=== PATIENT | male | born 1955 | race Caucasian/White ===

== ENCOUNTER 2023-06-29 08:18 | Outpatient (AMB) | payer MEDICARE, SELFPAY ==
--- NOTE | 2023-06-29 08:46 | MHC.OFFVIS ---
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 He is a patient of Dr. Lang. He is seen for the following urologic conditions - nephrolithiasis Telemedicine Evaluation 15 min Consultation [employer] Video attempted Had episode of balanitis Treated with topical powder - antifungal Plan for renal US in November Nephrolithiasis Prior intervention 2018 No recent imaging Review of Systems Const All systems reviewed & are unremarkable except as noted in HPI and below Reports no additional complaints Resp Reports no additional complaints GI Reports no additional complaints Reports as per HPI Musc Reports no additional complaints Physical Exam Telemedicine evaluation Appropriate responses Regular breathing rate and rhythm HEENT Head: Yes normal to inspection Ears: hearing grossly normal bilaterally Eyes General: appearance normal, both eyes and all related structures Neck Neck: Yes normal visual inspection Chest Chest palpation & inspection: normal inspection of the chest Resp Effort & Inspection: normal respiratory effort and able to speak in complete sentences Assessment & Plan Assessment & Plan (1) Nephrolithiasis: Code(s): N20.0 - Calculus of kidney Plan 6m f/u renal US Orders: Orders US renal BI 6 Months N20.0 - Calculus of kidney Patient Instructions: Imaging studies, laboratory and physical exam results were discussed and reviewed in detail. No major barriers to patient understanding were identified. An opportunity to ask questions regarding the treatment plan was provided. All questions were answered. The patient expressed understanding and agreement with the above treatment plan. The patient is aware they should contact our office by phone for worsening of their current condition or the appearance of new urologic symptoms. Compliance is encouraged with any medications and followup testing that is ordered. It is a privilege to participate in the urologic care of your patient. If you have any questions or concerns regarding treatment for the above conditions, or other urologic issues, please do not hesitate to contact me. The office telephone contact is [phone]. This note is constructed using voice recognition software. While every effort has been made to ensure accuracy field appraiser errors may have been included. Yours sincerely, Dr Johnny Gonzáles MD, VIN[facility] - Urology Providers of Expert, Compassionate Care for the Genitourinary System Telehealth Telehealth Location of provider rendering services: practice address Location of patient: address on file Patient Identification confirmed using: Name, : Yes Telehealth method: video Patient verbally consented to treatment: Yes Patient verbally consented to billing insurance company: Yes Patient informed of any privacy concerns related to visit: Yes Coding Level of Care Code Tele New Pt Level 3 (55930) Diagnoses Nephrolithiasis N20.0
== END 2023-06-29 10:17 | disposition home or self-care (01) ==
LOC: HO.HUSH 08:18
PROVIDERS: PCP Internal Medicine; Visit Provider Urology
DX: N20.0 Calculus of kidney (principal)
CPT/HCPCS: 99202

== ENCOUNTER → 2023-06-29 08:18 | Outpatient (BNVA) | payer MEDICARE, SELFPAY | PROVIDERS: PCP Internal Medicine; Visit Provider Urology ==

== ENCOUNTER 2024-01-28 13:18 | Outpatient (REF) | payer MEDICARE, SELFPAY ==
--- NOTE | ~2024-01-28 | US_ITS ---
EXAMINATION: US RETROPERITONEAL LIMITED (RENAL ONLY) CLINICAL INFORMATION: Calculus of kidney. COMPARISON: X-ray KUB 02/15/2019. TECHNIQUE: Real-time imaging of the kidneys. FINDINGS: RIGHT KIDNEY: 12.4 x 6.1 x 5.9 cm (SAG x AP x TRV). The kidney is normal in size, contour, and echogenicity. Renal cortical thickness is normal. No renal calculi or hydronephrosis. 2.1 cm simple cyst in the upper pole. 1.0 cm simple cyst in the mid kidney. No follow-up imaging is recommended. LEFT KIDNEY: 11.4 x 5.7 x 6.0 cm (SAG x AP x TRV). The kidney is normal in size, contour, and echogenicity. Renal cortical thickness is normal. No focal parenchymal lesions or hydronephrosis. 6 mm upper pole and 5 mm mid renal calculi. US/US renal BI IMPRESSION: Nonobstructing right renal calculi. No hydronephrosis.
== END 2024-01-28 13:19 | disposition home or self-care (01) ==
LOC: HO.US 13:18
PROVIDERS: Visit Provider Urology
DX: N20.0 Calculus of kidney (principal)
CPT/HCPCS: 76775

== ENCOUNTER 2024-02-11 09:53 | Outpatient (AMB) | payer MEDICARE, SELFPAY ==
--- NOTE | 2024-02-11 10:13 | MHC.OFFVIS ---
Intake Visit Reasons: US/Follow-up Intake Note: Patient is Present for Follow Up Urology Medication: None Antibiotic Allergies: Neomycin, Bacitracin Blood Thinners:None Allergies bacitracin [From NEOSPORIN ([id number])] Allergy (Unknown, Verified 02/11/24 10:15) RASH neomycin [From NEOSPORIN ([id number])] Allergy (Unknown, Verified 02/11/24 10:15) RASH polymyxin B [From NEOSPORIN ([id number])] Allergy (Unknown, Verified 02/11/24 10:15) RASH Neosporin Allergy (Unknown, Uncoded 02/11/24 10:15) Unknown Medication List - Last Reconciled 02/11/24 by Johnny Gonzáles MD amlodipine 10 mg PO DAILY atorvastatin 40 mg PO DAILY carvedilol 12.5 mg PO BID empagliflozin (Jardiance) 25 mg PO DAILY insulin degludec (Tresiba FlexTouch U-200 insulin) units subcut lisinopril 40 mg PO DAILY pen needle, diabetic (BD Vanda 2nd Gen Pen Needle) As directed sertraline 100 mg PO DAILY HPI Comments Details: Nate is a pleasant male. He is a patient of Dr. Lagn. He is seen for the following urologic conditions - nephrolithiasis in setting of diabetes Check hormonal labs Start tadalafil 5 mg daily Recently sold [employer] Nephrolithiasis Prior intervention 2019 Imaging - 02/03 renal ultrasound normal - bilateral cysts Diabetes - insulin and Jardiance Review of Systems Const Denies chills and Denies fever(s) Card Reports no additional complaints and Denies syncope Resp Denies cough GI Denies abdominal pain and Denies heartburn Reports as per HPI and Denies change in libido Neuro Denies syncope Psych Denies change in libido Endo Denies change in libido Physical Exam Const General: cooperative, healthy appearing, comfortable and no acute distress Orientation/consciousness: patient oriented x3 HEENT Face and sinus: Yes normal facial exam Mouth: moist mucous membranes Neck Neck: Yes normal visual inspection, Yes full ROM and Yes trachea midline Chest Chest palpation & inspection: normal inspection of the chest Resp Effort & Inspection: normal respiratory effort, able to speak in complete sentences and no respiratory distress GI Inspection: Yes normal to inspection Back/Spine/Pelvis Cervical Spine: normal cervical lordosis Thoracic/Lumbar Spine: thoracic and lumbar spine normal to inspection Skin General skin exam: no rashes or lesions noted Neuro General: patient oriented x3, gait normal, tone normal and moves all extremities Extrem General: Yes normal to inspection and Yes capillary refill normal Assessment & Plan Assessment & Plan (1) Low libido: Code(s): R68.82 - Decreased libido Category: Medical Plan Check baseline hormonal labs Six-month follow-up Trial tadalafil Orders: Orders Lutenizing Hormone 02/11/24 R68.82 - Decreased libido Estradiol Ultra Sensitive 02/11/24 E29.1 - Testicular hypofunction Sex Hormone Binding Globulin 02/11/24 R68.82 - Decreased libido Testosterone, Total 02/11/24 C61 - Malignant neoplasm of prostate Albumin Level 02/11/24 E29.1 - Testicular hypofunction Medications: New tadalafil 5 mg PO DAILY 90 tabs 0RF sexual activity 90 days R68.82 - Decreased libido Patient Instructions: Imaging studies, laboratory and physical exam results were discussed and reviewed in detail. No major barriers to patient understanding were identified. An opportunity to ask questions regarding the treatment plan was provided. All questions were answered. The patient expressed understanding and agreement with the above treatment plan. The patient is aware they should contact our office by phone for worsening of their current condition or the appearance of new urologic symptoms. Compliance is encouraged with any medications and followup testing that is ordered. It is a privilege to participate in the urologic care of your patient. If you have any questions or concerns regarding treatment for the above conditions, or other urologic issues, please do not hesitate to contact me. The office telephone contact is [phone]. This note is constructed using voice recognition software. While every effort has been made to ensure accuracy puppet master errors may have been included. Yours sincerely, Dr Johnny Gonzáles MD, [facility] - Urology Providers of Expert, Compassionate Care for the Genitourinary System Coding Level of Care Code Est Pt Level 4 (32208) Diagnoses Low libido R68.82
== END 2024-02-11 11:00 | disposition home or self-care (01) ==
PROVIDERS: Visit Provider Urology
DX: R68.82 Decreased libido (principal)
CPT/HCPCS: 99214

== ENCOUNTER → 2024-02-11 09:53 | Outpatient (BNVA) | payer MEDICARE, SELFPAY | PROVIDERS: Visit Provider Urology | DX: R68.82 Decreased libido (principal); N20.0 Calculus of kidney; E11.9 Type 2 diabetes mellitus without complications; Z79.4 Long term (current) use of insulin; Z79.84 Long term (current) use of oral hypoglycemic drugs | CPT/HCPCS: 99212 ==

== ENCOUNTER 2024-05-12 09:53 | Outpatient (AMB) | payer MEDICARE, SELFPAY ==
--- NOTE | 2024-05-12 10:35 | A.OFFVIS_ITS ---
Intake Visit Reasons: 3M Testosterone/Med Review(Tadalafil) Intake Note: Patient is Present for Follow Up Med Review: PT state here for follow on meds,He never received the meds Urology Medication:Tadalafil Antibiotic Allergies:Bacitracin,neomycin Blood Thinners:none Allergies bacitracin [From NEOSPORIN ([id number])] Allergy (Unknown, Verified 02/11/24 10:15) RASH neomycin [From NEOSPORIN ([id number])] Allergy (Unknown, Verified 02/11/24 10:15) RASH polymyxin B [From NEOSPORIN ([id number])] Allergy (Unknown, Verified 02/11/24 10:15) RASH Neosporin Allergy (Unknown, Uncoded 02/11/24 10:15) Unknown HPI Comments Details: Nate is a pleasant male. He is a patient of Dr. Lang. He is seen for the following urologic conditions - nephrolithiasis in setting of diabetes - hypogonadism Testosterone low Refill tadalafil prescription Start testosterone Three-month follow-up Recently sold [employer] Hypogonadism Lack of libido Decline energy Labs show low T in setting of diabetes 04/05 306 Nephrolithiasis Prior intervention 2019 Imaging - 02/03 renal ultrasound normal - bilateral cysts Diabetes - insulin and Jardiance Review of Systems Const Denies chills and Denies fever(s) Card Reports no additional complaints and Denies syncope Resp Denies cough GI Denies abdominal pain and Denies heartburn Reports as per HPI and Denies change in libido Neuro Denies syncope Psych Denies change in libido Endo Denies change in libido Physical Exam Const General: cooperative, healthy appearing, comfortable and no acute distress Orientation/consciousness: patient oriented x3 HEENT Face and sinus: Yes normal facial exam Mouth: moist mucous membranes Neck Neck: Yes normal visual inspection, Yes full ROM and Yes trachea midline Chest Chest palpation & inspection: normal inspection of the chest Resp Effort & Inspection: normal respiratory effort, able to speak in complete sentences and no respiratory distress GI Inspection: Yes normal to inspection Back/Spine/Pelvis Cervical Spine: normal cervical lordosis Thoracic/Lumbar Spine: thoracic and lumbar spine normal to inspection Skin General skin exam: no rashes or lesions noted Neuro General: patient oriented x3, gait normal, tone normal and moves all extremities Extrem General: Yes normal to inspection and Yes capillary refill normal Assessment & Plan Assessment & Plan (1) Hypogonadism in male: Code(s): E29.1 - Testicular hypofunction Category: Medical (2) Low libido: Code(s): R68.82 - Decreased libido Category: Medical (3) Nephrolithiasis: Code(s): N20.0 - Calculus of kidney Category: Medical (4) Erectile dysfunction associated with type 2 diabetes mellitus: Code(s): E11.69 - Type 2 diabetes mellitus with other specified complication; N52.1 - Erectile dysfunction due to diseases classified elsewhere Category: Medical Plan Start T Labs Orders: Orders Prostate Specific Antigen 3 Months E29.1 - Testicular hypofunction Testosterone, Total 3 Months E29.1 - Testicular hypofunction Medications: New needle (disp) 22 G (Easy Touch Hypodermic Needle) As directed for T injections 30 ea 0RF E29.1 - Testicular hypofunction needle (disp) 18 G (BD Regular Bevel [place]) As directed - draw up testosterone 30 ea 0RF E29.1 - Testicular hypofunction syringe (disposable) (BD Bulk Syringe Slip Tip) As directed 30 ea 0RF E29.1 - Testicular hypofunction testosterone cypionate (Depo-Testosterone) 100 mg (0.5 mL) subcut QWEEK 4 weeks 2 mL 5RF E29.1 - Testicular hypofunction tadalafil 5 mg PO DAILY 90 days 90 tabs 1RF sexual activity E11.69 - Type 2 diabetes mellitus with other specified complication, N52.1 - Erectile dysfunction due to diseases classified elsewhere Discontinued tadalafil Discontinued Reason: Patient Completed Course 5 mg PO DAILY 90 days 90 tabs 0RF sexual activity R68.82 - Decreased libido Patient Instructions: Imaging studies, laboratory and physical exam results were discussed and reviewed in detail. No major barriers to patient understanding were identified. An opportunity to ask questions regarding the treatment plan was provided. All questions were answered. The patient expressed understanding and agreement with the above treatment plan. The patient is aware they should contact our office by phone for worsening of their current condition or the appearance of new urologic symptoms. Compliance is encouraged with any medications and followup testing that is ordered. It is a privilege to participate in the urologic care of your patient. If you have any questions or concerns regarding treatment for the above conditions, or other urologic issues, please do not hesitate to contact me. The office te lephone contact is [phone]. This note is constructed using voice recognition software. While every effort has been made to ensure accuracy resource economist errors may have been included. Yours sincerely, Dr Johnny Gonzáles MD, [facility] - Urology Providers of Expert, Compassionate Care for the Genitourinary System Coding Level of Care Code Est Pt Level 4 (60402) Diagnoses Hypogonadism in male E29.1 Low libido R68.82 Nephrolithiasis N20.0 Erectile dysfunction associated with type 2 diabetes mellitus E11.69; N52.1
== END 2024-05-12 11:08 | disposition home or self-care (01) ==
PROVIDERS: Visit Provider Urology
DX: E29.1 Testicular hypofunction (principal); R68.82 Decreased libido; N20.0 Calculus of kidney; E11.69 Type 2 diabetes mellitus with other specified complication; N52.1 Erectile dysfunction due to diseases classified elsewhere
CPT/HCPCS: 99214

== ENCOUNTER → 2024-05-12 09:53 | Outpatient (BNVA) | payer MEDICARE, SELFPAY | PROVIDERS: Visit Provider Urology | DX: N20.0 Calculus of kidney (principal); E29.1 Testicular hypofunction; R68.82 Decreased libido; E11.69 Type 2 diabetes mellitus with other specified complication; N52.1 Erectile dysfunction due to diseases classified elsewhere | CPT/HCPCS: 99212 ==

== ENCOUNTER 2024-09-01 14:52 | Outpatient (AMB) | payer MEDICARE, SELFPAY ==
--- NOTE | 2024-09-01 14:53 | A.OFFVIS_ITS ---
Intake Visit Reasons: 3M PSA/Testo(set) Intake Note: Patient is present for 3M PSA/TESO Urology Medication:TADALAFIL Antibiotic Allergy:BACITRACIN,NEOMYCIN,POLYMYXIN,NEOSPORIN Blood Thinner:NONE Maintenance Technician 2Nd Shift Required: No Allergies bacitracin [From NEOSPORIN ([id number])] Allergy (Unknown, Verified 09/01/24 14:55) RASH neomycin [From NEOSPORIN ([id number])] Allergy (Unknown, Verified 09/01/24 14:55) RASH polymyxin B [From NEOSPORIN ([id number])] Allergy (Unknown, Verified 09/01/24 14:55) RASH Neosporin Allergy (Unknown, Uncoded 09/01/24 14:55) Unknown HPI Comments Details: Nate is a pleasant male. He is a patient of Dr. Lang. 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 [employer] Hypogonadism Lack of libido Decline energy Labs show low T in setting of diabetes 04/05 306, 08/06 T 800 PSA 0.7 Nephrolithiasis Prior intervention 2019 Imaging - 02/03 renal ultrasound normal - bilateral cysts Diabetes - insulin and Jardiance Review of Systems Const Denies chills and Denies fever(s) Card Reports no additional complaints and Denies syncope Resp Denies cough GI Denies abdominal pain and Denies heartburn Reports as per HPI and Denies change in libido Neuro Denies syncope Psych Denies change in libido Endo Denies change in libido Physical Exam Const General: cooperative, healthy appearing, comfortable and no acute distress Orientation/consciousness: patient oriented x3 HEENT Face and sinus: Yes normal facial exam Mouth: moist mucous membranes Neck Neck: Yes normal visual inspection, Yes full ROM and Yes trachea midline Chest Chest palpation & inspection: normal inspection of the chest Resp Effort & Inspection: normal respiratory effort, able to speak in complete sentences and no respiratory distress GI Inspection: Yes normal to inspection Back/Spine/Pelvis Cervical Spine: normal cervical lordosis Thoracic/Lumbar Spine: thoracic and lumbar spine normal to inspection Skin General skin exam: no rashes or lesions noted Neuro General: patient oriented x3, gait normal, tone normal and moves all extremities Extrem General: Yes normal to inspection and Yes capillary refill normal Assessment & Plan Assessment & Plan (1) Erectile dysfunction associated with type 2 diabetes mellitus: Code(s): E11.69 - Type 2 diabetes mellitus with other specified complication; N52.1 - Erectile dysfunction due to diseases classified elsewhere Category: Medical (2) Low libido: Code(s): R68.82 - Decreased libido Category: Medical Plan Six-month follow-up lab work Orders: Orders Prostate Specific Antigen 6 Months E29.1 - Testicular hypofunction Testosterone, Total 6 Months E29.1 - Testicular hypofunction Complete Blood Count no Diff 6 Months E29.1 - Testicular hypofunction Patient Instructions: Imaging studies, laboratory and physical exam results were discussed and r eviewed in detail. No major barriers to patient understanding were identified. An opportunity to ask questions regarding the treatment plan was provided. All questions were answered. The patient expressed understanding and agreement with the above treatment plan. The patient is aware they should contact our office by phone for worsening of their current condition or the appearance of new urologic symptoms. Compliance is encouraged with any medications and followup testing that is ordered. It is a privilege to participate in the urologic care of your patient. If you have any questions or concerns regarding treatment for the above conditions, or other urologic issues, please do not hesitate to contact me. The office telephone contact is [phone]. This note is constructed using voice recognition software. While every effort has been made to ensure accuracy wrapper sizer errors may have been included. Yours sincerely, Dr Johnny Gonzáles MD, [facility] - Urology Providers of Expert, Compassionate Care for the Genitourinary System Coding Level of Care Code Est Pt Level 4 (94945) Diagnoses Erectile dysfunction associated with type 2 diabetes mellitus E11.69; N52.1 Low libido R68.82
--- OUTSIDE RECORDS SUMMARY | 2024-09-01 14:53 | XMS_ITS ---
Author Name [facility] Organization Unknown History of Medication Use Medication Directions Dispensed Refills Start Date End Date Stat NovoLOG FLEXPEN, insulin aspart, 100 UNIT/ML prefilled pen injection INJECT 10 UNITS THREE TIMES DAILY BEFORE MEALS 06/03/2024 active tadalafil (CIALIS) 5 mg tablet TAKE 1 TABLET BY MOUTH DAILY FOR SEXUAL ACTIVITY 06/03/2024 active nystatin (MYCOSTATIN) 359651 UNIT/GM cream Apply topically 2 (two) times a day. 06/02/2024 active hydrocortisone (ANUSOL-HC) 2.5 % rectal cream Insert into the rectum 3 (three) times a day as needed for hemorrhoids. 06/02/2024 active testosterone cypionate (DEPO-TESTOSTERONE CYPIONATE) 200 mg/mL injection INJECT 0.5ML INTO SKIN ONCE A WEEK FOR 4 WEEKS 06/02/2024 active pyridoxine (B-6) 25 MG tablet Take 25 mg by mouth daily. 06/02/2024 active insulin degludec (Tresiba FlexTouch) 100 UNIT/ML prefilled pen injection ADMINISTER 16 UNITS UNDER THE SKIN DAILY AT BEDTIME 06/02/2024 active atorvastatin (LIPITOR) 20 MG tablet Take 1 tablet (20 mg total) by mouth daily. 02/14/2024 active Coenzyme Q10 (Co Q 10) 10 MG Cap Take 1 tablet by mouth. 02/12/2023 active Cholecalciferol (VITAMIN D3 PO) Take by mouth daily. 02/12/2023 active Ozempic, 1 MG/DOSE, 4 MG/3ML prefilled pen injection INJECT 1 MG UNDER THE SKIN ONCE A WEEK 02/12/2023 active polyethylene glycol (COLYTE) 240 g solution Night Before: Drink 8 Oz (1 cup) every 10 minutes until HALF of jug is finished. Day of: Drink 8 Oz (1 cup) every 10 minutes until empty. 02/12/2023 aborted amLODIPine (NORVASC) 10 MG tablet amlodipine 10 mg tablet TAKE ONE TABLET BY MOUTH ONE TIME DAILY 02/12/2023 active atorvastatin (LIPITOR) 20 MG tablet daily. 02/12/2023 active sodium chloride 0.9% (NS) infusion 150 mL/hr, Intravenous, Continuous, Starting on Angelina 04/22/23 at 0830, Pre-Procedure (GI)May adjust as needed. 04/25/2023 active sertraline (ZOLOFT) 100 MG tablet Take by mouth. 02/12/2023 active carvedilol (COREG) 12.5 MG tablet 2 (two) times a day. 02/12/2023 active lisinopril (PRINIVIL,ZeSTRIL) 40 MG tablet 02/12/2023 active empagliflozin (Jardiance) 25 MG tablet 02/12/2023 active glipiZIDE (GLUCOTROL XL) 10 mg 24 hr tablet Take 10 mg by mouth. 02/12/2023 active hydrochlorothiazide (MICROZIDE) 12.5 MG capsule 2 (two) times a day. 02/12/2023 active Sod Picosulfate-Mag Ox-Cit Acd (CLENPIQ) 10-3.5-12 MG-GM -GM/175ML Solution Take as directed 04/03/2023 active Problems Problem Status Onset Date Problem Type Date of Resolution Source Incisional hernia, without obstruction or gangrene active 2020-06-03 ProblemAct [facility] Essential hypertension active 2024-02-11 ProblemAct [facility] Renal cysts, acquired, bilateral active 2024-02-11 ProblemAct [facility] Adenomatous polyp of colon, unspecified part of colon active EncounterDiagnosisAct [facility] Hemorrhoids, unspecified hemorrhoid type active EncounterDiagnosisAct [facility] Skin rash active EncounterDiagnosisAct [facility] History of renal carcinoma active 2013-11-13 ProblemAct [facility] CKD stage 3a, GFR 45-59 ml/min active 2024-02-11 ProblemAct [facility] Smoking active 2024-02-11 ProblemAct [facility] Hyperlipidemia active 2013-11-13 ProblemAct [facility] CT Hx of adenomatous colonic polyps active 2020-06-09 ProblemAct [facility] Renal cell carcinoma of left kidney active 2024-02-11 ProblemAct [facility] Diarrhea active 2020-06-03 ProblemAct [facility] Diabetic nephropathy associated with type 2 diabetes mellitus active 2024-02-11 ProblemAct [facility] Fatty liver active 2013-12-20 ProblemAct [facility] Anxiety and depression active 2013-11-13 ProblemAct [facility] Increased BMI active 2020-06-03 ProblemAct [facility] T Diabetes mellitus active 2017-07-02 ProblemAct [facility]
== END 2024-09-01 15:34 | disposition home or self-care (01) ==
PROVIDERS: Visit Provider Urology
DX: E11.69 Type 2 diabetes mellitus with other specified complication (principal); N52.1 Erectile dysfunction due to diseases classified elsewhere; R68.82 Decreased libido
CPT/HCPCS: 99214

== ENCOUNTER → 2024-09-01 14:52 | Outpatient (BNVA) | payer MEDICARE, SELFPAY | PROVIDERS: Visit Provider Urology | DX: E29.1 Testicular hypofunction (principal); E11.69 Type 2 diabetes mellitus with other specified complication; N52.1 Erectile dysfunction due to diseases classified elsewhere; R68.82 Decreased libido; Z87.898 Personal history of other specified conditions | CPT/HCPCS: 99212 ==

== ENCOUNTER 2025-02-20 12:23 | Outpatient (REF) | payer MEDICARE, SELFPAY ==
[2025-02-20 13:37] LABS: Hematocrit 47.4 % (42.0-52.0); Hemoglobin 15.9 g/dl (14.0-18.0); Mean Corpuscular HGB Conc 33.5 g/dl (31.0-36.0); Mean Corpuscular Hemoglobin 31.1 pg (27.0-33.0); Mean Corpuscular Volume 92.6 fL (80.0-98.0); Mean Platelet Volume 10.9 fL (9.4-12.4); Platelet Count 234 X10*3/uL (160-400); Red Blood Count 5.12 X10*6/uL (4.60-5.80); Red Cell Distribution Width 12.8 % (11.0-16.0); White Blood Count 8.6 X10*3/uL (4.8-10.8)
[2025-02-20 14:09] LABS: Prostate Specific Antigen 2.56 ng/mL (<0.05-4.0)
--- OUTSIDE RECORDS SUMMARY | 2025-02-20 14:36 | XMS_ITS | Encounter Summary ---
Author Organization [facility] Address [address] [place] [address] Care Team Providers Care Hook And Eye Attacher Name Role Phone Jaymie Us DO Primary Care Provider Marie Hayes DO Unavailable Jacob Willis MD Primary Care Provider [phone] Encounter Details Date Type Department Care Team (Late st Contact Info) Description 02/14/2024 Scanned Document [facility] Department of Internal Medicine & Nephrology [place] [address] [facility] [address] [place] [address] Maykel Vizcaino MD 85 [facility] [address] [place], [place] [id number] Social History Tobacco Use Types Packs/Day Years Used Date Smoking Tobacco: Every Day Cigarettes 1 46.4 Started: 1977 Smokeless Tobacco: Never Alcohol Use Standard Drinks/Week Comments Yes 2 (1 standard drink = 0.6 oz pur e alcohol) 2 shots of vodka a day AUDIT-C Answer Date Recorded Q1: How often do you have a drink containing alcohol? 4 or more times a week 04/12/2020 Q2: How many drinks containi ng alcohol do you have on a typical day when you are drinking? 1 or 2 0 Q3: How often do you have si x or more drinks on one occasion? Not asked 04/12/2020 Sex and Gender Information Value Date Recorded Sex Assigned at Male 05/30/2024 3:00 PM EDT Legal Sex Male 9:11 AM EDT Gender Identity Male 05/30/2024 3:00 PM EDT Sexual Orientation Homosexual (lesbian or null) 0 05/30/2024 3:00 PM EDT documented as of this encounter Plan of Treatment Upcoming Encounters Date Type Department Care Team (Late st Contact Info) Description 03/30/2025 1:20 PM EDT Office Visit [facility] Department of Internal Medicine & Nephrology [place] [address] [place] [phone] Maykel Vizcaino MD [address] [address] 05/18/2025 1:00 PM EDT Office Visit [facility] Department of Internal Medicine [address] [address] Jacob Willis MD [address] [place] [address] 07/17/2025 2:00 PM EST Consult [facility] [place] [address] [place] [phone] Jacob Willis MD [address] [place] [address] Shilpa Wilkes MD [address] [place] [address] 02/22/2026 1:00 PM EDT Office Visit [facility] Department of Internal Medicine & Nephrology [place] [address] [place] [phone] Maykel Vizcaino MD [address] [address] documented as of this encounter Procedures Procedure Name Priority Date/Time Associated Diagnosis Comments LAB RESULT 02/14/2024 6:07 PM EDT documented in this encounter Results * LAB RESULT (02/14/2024 6:07 PM EDT) Maykel Vizcaino MD HX AMB PROCEDURES Final R esult documented in this encounter Visit Diagnoses Not on filedocumented in this encounter Care Teams Hook And Eye Attacher Relationship Specialty Start Date End Date Jaymie Us DO [address] [place] [address] PCP - General Family Medicine 02/10/23 02/06/25 Jacob Willis MD [address] [place] [address] PCP - General Internal Medicine 02/07/25 Marie Hayes DO [address] [place] [address] Endocrinology 02/11/24 documented as of this encounter
[2025-02-24 15:59] LABS: Testosterone, Total 318 ng/dL (250-1100)
== END 2025-02-20 12:24 | disposition home or self-care (01) ==
LOC: HO.10HDL 12:23
PROVIDERS: Visit Provider Urology
DX: E29.1 Testicular hypofunction (principal); Z12.5 Encounter for screening for malignant neoplasm of prostate
CPT/HCPCS: 36415; 84153; 84403; 85027

== ENCOUNTER 2025-03-06 13:08 | Outpatient (AMB) | payer MEDICARE, SELFPAY ==
--- NOTE | 2025-03-06 13:24 | MHC.OFFVIS ---
Intake Visit Reasons: 6m/labs Intake Note: Patient is present for 6M/LABS Urology Medication:TADALAFIL,TESTSERONE Antibiotic Allergy:BACITRACIN,NEOMYCIN,POLYMYCIN,NEOSPORIN Blood Thinner:NONE Mitigation Supervisor Required: No Allergies bacitracin (From NEOSPORIN ([id number])) Allergy (Unknown, Verified 03/06/25 13:27) RASH neomycin (From NEOSPORIN ([id number])) Allergy (Unknown, Verified 03/06/25 13:27) RASH polymyxin B (From NEOSPORIN ([id number])) Allergy (Unknown, Verified 03/06/25 13:27) RASH Neosporin Allergy (Unknown, Uncoded 03/06/25 13:27) Unknown HPI Comments Details: Nate is a pleasant male. He is a patient of Dr. Lang. He is seen for the following urologic conditions - nephrolithiasis in setting of diabetes - hypogonadism Six-month follow-up Had been spacing shots out secondary to acne Recommend dropping dosage to 0.4 cc weekly Prescriptions for right Previously ran [facility] Hypogonadism Lack of libido Decline energy Labs show low T in setting of diabetes 04/05 306, 08/06 T 800 PSA 0.7, 03/07 T 320 2.6 Wednesday Nephrolithiasis Prior intervention 2019 Imaging - 02/03 renal ultrasound normal - bilateral cysts Diabetes - insulin and Jardiance Review of Systems Const Denies chills and Denies fever(s) Card Reports no additional complaints and Denies syncope Resp Denies cough GI Denies abdominal pain and Denies heartburn Reports as per HPI and Denies change in libido Neuro Denies syncope Psych Denies change in libido Endo Denies change in libido Physical Exam Const General: cooperative, healthy appearing, comfortable and no acute distress Orientation/consciousness: patient oriented x3 HEENT Face and sinus: Yes normal facial exam Mouth: moist mucous membranes Neck Neck: Yes normal visual inspection, Yes full ROM and Yes trachea midline Chest Chest palpation & inspection: normal inspection of the chest Resp Effort & Inspection: normal respiratory effort, able to speak in complete sentences and no respiratory distress GI Inspection: Yes normal to inspection Back/Spine/Pelvis Cervical Spine: normal cervical lordosis Thoracic/Lumbar Spine: thoracic and lumbar spine normal to inspection Skin General skin exam: no rashes or lesions noted Neuro General: patient oriented x3, gait normal, tone normal and moves all extremities Extrem General: Yes normal to inspection and Yes capillary refill normal Assessment & Plan Assessment & Plan (1) Low libido: Code(s): R68.82 - Decreased libido Category: Medical (2) Erectile dysfunction associated with type 2 diabetes mellitus: Code(s): E11.69 - Type 2 diabetes mellitus with other specified complication; N52.1 - Erectile dysfunction due to diseases classified elsewhere Category: Medical Plan Adjust testosterone dosing Six-month follow-up labor Orders: Orders Prostate Specific Antigen 6 Months E29.1 - Testicular hypofunction Testosterone, Total 6 Months E29.1 - Testicular hypofunction Complete Blood Count no Diff 6 Months E29.1 - Testicular hypofunction Medications: Changed From tadalafil 5 mg PO DAILY 90 days 90 tabs 1RF sexual activity E11.69 - Type 2 diabetes mellitus with other specified complication, N52.1 - Erectile dysfunction due to diseases classified elsewhere To tadalafil [id number] [facility] [id number] Member [id number] 5 mg PO DAILY 90 tabs 1RF sexual activity 90 days E11.69 - Type 2 diabetes mellitus with other specified complication, N52.1 - Erectile dysfunction due to diseases classified elsewhere From testosterone cypionate (Depo-Testosterone) 100 mg (0.5 mL) subcut QWEEK 4 weeks 2 mL 5RF E29.1 - Testicular hypofunction To testosterone cypionate (Depo-Testosterone) 80 mg (0.4 mL) subcut QWEEK 2 mL 5RF 4 weeks E29.1 - Testicular hypofunction Patient Instructions: This note is constructed using voice recognition software. While every effort has been made to ensure accuracy vest baster errors may have been included. Imaging studies, laboratory and physical exam results were discussed and reviewed in detail. No major barriers to patient understanding were identified. An opportunity to ask questions regarding the treatment plan was provided. All questions were answered. The patient expressed understanding and agreement with the above treatment plan. The patient is aware they should contact our office by phone for worsening of their current condition or the appearance of new urologic symptoms. Compliance is encouraged with any medications and followup testing that is ordered. It is a privilege to participate in the urologic care of your patient. If you have any questions or concerns regarding treatment for the above conditions, or other urologic issues, please do not hesitate to contact me. The office telephone contact is [phone]. Sincerely, Dr Johnny Gonzáles MD, [facility] Compassionate Specialist Care for the Genitourinary System Coding Level of Care Code Est Pt Level 3 (09928) Complex EM visit Add On G2211 Diagnoses Low libido R68.82 Erectile dysfunction associated with type 2 diabetes mellitus E11.69; N52.1
== END 2025-03-06 14:02 | disposition home or self-care (01) ==
LOC: HO.HUSH 13:09
PROVIDERS: Visit Provider Urology
DX: R68.82 Decreased libido (principal); E11.69 Type 2 diabetes mellitus with other specified complication; N52.1 Erectile dysfunction due to diseases classified elsewhere
CPT/HCPCS: 99213; G2211

== ENCOUNTER → 2025-03-06 13:08 | Outpatient (BNVA) | payer MEDICARE, SELFPAY | PROVIDERS: Visit Provider Urology | DX: E29.1 Testicular hypofunction (principal) | CPT/HCPCS: 99212 ==

== ENCOUNTER 2025-08-31 07:25 | Outpatient (REF) | payer MEDICARE, SELFPAY ==
--- OUTSIDE RECORDS SUMMARY | 2025-08-31 07:28 | XMS_ITS | Clinical Summary ---
Author Organization [facility] Address [address] [place] [address] Care Team Providers Care Combination Window Installer Name Role Phone Taj Bonilla MD Primary Care Provider Allergies Active Allergy Reactions Criticality Noted Date Comments Bacitracin-Polymyxin B 05/28/2020 Metformin Hcl 05/28/2020 Medications Empagliflozin (Jardiance) 25 MG tablet 0 05/28/2020 Active glipiZIDE 2.5 MG Tablet 0 05/28/2020 Active hydroCHLOROthiaz margie (MICROZIDE) 12.5 MG capsule 0 05/28/2020 Act mayco Sertraline HCl (ZOLOFT) 25 MG tablet 0 05/28/2020 Active amLODIPine Besylate (NORVASC) 5 MG tablet 0 05/28/2020 Active Lisinopril (PRINIVIL,ZESTRI L) 30 MG tablet 0 05/28/2020 Act mayco Atorvastatin Calcium (LIPITOR) 80 MG tablet 0 05/28/2020 Active predniSONE (DELTASONE) 10 MG tablet Take 5 tabs qd for 2 days, take 4 tabs qd for 2 days, take 3 tabs qd for 2 days, take 2 tabs qd for 2 days, take 1 tab qd for 2 days 30 0 05/28/2020 Active Active Problems Problem Noted Date Diagnosed Date Impacted cerumen of left ear 05/28/2020 SNHL (sensory-neural hearing loss), asymmetrical 05/28/2020 High blood pressure 05/28/2020 Diabetes 05/28/2020 Renal cell cancer 05/28/2020 Inguinal hernia 05/28/2020 High cholesterol 05/28/2020 Family History Medical History Relation Name Comments Diabetes Other diabetes mellit us : Family History Hearing Loss Other deafness or hea ring loss : Family History Relation Name Status Comments Other Social History Tobacco Use Types Packs/Day Years Used Date Smoking Tobacco: Never Assessed Comments:Smoking Status:Curr ent smoker Sex and Gender Information Value Date Recorded Sex Assigned at Not on file Legal Sex Male 5:26 PM EDT Gender Identity Not on file Sexual Orientation Not on file Plan of Treatment Health Maintenance Due Date Last Done Comments Hepatitis C Screening 1955 DTaP/Tdap/Td (1 - Tdap) 1974 Eye/Retina Exam 1974 GFR 1974 LDL Cholesterol 1974 Microalbumin 1974 Pneumococcal 50+ years (1 of 1 - PCV) 2006 Zoster (Shingrix) (1 of 2) 2006 COVID-19 Vaccine ( - 2024-2 6 season) 2025 Influenza (#1) 2025 RSV (1 - 1-dose 75+ series) 2031 Abdominal Aorta Imaging Discontinued HPV Vaccine (No Doses Required) Completed Hep A Aged Out No longer eligi ble based on patient's age to complete this topic Hep B Aged Out No longer eligi ble based on patient's age to complete this topic Hib Aged Out No longer eligi ble based on patient's age to complete this topic Meningococcal ACWY Aged Out No longer eligible based on patient's age to complete this topic Zoster (Zostavax) Discontinued Care Teams Combination Window Installer Relationship Specialty Start Date End Date Taj Bonilla MD [address] [place] [address] PCP - General 04/19/23
--- OUTSIDE RECORDS SUMMARY | 2025-08-31 07:28 | XMS_ITS | Encounter Summary ---
Author Organization [facility] Address [address] [place] [address] Care Team Providers Care Conveyor Loader Name Role Phone Jaymie Us DO Primary Care Provider [phone] Marie Hayes DO Unavailable [phone] Jacob Willis MD Primary Care Provider [phone] Shilpa Wilkes MD Unavailable [phone] Jacob Willis MD Unavailable [phone] Encounter Details Date Type Department Care Team (Late st Contact Info) Description 09/18/2024 Scanned Document [address] [place] [phone] Provider, Generic Social History Tobacco Use Types Packs/Day Years Used Date Smoking Tobacco: Every Day Cigarettes 1 47 Started: 1977 Smokeless Tobacco: Never Alcohol Use [...] Care Team (Late st Contact Info) Description 09/03/2025 2:15 PM EST Office Visit [facility] Department of Internal Medicine [place] [address] [place] [address] Jacob Willis MD [address] [place] [address] 02/14/2026 12:30 PM EDT Appointment [address] [phone] Shilpa Wilkes MD [address] [place] [address] 02/14/2026 1:45 PM EDT Ancillary Procedure [address] [phone] Shilpa Wilkes MD [address] [place] [address] 02/18/2026 1:20 PM EDT Office Visit [address] [phone] Shilpa Wilkes MD [address] [place] [address] 05/24/2026 1:00 PM EDT Office Visit [facility] Department of Internal Medicine & Nephrology [place] [address] [place] [phone] Mark Nunez MD 85 [facility] [address] [place] [address] documented as of this encounter Visit Diagnoses Not on filedocumented in this encounter Care Teams Conveyor Loader Relationship Specialty Start Date End Date Jaymie Us DO [address] [place] [address] PCP - General Family Medicine 02/10/23 02/06/25 Jacob Willis MD [address] [place] [address] PCP - General Internal Medicine 02/07/25 Jacob Willis MD [address] [place] [address] PCP - [facility] Quiroga MA Attributed 07/14/25 Marie Hayes DO [address] [place] [address] [place] [address] Endocrinology 02/11/24 Shilpa Wilkes MD [address] [place] [address] Primary Oracle Soa Architect Cardiovascular 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
--- OUTSIDE RECORDS SUMMARY | 2025-08-31 07:28 | XMS_ITS | Clinical Summary ---
Author Organization [facility] Prior to 02/10/25 Address [address] [place] [address] Care Team Providers Care Coffee Maker Name Role Phone Unavailable Primary Care Provider Unavailabl e Allergies Active Allergy Reactions Criticality Noted Date Comments Fbggcajewc-Fofpgziv-Dvucpcqmj 2015 Medications Medication Sig Dispensed Refills Start Date End Date Status vitamin E 1000 UNIT capsule Take 1,000 Units by mouth daily. 0 Active sertraline (ZOLOFT) 100 MG tablet Take 100 mg by mouth daily. 0 Active glucose blood test strip Use to test blood sugar twice a day. 0 05/31/2015 Active Coenzyme Q10 (CO Q 10) 10 MG CAPS Take 1 tablet by mouth daily. 0 Active canagliflozin (INVOKANA) tablet 100 mg Take 100 mg by mouth daily. 0 04/14/2016 Active amLODIPine (NORVASC) tablet 10 mg Take 10 mg by mouth daily. 0 Active carvedilol (COREG) 12.5 MG tablet Take 12.5 mg by mouth 2 (two) times a day with meals. 0 Active hydroCHLOROthiazide (MICROZIDE) 12.5 MG capsule Take 12.5 mg by mouth 2 (two) times a day. 0 Active lisinopril (PRINIVIL,ZESTRIL) tablet 10 mg Take 10 mg by mouth daily. 0 Active atorvastatin (LIPITOR) tablet 20 mg Take 20 mg by mouth daily. 0 Active vitamin B-6 (PYRIDOXINE) 25 MG tablet Take 25 mg by mouth daily. 0 Active vitamin B-12 (CYANOCOBALAMIN) 100 MCG tablet Take 50 mcg by mouth daily. 0 Active vitamin D3 (VITAMIN D3) 25 MCG (1000 UT) tablet Take 1,000 Units by mouth daily. 0 Active Empagliflozin (Jardiance) 25 MG TABS Take 25 mg by mouth daily. 0 Active Active Problems No known active problems Immunizations Name Administration Dates Next Due Tdap 04/28/2016 Social History Tobacco Use Types Packs/Day Years Used Date Smoking Tobacco: Former Smokeless Tobacco: Never Alcohol Use Standard Drinks/Week Comments Yes 0 (1 standard drink = 0.6 oz pur e alcohol) Sex and Gender Information Value Date Recorded Sex Assigned at Male 08/30/2020 12:41 PM EST Gender Identity Not on file Sexual Orientation Not on file Job Start Date Occupation Industry Not on file Not on file Not on file Last Filed Vital Signs Vital Sign Reading Time Taken Comments Blood Pressure 113/62 08/30/2020 3:02 PM EST Pulse 74 08/30/2020 3:02 PM EST Temperature 36.9 C (98.5 F) 08/30/2020 3:02 PM EST Respiratory Rate 16 08/30/2020 3:02 PM EST Oxygen Saturation 98% 08/30/2020 3:02 PM EST Inhaled Oxygen Concentration - - Weight 104.3 kg (230 lb) 08/30/2020 11:47 AM EST Height 180.3 cm (5' 11 ) 08/30/2020 11:47 AM EST Body Mass Index 32.08 08/30/2020 11:47 AM EST Plan of Treatment Health Maintenance Due Date Last Done Comments Hepatitis C Screening 1955 COVID-19 Vaccine (#1) 1956 Depression Screening 1968 Preventative Health Evaluation 1974 Colon Cancer Screening (Colonoscopy) 2001 Shingrix-Zoster Vaccine (1 of 2) 2006 Fall Risk Assessment 2021 Pneumococcal Vaccine (2 of 2 - PCV) 2021 06/21/2019 Influenza Vaccine (#1) 2025 9, 07/06/2018, 06/30/2017, Additional history exists DTap / Tdap / Td (3 - Td or Tdap) 04/04/2028 04/04/2018, 04/28/2016 RSV Adult > 60+ Yrs or (1 - 1-dose 75+ series) 2031 Hepatitis B Vaccines Aged Out No long er eligible based on patient's age to complete this topic RSV Ped < 20 months Aged Out No longe r eligible based on patient's age to complete this topic
--- OUTSIDE RECORDS SUMMARY | 2025-08-31 07:28 | XMS_ITS | Encounter Summary ---
Author Organization [facility] Address [address] [place] [address] Care Team Providers Care Telepathist Name Role Phone Abeba Jaymieilda FREY Primary Care Provider [phone] Marie Hayes DO Unavailable [phone] Jacob Willis MD Primary Care Provider [phone] Shilpa Wilkes MD Unavailable [phone] Jacob Willis MD Unavailable [phone] Encounter Details Date Type Department Care Team (Late st Contact Info) Description 04/22/2023 Scanned Document [facility] [address] [place] [address] Bernabe Bobby MD 25 [facility] [address] [place] [address] Social History Tobacco Use Types Packs/Day Years [...] PM EDT documented as of this encounter Progress Notes * Bernabe Bobby MD - 04/22/2023 9:34 AM EDT Letter sent. Adenoma. 5-year recall. documented in this encounter Plan of Treatment Upcoming Encounters Date Type Department Care Team (Late st Contact Info) Description 09/03/2025 2:15 PM EST Office Visit [facility] Department of Internal Medicine [address] [address] Jacob Willis MD [address] [place] [address] 02/14/2026 12:30 PM EDT Appointment [address] [phone] Shilpa Wilkes MD [address] [place] [address] 02/14/2026 1:45 PM EDT Ancillary Procedure [address] [phone] Shilpa Wilkes MD [address] [place] [address] 02/18/2026 1:20 PM EDT Office Visit [address] [phone] Shilpa Wilkes MD [address] [place] [address] 05/24/2026 1:00 PM EDT Office Visit [facility] Department of Internal Medicine & Nephrology [place] [address] [place] [address] Mark Nunez MD [address] [address] documented as of this encounter Procedures Procedure Name Priority Date/Time Associated Diagnosis Comments HX GASTROENTEROLOGY COLONOSCOPY-SCAN 04/22/2023 8:57 AM EDT PATHOLOGY REPORT 04/22/2023 12:0 0 AM EDT documented in this encounter Results * HX GASTROENTEROLOGY COLONOSCOPY-SCAN (04/22/2023 8:57 AM EDT) us Bernabe Bobby MD HX AMB PROCEDURES Final Result * PATHOLOGY REPORT (04/22/2023 12:00 AM EDT) us Bernabe Bobby MD PATHOLOGY/CYTOLOGY ORDERABLES F inal Result documented in this encounter Visit Diagnoses Not on filedocumented in this encounter Care Teams Telepathist Relationship Specialty Start Date End Date [place] [address] [place] [address] PCP - General Family Medicine 02/10/23 02/06/25 Jacob Willis MD [address] [place] [address] PCP - General Internal Medicine 02/07/25 Jacob Willis MD [address] [place] [address] PCP - [facility] Quiroga MA Attributed 07/14/25 Marie Hayes DO [address] [place] [address] Endocrinology 02/11/24 Shilpa Wilkes MD [address] [place] [address] Primary Legal Word Processor Cardiovascular 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
--- OUTSIDE RECORDS SUMMARY | 2025-08-31 07:28 | XMS_ITS | Encounter Summary ---
Author Organization [facility] Address [address] [place] [address] Care Team Providers Care Supervisor Acoustical Tile Carpenters Name Role Phone Jaymie Us DO Primary Care Provider [phone] Marie Hayes DO Unavailable [phone] Jacob Willis MD Primary Care Provider Shilpa Wilkes MD Unavailable [phone] Jacob Willis MD Unavailable [phone] Encounter Details Date Type Department Care Team (Late st Contact Info) Description 02/14/2024 Scanned Document [facility] Department of Internal Medicine & Nephrology [place] [address] [facility] [address] [place] [phone] Maykel Vizcaino MD [address] [place] [address] Social History Tobacco Use Types Packs/Day Years [...] 09/03/2025 2:15 PM EST Office Visit [facility] Department of Internal Medicine [address] [phone] Jacob Willis MD [address] [place] [address] 02/14/2026 12:30 PM EDT Appointment [address] [phone] Shilpa Wilkes MD [address] [place] [address] 02/14/2026 1:45 PM EDT Ancillary Procedure [address] [phone] Shilpa Wilkes MD [address] [place] [address] 02/18/2026 1:20 PM EDT Office Visit [address] [phone] Shilpa Wilkes MD [address] [place] [phone] 05/24/2026 1:00 PM EDT Office Visit [facility] Department of Internal Medicine & Nephrology [place] [address] [place] [phone] Mark Nunez MD 85 [facility] [address] [place] [address] documented as of this encounter Procedures Procedure Name Priority Date/Time Associated Diagnosis Comments LAB RESULT 02/14/2024 6:07 PM EDT documented in this encounter Results * LAB RESULT (02/14/2024 6:07 PM EDT) Maykel Vizcaino MD HX AMB PROCEDURES Final R esult documented in this encounter Visit Diagnoses Not on filedocumented in this encounter Care Teams Supervisor Acoustical Tile Carpenters Relationship Specialty Start Date End Date Jaymie Us DO [address] [place] [address] PCP - General Family Medicine 02/10/23 02/06/25 Jacob Willis MD [address] [place] [address] PCP - General Internal Medicine 02/07/25 Jacob Willis MD [address] [place] [address] PCP - [facility] Quiroga MA Attributed 07/14/25 Marie Hayes DO [address] [facility] [address] [place] [address] Endocrinology 02/11/24 Shilpa Wilkes MD [address] [place] [address] Primary Samples And Repairs Preparer Cardiovascular 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
--- OUTSIDE RECORDS SUMMARY | 2025-08-31 07:28 | XMS_ITS | Data Portability ---
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 Regarding risk stratification for his HTN, and the status is CAD, we have reviewed ACC/AHA guidelines for cardiac follow-up (AUC #2 stress, AUC #69 ECHO). In an effort to treat the HTN I would recommend that we empirically increase carvedilol to 12.5 mg twice a day he will continue to follow blood pressure at home. We have also discussed the potential role that coarctation, PVD, JESSICA can play in rendering HTN issues difficult. Since there is a history of a renal issue we will also obtain renal artery vascular study. Our plan to proceed is outlined below. We have reviewed aggressive risk reduction strategies, diet recommendations, and aerobic conditioning recommendations. His blood work and lipids are followed by Dr. Us. [email or web address] Not available 01/09/2020 14:44:35 03/18/2020 03/18/2020 Mr Redmond has refractory HTN, CAD manifest with diabetes as a vascular disease equivalent, HLD, and other medical conditions as listed above. Recent nuclear stress reports an abnormal ECG that potentially correlates with the defect noted on nuclear stress imaging. We reviewed recommendations for further investigation via coronary angiography including risk/benefits. He will follow as below. I advised him to call with change in condition/symptoms . Our plan is as follows. We have reviewed aggressive risk reduction strategies, diet recommendations, and aerobic conditioning recommendations. His blood work and lipids are followed by Dr. Us. Not available 03/18/2020 14:37:20 Plan of Treatment Reminders Order Date Submit Date Provider Last Modified By Organization Details Last Modified Time Details Appointments None recorded. Lab CBC 2019 020 [email or web address] Not available 1 12:33:38 unlisted lab - [id number] 2019 [email or web address] Not available 1 16:29:26 PT/INR 2019 [email or web address] Not available 1 12:33:38 Referral follow up visit referral 2019 [email or web address] In-Office Order, Internal Use Only DO Not Attach Compendium DO Not Attach Compendium, Do Not Delete/merge, [id number] 0 08:45:38 follow up visit referral 2019 020 [email or web address] In-Office Order, Internal Use Only DO Not Attach Compendium DO Not Attach Compendium, Do Not Delete/merge, [id number] 0 08:45:38 Procedures None recorded. Surgeries cardiac catheteriz ation (SURG) 2019 [email or web address] Not available 0 10:03:46 Imaging US, echocardio gram, transthora cic, complete, w/ color flow - > 1 yr post last 2019 [email or web address] Not available 0 16:07:07 US, duplex, renal artery - ICD10 code updated as requested. 2019 [email or web address] Not available 0 12:11:06 pharmacolo gic stress test - discussed procedure, risks, options and alternativ es 2019 [facility] Former[facility] (Imaging), [address], [place], [address], 0 08:51:01 Medication Orders carvedilol 12.5 mg tablet 2019 020 [email or web address] [id number], [address], [place], [address], 0 14:58:31 Patient TargetsNo targets recorded. Patient Instructions Encounter Date Encounter Id Patient Instructions Last Modified By Organization Details Last Modified Time 01/09/2020 [id number] blood pressure check* [email or web address] Not available 01/10/2020 16:43:38 need for follow-up [email or web address] Not available 01/09/2020 14:46:13 03/18/2020 [id number] Peripheral Arterial Disease (PAD): Care Instructions Not available 03/18/2020 14:27:32 high cholesterol : care instructions Not available 03/18/2020 14:27:33 high blood pressure: care instructions Not available 03/18/2020 14:27:32 learning about high blood pressure Not available 03/18/2020 14:27:33 Reason for Referral Follow Up Visit Referral for Hypertensive disorder Referring Physician: Landon Hart, Cardiology, Encounter Date: 01/09/2020 Follow Up Visit Referral for Coronary arteriosclerosis in [place] artery Referring Physician: Landon Hart Cardiology, Encounter Date: 01/09/2020 Results Created Date Observation Date Name Description Value Unit Range Abnormal Flag Note LastModifiedBy Organization Detail LastModifiedTime 02/27/20 20 02/26/2020 US, echoc ardio gram, trans thora cic, compl ete, w/ color flow No observ ation record ed. [facility] [address], [place], [address], 03/18/2020 14:32:35 03/11/20 20 NM, myoca rdial perfu deepa scan No observ ation record ed. [email or web address] ([facility]) [address] [place] [address] [address], [place], [address], 03/18/2020 14:32:35 03/11/20 20 NM, myoca rdial perfu deepa scan No observ ation record ed. [facility] [place] (Imaging) [address] [facility] [address], [place], [address], 03/18/2020 14:32:35 03/11/20 20 NM, myoca rdial perfu deepa scan No observ ation record ed. [place] [id number] [facility] [place] (Imaging) [address] [facility] [address], [place], [address], 03/18/2020 14:32:35 03/11/20 20 03/11/2020 elect rocar diogr am No observ ation record ed. [place] [id number] [facility] (Imaging) [address] [facility] [address], [place], [address], 03/18/2020 14:32:35 03/11/20 20 03/11/2020 elect rocar diogr am No observ ation record ed. [place] [id number] [facility] [place] (Imaging) [address] [facility] [address], [place], [address], 03/18/2020 14:32:35 03/11/20 20 03/11/2020 pharm acolo gic stres s test No observ ation record ed. [place] [id number] [facility] (Im[facility]) [address], [place], [address], 03/18/2020 14:32:35 03/12/20 20 03/11/2020 pharm acolo gic stres s test No observ ation record ed. [place] [id number] [facility] (Imaging) [address] [facility], [place], [address], 03/18/2020 14:32:35 03/14/20 20 US, duple x, renal arter y No observ ation record ed. [address] (Outpt Scheduling) [address], [place], [address], 03/18/2020 14:32:35 Result Notes None recorded. Problems Name Problem SNOMED Code Status Onset Date Resolution Date Notes Provider Name and Address Organization Details Recorded Time Type 2 diabetes mellitus 58348677 Active Gina Hope, [employer] null, [facility] [place] 0 08:29:11 Hypertensive disorder 95446274 Active Gina Hope, [employer] OFFICER null, [facility] [place] 0 08:29:22 Hyperlipidemia 95294284 Active Gina Hope, [employer] OFFICER null, [address] 0 08:29:34 Hyponatremia 03390203 Active Gina Hope, [employer] OFFICER null, [address] 0 08:29:46 Urolithiasis 05406827 Active Gina Hope, [employer] OFFICER null, [address] 0 08:42:47 Syncope 808223001 Active Gina Hope, 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UE OFFICER [address] 0 08:41:56 Problem Notes None recorded. Procedures Surgical History Date Name Laterality Status Provider Name and Address Organization Details Recorded Time 09/13/19 11 Hernia Repair completed Gina Hope [address] 01/09/2020 08:27:53 09/13/19 10 partial nephrectomy completed Gina Hope[address] 01/09/2020 08:49:45 09/13/19 07 lithotripsy completed Ginaralph BangHope[address] 01/09/2020 08:26:42 09/13/18 89 subtotal thyroidectomy completed Gina Hope, [address] 01/09/2020 08:26:15 Imaging Results None recorded. Procedure Notes None recorded. Medical Equipment None Reported. Allergies Allergen ID Allergen Name Allergen Category Reaction Reaction Severity Criticality Documentation Date Start Date Code Code System Note Provider Name and Address Organization Details Recorded Time 672251 bacitraci n / neomycin / polymyxin B medicatio n Not available Not available Not available 01/09/2020 54230 9 RxNorm Alma Garza MA елена, [facility] [place] 0 14:07:34 Medications Name Sig Start Date Stop Date Status Note LastModified by Organization Details LastModified Time atorvastati n 40 mg tablet Take 1 tablet every day by oral route. 01/08 completed Not Available Not Available Not Available metformin 500 mg tablet 03/18 completed Not Available Not Available Not Available acetaminoph en 325 mg tablet Take 2 tablets every 6 hours by oral route as needed. 03/18 completed Not Available Not Available Not Available carvedilol 6.25 mg tablet TAKE ONE TABLET BY MOUTH TWICE A DAY 03/18 completed Not Available Not Available Not Available atorvastati n 20 mg tablet TAKE ONE TABLET BY MOUTH ONE TIME DAILY active Not Available Not Available No t Available carvedilol 12.5 mg tablet TAKE 1 TABLET BY MOUTH TWICE DAILY active Not Available Not Available No t Available azithromyci n 250 mg tablet 01/08 completed Not Available Not Available Not Available levetiracet am 500 mg tablet 01/08 completed Not Available Not Available Not Available glipizide ER 10 mg tablet, extended release 24 hr 1 qd active Not Available Not Available Not Available glipizide 10 mg tablet Take 1.5 tablets every day by oral route. 01/08 completed Not Available Not Available Not Available rizatriptan 10 mg tablet Take 1 tablet 3 times a day by oral route as needed. 01/08 completed Not Available Not Available Not Available sertraline 100 mg tablet TAKE ONE TABLET BY MOUTH ONE TIME DAILY active Not Available Not Available No t Available hydrocodone 10 mg-acetamin ophen 325 mg tablet 01/08 completed Not Available Not Available Not Available carvedilol 3.125 mg tablet Take 1 tablet twice a day by oral route. 01/08 completed Not Available Not Available Not Available ofloxacin 0.3 % ear drops 03/18 completed Not Available Not Available Not Available amlodipine 10 mg tablet TAKE ONE TABLET BY MOUTH ONE TIME DAILY active Not Available Not Available No t Available rizatriptan 10 mg disintegrat ing tablet PLACE ONE TABLET BY MOUTH THREE TIMES A DAY NEEDED FOR HEADACHE 03/18 completed Not Available Not Available Not Available simvastatin 20 mg tablet Take 1 tablet every day by oral route. 03/18 completed Not Available Not Available Not Available hydrochloro thiazide 12.5 mg capsule TAKE ONE CAPSULE BY MOUTH TWICE A DAY active Not Available Not Available No t Available methylpredn isolone 4 mg tablets in a dose pack 01/08 completed Not Available Not Available Not Available lisinopril 40 mg tablet TAKE ONE TABLET BY MOUTH ONE TIME DAILY active Not Available Not Available No t Available metformin ER 500 mg tablet,exte nded release 24 hr 1 qam 1/2 qpm active Not Available Not Available No t Available amoxicillin 500 mg-potassiu m clavulanate 125 mg tablet 01/08 completed Not Available Not Available Not Available Co Q-10 300 mg capsule Take 1 capsule every day by oral route. active Not Available Not Available No t Available hydrochloro thiazide 12.5 mg tablet Take 1 tablet every day by oral route. 01/08 completed Not Available Not Available Not Available FreeStyle Lite Strips TEST BLOOD GLUCOSE LEVELS FOUR TIMES A DAY active Not Available Not Available No t Available butalbital- acetaminoph en-caffeine 50 mg-300 mg-40 mg capsule Take 1 capsule every 4 hours by oral route as needed. 03/18 completed Not Available Not Available Not Available Jardiance 10 mg tablet TAKE ONE TABLET BY MOUTH EVERY MORNING active Not Available Not Available No t Available Vitals Date Recorded Body weight Systolic And Diastolic Provider Name and Address Organization Details Last Updated DateTime 01/09/2020 586758.25 g 165/84 mm[Hg] Alma Garza MA [facility] [place] 01/09/2020 14:09:45 Date Recorded Body weight Body mass index (BMI) Body height Heart rate Systolic And Diastolic Provider Name and Address Organization Details Last Updated DateTime 03/18/2020 054246.9 8 g 34.1 kg/m2 177.8 cm 72 /min 118/80 mm[Hg] Lizz Schaefer LPN [address] 03/18/2020 14:04:16 Social History Question Answer Notes LastModified by Organizat ion Details LastModified Time Tobacco Smoking Status Current Every Day Smoker 1 pack daily. Counseled to eradicate that activity immediately. Alma Garza MA [address] 01/09/2020 14:08:03 What Is Your Level Of Caffeine Consumption? Moderate 2-3 Coffee Daily Information not available 01/09/2020 What Type Of Diet Are You Following? REGULAR No Meat Information not available 01/09/2020 Live Alone Or With Others? With Others [email or web address] Information not available 03/18/2020 How Much Tobacco Do You Smoke? 1 PPD Information not available 03/18/2020 General Stress Level Low Information not available 01/09/2020 Sex: Unknown Functional Status Question Answer Note LastModified by Organizat ion Details LastModified Time What is your level of alcohol consumption? Occasional 1/day, wine w maile casey [email or web address] Information not available 01/09/2020 What is your occupation? 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 Occasional yard work [email or web address] Information not available 03/18/2020 Mental Status None recorded. Family History Relationship Description Onset Age of this Age Resolved Age Notes LastModified by Organization Details LastModified Time Mother Heart disease 60 CHF [email or web address] Not available 2019 14:25:14 Medical History No medical history recorded. Past Encounters Encounter ID Performer Location Encounter Start Date Encounter Closed Date Diagnosis/Indication Diagnosis SNOMED-CT Code Diagnosis ICD10 Code Diagnosis IMO Codes Diagnosis Note [id number] Landon Hart MD [id number] [facility] [address] [place] [phone] 01/09/2020 14:01:11 01/09/2020 14:53:26 Hypertensive disorder 57666160 I10 Coronary arteriosclerosis in [place] artery 6929578932 107 I25.10 I25.110 I25.365 [id number] IVELISSE Hart [id number] [facility] [address] [place] [phone] 03/18/2020 13:49:43 03/18/2020 14:32:57 Cardiovascular stress test abnormal 299312142 R94.39 Benign ess ential hypertension 7379886 I10 Peripheral vascular disease 862473000 I73.9 Hyperlipidemia 23401498 E78.5 Health Concerns Section Related Observation LastModified by Organization Detai ls LastModified Time None Recorded Concern Status LastModified by Organization Details LastModified Time None Recorded Advance Directives Directive None Recorded Payers Insurance Date Sequence Insurance Name Policy Number Policy Bowman Covered Member ID Bowman Member ID Guarantor Name 03/18/2020 1 [place] [id number] Nate Redmond [id number] Nate Redmond Notes Date Note Type Note Provider Name and Address Organization Details Recorded Time 01/09/2020 text/html ROS as noted in the HPI DANIELLE Sullivan M10.12.6 Presents for evaluation of the followin) Atherosclerotic heart disease a) Diabetes as a vascular disease equivalent b) Stress nuclear study c) Risks for CAD recommended for aggressive risk factor reduction 2) Rhythm a) Episode of syncope 10/02--associated with intracranial hemorrhage noted on admit. i) Hospitalization in SRQ reportedly negative 3) HTN a) Onset 2016 b) BP higher on the L. c) Norvasc d) HCTZ e) Carvedilol. 4) Hyperlipidemia a) Zocor b) f/b Dr Us. 5) Endocrine a) Diabetes mellitus type 2 b) Metformin. c) F/b Dr. 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 c) f/b Dr Hernandez SRQ. d) Family hx brain aneurysm i) Prior scans negative. 7) Urology and oncology a) Kidney cancer 2009 b) Nephrectomy L partial c) Incisional hernia. d) f/b CT e) f/b Dr Eliecer GIBSON. f) f/b u/s. g) prior urolithiasis. Mr Redmond has been referred through the courtesy of Dr Us. He has the history of a heart investigation as above, triggered by an episode of syncope - he has not had typical angina in the past. Generally he is active and able to work in the yard. He walks several hundred feet. Tele visit: He had a fall in 10/02 and had a TBI. He was cleaning a windshield and tripped on something on the ground. He was knocked out. He awoke with EMS on scene. He was found to have intracranial hemorrhage. He was treated medically. He was noted to have markedly elevated BP in the hospital. Cardiac follow up was recommended. He has measured BP 167/97-100. Medications were adjusted via Dr Us, and the measurements are starting to improve. He has not had chest discomfort or limiting dyspnea. [place] [employer] Society angina class score = zero. [place] Heart Association heart failure class score = zero. He denies limiting dyspnea, palpitations, syncope, orthopnea, PND or edema. There has been no recent one sided weakness, numbness, slurred speech or vision changes. The remainder of the systems review (by me) is non contributory. Landon Hart MD [address], [place], [address], [facility] [place] 01/09/2020 14:47:05 03/18/2020 text/html ROS as noted in the HPI 1) Atherosclerotic heart disease a) Diabetes as a vascular disease equivalent b) Pharmacologic nuclear study February 2020: Medium and moderate zone anterior and apical infarction. No definite segmental ischemia. LVEF 53%. Negative ECG portion. Comment: Abnormal ECG potentially correlates with this defect though no definite segmental ischemia is identified. Recommend consider further investigation. Asymptomatic options include clinical follow-up. c) Risks for CAD recommended for aggressive risk factor reduction 2) Rhythm a) Episode of syncope 10/02--associated with intracranial hemorrhage noted on admit. i) Hospitalization in SRQ reportedly negative b) ECHO Doppler February 2020: The left ventricle is normal in size. There is mild concentric left ventricular hypertrophy. There is normal left ventricular wall motion with a normal ejection fraction. The estimated ejection fraction is >55%. Diastolic dysfunction with probably normal left ventricular filling pressures. Mild aortic stenosis with a mean gradient of 9mmHg, and a calculated valve area of 1.9cm^2. Mild mitral regurgitation. There is mild pulmonary insufficiency (1+). Trace tricuspid regurgitation. Comment: Preserved LV function with mild valve regurgitation. No change in therapy required based on this result. 3) HTN a) Onset 2016 b) BP higher on the L. Correct measurements are therefore taken on the left. c) Norvasc d) HCTZ e) Carvedilol. f) Renal US ([facility]) 01/2020: bilat <60%. Abd aorta normal dimension with mild-mod diffuse disease 4) Hyperlipidemia a) Zocor b) f/b Dr Us. 5) Endocrine a) Diabetes mellitus type 2 b) Metformin. c) F/b Dr. 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 c) f/b Dr Hernandez SRQ. d) Family hx brain aneurysm i) Prior scans negative. 7) Urology and oncology a) Kidney cancer 2009 b) Nephrectomy L partial c) Incisional hernia. d) f/b CT e) f/b Dr Eliecer GIBSON. f) f/b u/s. g) prior urolithiasis. Mr Redmond has been referred through the courtesy of Dr Us. He has the history of a heart investigation as above, triggered by an episode of syncope - he has not had typical angina in the past. Generally he is active and able to work in the yard. He walks several hundred feet. He does not exert a dedicated fashion. He reports today for follow up and test results. Since his last visit he has felt similar. He denies chest pain or limiting dyspnea. We reviewed recent stress, echo and renal vascular study including recommendations based upon the findings. Questions answered. He reports the BP has been well controlled outside of the office He denies limiting dyspnea, palpitations, syncope, orthopnea, PND or edema. There has been no recent one sided weakness, numbness, slurred speech or vision changes. The remainder of the systems review (by me) is non contributory. Dalia Landrum, SHERMAN-C [address] [facility],[address], [place], [address], [facility] [place] 03/18/2020 14:37:31
--- OUTSIDE RECORDS SUMMARY | 2025-08-31 07:28 | XMS_ITS | Encounter Summary ---
Author Organization [facility] Address [address] [place] [address] Care Team Providers Care Ac/Dc Rewinder Name Role Phone Jaymie Us DO Primary Care Provider [phone] Marie Hayes DO Unavailable [phone] Jacob Willis MD Primary Care Provider [phone] Shilpa Wilkes MD Unavailable [phone] Jacob Willis MD Unavailable [phone] Encounter Details Date Type Department Care Team (Late st Contact Info) Description 09/18/2024 Scanned Document [address] [place] [phone] Provider, Generic Social History Tobacco Use Types [...] Visit [facility] of [facility] [place] [address] [place] [address] Jacob Willis MD [address] [place] [address] 02/14/2026 12:30 PM EDT Appointment [address] [phone] Shilpa Wilkes MD [address] [place] [address] 02/14/2026 1:45 PM EDT Ancillary Procedure [address] [phone] Shilpa Wilkes MD [address] [place] [address] 02/18/2026 1:20 PM EDT Office Visit [address] [phone] Shilpa Wilkes MD [address] [place] [address] 05/24/2026 1:00 PM EDT Office Visit [facility] of Internal Medicine & Nephrology [place] [address] [place] [phone] Mark Nunez MD [address] [facility] [address] [place] [address] documented as of this encounter Visit Diagnoses Not on filedocumented in this encounter Care Teams Ac/Dc Rewinder Relationship Specialty Start Date End Date Jaymie Us DO [address] [place] [address] PCP - General Family Medicine 02/10/23 02/06/25 Jacob Willis MD [address] [place] [address] PCP - General Internal Medicine 02/07/25 Jacob Willis MD [address] [place] [address] PCP - Lisandro Quiroga MA Attributed 07/14/25 Marie Hayes DO [address] [place] [id number] Endocrinology 02/11/24 Shilpa Wilkes MD [address] [place] [address] Primary [place] [facility] Professor Cardiovascular 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
--- OUTSIDE RECORDS SUMMARY | 2025-08-31 07:28 | XMS_ITS | Data Portability ---
Author Organization [place] - [facility] [employer], [employer], [facility] Address [address] [place] [address] Care Team Providers Care Kit Planner Name Role Phone SEBASTIAN LONG Primary Care Provider SEBASTIAN LONG Referring Provider Assessment No assessment recorded. Plan of Treatment Reminders Order Date Submit Date Provider Last Modified By Organization Details Last Modified Time Details Appointments None recorded. Lab HbA1c (hemoglobi n A1c), blood 2022 024 [email or web address], [address], [place], [address], 5 08:09:06 CMP, serum or plasma 2022 024 [email or web address], [address] [place], [address], 5 08:09:16 venipunctu re 2022 024 [email or web address] [facility], [address] [place], [address], 5 08:09:27 microalbum in/creatin ine, ratio, urine 2022 024 [email or web address], [address], [place], [address], 5 08:09:36 TSH, serum or plasma [address] [facility], [address], [place], [address], 5 08:09:47 lipid panel, serum 2021 023 [facility], [address], [place], [address], 3 13:36:23 HbA1c (hemoglobi n A1c), blood 2021 023 [facility], [address], [place], [address], 3 14:21:42 HbA1c (hemoglobi n A1c), blood 2021 023 [facility], [address], [place], [address], 3 13:36:20 CMP, serum or plasma 2021 023 [facility], [address], [place], [address], 3 13:36:22 venipunctu re 2021 023 [facility], [address], [place], [address], 3 11:13:14 HbA1c (hemoglobi n A1c), blood 2021 022 [facility], [address], [place], [address], 3 05:02:19 HbA1c (hemoglobi n A1c), blood 2021 022 [facility], [address], [place], [address], 17:41:59 CMP, serum or plasma 2021 022 [facility], [address], [place], [address], 17:42:00 venipunctu re 2021 022 [facility], [address], [place], [address], 13:47:11 microalbum in, urine 2021 022 [facility], [address], [place], [address], 17:53:46 TSH, serum or plasma 2021 022 [facility], [address], [place], [address], 17:42:01 lipid panel, serum 2021 022 [facility], [address], [place], [address], 12:30:19 HbA1c (hemoglobi n A1c), blood 2021 022 [facility], [address], [place], [address], 15:21:10 CMP, serum or plasma 2021 022 [facility], [address], [place], [address], 2 15:21:10 venipunctu re 2021 022 [facility], [address], [place], [address], 2 12:05:05 HbA1c (hemoglobi n A1c), blood 2021 022 [facility], [address], [place], [address], 2 12:30:18 CMP, serum or plasma 2021 022 [facility], [address], [place], [address], 2 12:30:18 venipunctu re 2021 022 [facility], [address], [place], [address], 2 08:55:38 HbA1c (hemoglobi n A1c), blood 2020 021 [facility], [address], [place], [address], 1 17:33:35 CMP, serum or plasma 2020 021 [facility], [address], [place], [address], 1 17:33:36 venipunctu re 2020 021 [facility], [address], [place], [address], 1 10:50:33 microalbum in, urine 2020 021 [facility], [address], [place], [address], 1 16:05:48 TSH, serum or plasma 2020 021 [facility], [address], [place], [address], 17:33:36 Referral None recorded. Procedures None recorded. Surgeries None recorded. Imaging None recorded. Medication Orders Tresiba FlexTouch U-200 insulin 200 unit/mL (3 mL) subcutaneo us pen 2022 023 [id number], [address] [place], [address], 3 13:32:43 Tresiba FlexTouch U-200 insulin 200 unit/mL (3 mL) subcutaneo us pen 2021 022 [email or web address] [id number], [address] [place], [id number], 2 13:33:30 Ozempic 2 mg/dose (8 mg/3 mL) subcutaneo us pen injector 2021 022 [id number], [address], [place], [place], [id number], 13:08:00 Tresiba FlexTouch U-200 insulin 200 unit/mL (3 mL) subcutaneo us pen 2021 022 [id number], [address], [place], [place], [id number], 10:47:02 Ozempic 1 mg/dose (4 mg/3 mL) subcutaneo us pen injector 2021 022 [id number], [address] [place], [id number], 2 12:52:27 Jardiance 25 mg tablet 2021 022 [id number], [address], [place], [place], [id number], 12:52:25 Tresiba FlexTouch U-200 insulin 200 unit/mL (3 mL) subcutaneo us pen 2020 [facility][id number], [address] [place], [id number], 10:45:51 Ozempic 1 mg/dose (4 mg/3 mL) subcutaneo us pen injector 2020 [facility][id number], [address] [place], [id number], 10:45:49 Patient TargetsNo targets recorded. Patient Instructions Encounter Date Encounter Id Patient Instructions Last Modified By Organization Details Last Modified Time 07/22/2021 [id number] type 2 diabetes: care instructions [email or web address] Not available 07/22/2021 10:34:12 Increase Tresiba to 50 units daily. Increase Ozempic to 1 mg once a week. Continue Jardiance 25 mg daily. Use Freestyle lissette 4 times a day. Return in 3 months [email or web address] Not available 07/22/2021 10:37:46 10/21/2021 [id number] type 2 diabetes: care instructions [email or web address] Not available 10/21/2021 11:18:51 Increase Tresiba to 56 units daily.. If fasting sugar is not get close to 100 in a week, increase Tresiba to 60 units. Continue Ozempic 1 mg once a week, Jardiance 25 mg daily Continue using Freestyle Lissette at least 4 times a day. Get labs before next visit Return in 3 months [email or web address] Not available 10/21/2021 23:35:40 01/20/2022 [id number] type 2 diabetes: care instructions [email or web address] Not available 01/20/2022 11:04:32 Tresiba 56 units daily.. Jardiance 25 mg daily Increase Ozempic to 2 mg once a week If fasting blood sugar falls below 100 on the higher dose of Ozempic, decrease Tresiba to 46 units daily. Start using Freestyle Lissette at least 4 times a day Get an eye examination in April 2022 and bring in a copy of your eye exam at your next visit. Return in June 2022 [email or web address] Not available 01/20/2022 11:08:41 07/23/2022 [id number] type 2 diabetes: care instructions [email or web address] Not available 07/23/2022 13:37:36 Tresiba 56 units daily. Ozempic 1 mg once a week Jardiance 25 mg daily Use Freestyle lissette 4 times a day. Send us a copy of your eye exam from [place] Get fasting work before next visit. Return in 4 months [email or web address] Not available 07/23/2022 13:35:52 11/19/2022 [id number] type 2 diabetes: care instructions [email or web address] Not available 11/19/2022 13:32:39 Tresiba 64 units daily.. Jardiance 25 mg daily Ozempic 1 mg once a week Use Freestyle Lissette 4 times a day. Get an eye exam in [place] in May 2023 and have your eye doctor send us a report. Get lab work just before your next visit Return in July 2023 [email or web address] Not available 11/19/2022 13:30:39 Reason for Referral None Reported. Results Created Date Observation Date Name Description Value Unit Range Abnormal Flag Note LastModifiedBy Organization Detail LastModifiedTime 07/22/20 21 07/22/2021 MICRO ALBUM IN, RAND( UR/CR EAT) ualb 10.4 mg/L No refer ence range estab lishe d Not Available [facility] [address] [place], [address], 07/22/2021 16:05:48 07/22/20 21 07/22/2021 MICRO ALBUM IN, RAND( UR/CR EAT) creu 76.2 mg/dL Not Available [facility] [address] [place], [address], 07/22/2021 16:05:48 07/22/20 21 07/22/2021 MICRO ALBUM IN, RAND( UR/CR EAT) AC ratio 13.66 calc <30.00 REFER ENCE INTER VALS: The Ameri can [employer] iatio n defin ition of moder ately incre ased urine album in urine spot colle ction (mcg/ mg creat inine ) Amaya l is <30, Moder ately incre ased is 30-22 9, Clini dave album inuri a is >= 300. For diagn ostic purpo ses resul ts shoul d alway s be asses sed in conju ction with the patie nt's medic al histo ry, clini dave exami natio n and other findi ngs. Not Available [facility] [address] [place], [address], 07/22/2021 16:05:48 07/22/20 21 07/22/2021 A1C hemoglobin A1C 7.5 % 4.3-5. 6 high ADA RECOM ALESSIO D GUIDE LINES FOR HgbA1 C 5.7-6 .4 % predi abeti c <7.0% Reaso nable glyce mell goal for non-p regna nt adult s <8.0 Appro priat e for patie nts with hypog lycem ia or advan maryanne micro /macr o vascu lar compl icati ons Not Available [facility] [address] [place], [address], 07/22/2021 17:33:35 07/22/20 21 07/22/2021 A1C estimated average glucose 168.6 mg/dL 97.0-1 40.0 high Not Available [facility] [address], [place], [address], 07/22/2021 17:33:35 07/22/20 21 07/22/2021 CMP, COMPR EHENS KING METAB OLIC PANEL glucose 115 mg/dL 70-100 high Not Available [facility] [address], [place], [address], 07/22/2021 17:33:36 07/22/20 21 07/22/2021 CMP, COMPR EHENS KING METAB OLIC PANEL BUN 21 mg/dL 7-25 Not Available [facility] [address] [facility] [address] [place], [address], 07/22/2021 17:33:36 07/22/20 21 07/22/2021 CMP, COMPR EHENS KING METAB OLIC PANEL creatinine 1.0 mg/dL 0.6-1. 3 Not Available [facility] [address] [facility] [address], [place], [address], 07/22/2021 17:33:36 07/22/20 21 07/22/2021 CMP, COMPR EHENS KING METAB OLIC PANEL BUN/creatini ne ratio 21.21 calc Not Available [facility] [address], [place], [address], 07/22/2021 17:33:36 07/22/20 21 07/22/2021 CMP, COMPR EHENS KING METAB OLIC PANEL eGFR 98 mL/mi n/1.7 3m2 >60 THREE CONSE CUTIV E VALUE S <60 mL/mi n COULD BE INDIC ATIVE OF KIDNE Y DISEA SE. Not Available [facility] [address] [facility] [address], [place], [address], 07/22/2021 17:33:36 07/22/20 21 07/22/2021 CMP, COMPR EHENS KING METAB OLIC PANEL eGFR non- 81 mL/mi n/1.7 3m2 >60 THREE CONSE CUTIV E VALUE S < 60 mL/mi n COULD BE INDIC ATIVE OF KIDNE Y DISEA SE Not Available [facility] [address], [place], [address], 07/22/2021 17:33:36 07/22/20 21 07/22/2021 CMP, COMPR EHENS KING METAB OLIC PANEL sodium 140 mmol/ L 135-14 5 Not Available [facility] [address], [place], [address], 07/22/2021 17:33:36 07/22/20 21 07/22/2021 CMP, COMPR EHENS KING METAB OLIC PANEL potassium 4.3 mmol/ L 3.5-5. 5 Not Available [facility] [address], [place], [address], 07/22/2021 17:33:36 07/22/20 21 07/22/2021 CMP, COMPR EHENS KING METAB OLIC PANEL chloride 107 mmol/ L 100-11 5 Not Available [facility] [address] [place], [address], 07/22/2021 17:33:36 07/22/20 21 07/22/2021 CMP, COMPR EHENS KING METAB OLIC PANEL CO2 26 mmol/ L 21-33 Not Available [facility] [address], [place], [address], 07/22/2021 17:33:36 07/22/20 21 07/22/2021 CMP, COMPR EHENS KING METAB OLIC PANEL anion gap 6.8 calc Not Available [facility] [address], [place], [address], 07/22/2021 17:33:36 07/22/20 21 07/22/2021 CMP, COMPR EHENS KING METAB OLIC PANEL calcium 9.5 mg/dL 8.8-10 .6 Not Available [facility] [address], [place], [address], 07/22/2021 17:33:36 07/22/20 21 07/22/2021 CMP, COMPR EHENS KING METAB OLIC PANEL total protein 7.0 g/dL 6.2-8. 6 Not Available [facility] [address], [place], [address], 07/22/2021 17:33:36 07/22/20 21 07/22/2021 CMP, COMPR EHENS KING METAB OLIC PANEL albumin 4.2 g/dL 3.5-5. 7 Not Available [facility] [address], [place], [address], 07/22/2021 17:33:36 07/22/20 21 07/22/2021 CMP, COMPR EHENS KING METAB OLIC PANEL globulin 2.8 g/dL 1.3-4. 0 Not Available [facility] [address], [place], [address], 07/22/2021 17:33:36 07/22/20 21 07/22/2021 CMP, COMPR EHENS KING METAB OLIC PANEL A/G ratio 1.5 calc 1.0-2. 8 Not Available [facility] [address], [place], [address], 07/22/2021 17:33:36 07/22/20 21 07/22/2021 CMP, COMPR EHENS KING METAB OLIC PANEL AST (SGOT) 22 U/L 13-39 Not Available [facility] [address] [place], [address], 07/22/2021 17:33:36 07/22/20 21 07/22/2021 CMP, COMPR EHENS KING METAB OLIC PANEL ALT (SGPT) 24 U/L 7-52 Not Available [facility] [address] [place], [address], 07/22/2021 17:33:36 07/22/20 21 07/22/2021 CMP, COMPR EHENS KING METAB OLIC PANEL alkaline phosphatase 97 U/L 20-128 Not Available [facility] [address] [facility] [address], [place], [address], 07/22/2021 17:33:36 07/22/20 21 07/22/2021 CMP, COMPR EHENS KING METAB OLIC PANEL total bilirubin 0.74 mg/dL 0.30-1 .00 Not Available [facility] [address] [facility] [address] [place], [address], 07/22/2021 17:33:36 07/22/20 21 07/22/2021 TSH, THYRO ID STIMU LATIN G HORMO NE TSH II 0.9500 uIU/m L 0.2700 -4.200 0 Not Available [facility] [address] [facility] [address] [place], [address], 07/22/2021 17:33:36 07/22/20 21 07/22/2021 VENIP UNCTU RE results Compl ete Not Available [facility] [address], [place], [address], 07/22/2021 10:50:33 10/21/19 22 10/21/2021 A1C hemoglobin A1C 7.0 % 4.3-5. 6 high ADA RECOM ALESSIO D GUIDE LINES FOR HgbA1 C 5.7-6 .4 % predi abeti c <7.0% Reaso nable glyce mell goal for non-p regna nt adult s <8.0 Appro priat e for patie nts with hypog lycem ia or advan maryanne micro /macr o vascu lar compl icati ons Not Available [facility] [address] [facility] [address] [place], [address], 10/21/2021 15:21:09 10/21/19 22 10/21/2021 A1C estimated average glucose 154.2 mg/dL 97.0-1 40.0 high Not Available [facility] [address] [facility] [address] [place], [address], 10/21/2021 15:21:09 10/21/19 22 10/21/2021 CMP, COMPR EHENS KING METAB OLIC PANEL glucose 149 mg/dL 70-100 high Not Available [facility] [address] [facility] [address] [place], [address], 10/21/2021 15:21:10 10/21/19 22 10/21/2021 CMP, COMPR EHENS KING METAB OLIC PANEL BUN 18 mg/dL 7-25 Not Available [facility] [address] [facility] [address] [place], [address], 10/21/2021 15:21:10 10/21/19 22 10/21/2021 CMP, COMPR EHENS KING METAB OLIC PANEL creatinine 1.0 mg/dL 0.6-1. 3 Not Available [facility] [address] [facility] [address] [place], [address], 10/21/2021 15:21:10 10/21/19 22 10/21/2021 CMP, COMPR EHENS KING METAB OLIC PANEL BUN/creatini ne ratio 17.31 calc Not Available [facility] [address] [facility] [address] [place], [address], 10/21/2021 15:21:10 10/21/19 22 10/21/2021 CMP, COMPR EHENS KING METAB OLIC PANEL eGFR 92 mL/mi n/1.7 3m2 >60 THREE CONSE CUTIV E VALUE S <60 mL/mi n COULD BE INDIC ATIVE OF KIDNE Y DISEA SE. Not Available [facility] [address] [place], [address], 10/21/2021 15:21:10 10/21/19 22 10/21/2021 CMP, COMPR EHENS KING METAB OLIC PANEL eGFR non- 76 mL/mi n/1.7 3m2 >60 THREE CONSE CUTIV E VALUE S < 60 mL/mi n COULD BE INDIC ATIVE OF KIDNE Y DISEA SE Not Available [facility] [address] [place], [address], 10/21/2021 15:21:10 10/21/19 22 10/21/2021 CMP, COMPR EHENS KING METAB OLIC PANEL sodium 142 mmol/ L 135-14 5 Not Available [facility] [address] [place], [address], 10/21/2021 15:21:10 10/21/19 22 10/21/2021 CMP, COMPR EHENS KING METAB OLIC PANEL potassium 4.5 mmol/ L 3.5-5. 5 Not Available [facility] [address] [facility] [address] [place], [address], 10/21/2021 15:21:10 10/21/19 22 10/21/2021 CMP, COMPR EHENS KING METAB OLIC PANEL chloride 102 mmol/ L 100-11 5 Not Available [facility] [address] [facility] [address] [address] [place], [address], 10/21/2021 15:21:10 02/08/20 22 10/21/2021 CMP, COMPR EHENS KING METAB OLIC PANEL CO2 33 mmol/ L 21-33 Not Available [facility] [address], [place], [address], 10/21/2021 15:21:10 10/21/19 22 10/21/2021 CMP, COMPR EHENS KING METAB OLIC PANEL anion gap 7.2 calc Not Available [facility] [address], [place], [address], 10/21/2021 15:21:10 10/21/19 22 10/21/2021 CMP, COMPR EHENS KING METAB OLIC PANEL calcium 9.5 mg/dL 8.8-10 .6 Not Available [facility] [address], [place], [address], 10/21/2021 15:21:10 10/21/19 22 10/21/2021 CMP, COMPR EHENS KING METAB OLIC PANEL total protein 6.7 g/dL 6.2-8. 6 Not Available [facility] [address], [place], [address], 10/21/2021 15:21:10 10/21/19 22 10/21/2021 CMP, COMPR EHENS KING METAB OLIC PANEL albumin 4.3 g/dL 3.5-5. 7 Not Available [facility] [address], [place], [address], 10/21/2021 15:21:10 10/21/19 22 10/21/2021 CMP, COMPR EHENS KING METAB OLIC PANEL globulin 2.4 g/dL 1.3-4. 0 Not Available [facility] [address], [place], [address], 10/21/2021 15:21:10 10/21/19 22 10/21/2021 CMP, COMPR EHENS KING METAB OLIC PANEL A/G ratio 1.8 calc 1.0-2. 8 Not Available [facility] [address], [place], [address], 10/21/2021 15:21:10 10/21/19 22 10/21/2021 CMP, COMPR EHENS KING METAB OLIC PANEL AST (SGOT) 15 U/L 13-39 Not Available [facility] [address], [place], [address], 10/21/2021 15:21:10 10/21/19 22 10/21/2021 CMP, COMPR EHENS KING METAB OLIC PANEL ALT (SGPT) 18 U/L 7-52 Not Available [facility] [address], [place], [address], 10/21/2021 15:21:10 10/21/19 22 10/21/2021 CMP, COMPR EHENS KING METAB OLIC PANEL total bilirubin 0.52 mg/dL 0.30-1 .00 Not Available [facility] [address], [place], [address], 10/21/2021 15:21:10 10/21/19 22 10/21/2021 CMP, COMPR EHENS KING METAB OLIC PANEL alkaline phosphatase 91 U/L 20-128 Not Available [facility] [address], [place], [address], 10/21/2021 15:21:10 10/21/19 22 10/21/2021 VENIP UNCTU RE results Compl ete Not Available [facility] [address], [place], [address], 10/21/2021 12:05:05 01/15/20 22 01/14/2022 A1C hemoglobin A1C 6.9 % 4.3-5. 6 high ADA RECOM ALESSIO D GUIDE LINES FOR HgbA1 C 5.7-6 .4 % predi abeti c <7.0% Reaso nable glyce mell goal for non-p regna nt adult s <8.0 Appro priat e for patie nts with hypog lycem ia or advan maryanne micro /macr o vascu lar compl icati ons Not Available [facility] [address], [place], [address], 01/14/2022 12:30:17 01/15/20 22 01/14/2022 A1C estimated average glucose 151.3 mg/dL 97.0-1 40.0 high Not Available [facility] [address] [place], [address], 01/14/2022 12:30:17 01/15/20 22 01/14/2022 CMP, COMPR EHENS KING METAB OLIC PANEL glucose 132 mg/dL 70-100 high Not Available [facility] [address] [facility] [address] [place], [address], 01/14/2022 12:30:18 01/15/20 22 01/14/2022 CMP, COMPR EHENS KING METAB OLIC PANEL BUN 13 mg/dL 7-25 Not Available [facility] [address] [facility] [address] [place], [address], 01/14/2022 12:30:18 01/15/20 22 01/14/2022 CMP, COMPR EHENS KING METAB OLIC PANEL creatinine 1.0 mg/dL 0.6-1. 3 Not Available [facility] [address], [place], [address], 01/14/2022 12:30:18 01/15/20 22 01/14/2022 CMP, COMPR EHENS KING METAB OLIC PANEL BUN/creatini ne ratio 13.00 calc Not Available [facility] [address], [place], [address], 01/14/2022 12:30:18 01/15/20 22 01/14/2022 CMP, COMPR EHENS KING METAB OLIC PANEL eGFR 96 mL/mi n/1.7 3m2 >60 THREE CONSE CUTIV E VALUE S <60 mL/mi n COULD BE INDIC ATIVE OF KIDNE Y DISEA SE. Not Available [facility] [address], [place], [address], 01/14/2022 12:30:18 01/15/20 22 01/14/2022 CMP, COMPR EHENS KING METAB OLIC PANEL eGFR non- 80 mL/mi n/1.7 3m2 >60 THREE CONSE CUTIV E VALUE S < 60 mL/mi n COULD BE INDIC ATIVE OF KIDNE Y DISEA SE Not Available [facility] [address], [place], [address], 01/14/2022 12:30:18 01/15/20 22 01/14/2022 CMP, COMPR EHENS KING METAB OLIC PANEL sodium 144 mmol/ L 135-14 5 Not Available [facility] [address] [facility] [address] [place], [address], 01/14/2022 12:30:18 01/15/20 22 01/14/2022 CMP, COMPR EHENS KING METAB OLIC PANEL potassium 4.7 mmol/ L 3.5-5. 5 Not Available [facility] [address], [place], [address], 01/14/2022 12:30:18 01/15/20 22 01/14/2022 CMP, COMPR EHENS KING METAB OLIC PANEL chloride 106 mmol/ L 100-11 5 Not Available [facility] [address], [place], [address], 01/14/2022 12:30:18 01/15/20 22 01/14/2022 CMP, COMPR EHENS KING METAB OLIC PANEL CO2 32 mmol/ L 21-33 Not Available [facility] [address], [place], [address], 01/14/2022 12:30:18 01/15/20 22 01/14/2022 CMP, COMPR EHENS [place] METAB OLIC PANEL anion gap 5.7 calc Not Available [facility] [address], [place], [address], 01/14/2022 12:30:18 01/15/20 22 01/14/2022 CMP, COMPR EHENS [place] METAB OLIC PANEL calcium 9.3 mg/dL 8.8-10 .6 Not Available [facility] [address], [place], [address], 01/14/2022 12:30:18 01/15/20 22 01/14/2022 CMP, COMPR EHENS KING METAB OLIC PANEL total protein 6.5 g/dL 6.2-8. 6 Not Available [facility] [address], [place], [address], 01/14/2022 12:30:18 01/15/20 22 01/14/2022 CMP, COMPR EHENS KING METAB OLIC PANEL albumin 3.9 g/dL 3.5-5. 7 Not Available [facility] [address], [place], [address], 01/14/2022 12:30:18 01/15/20 22 01/14/2022 CMP, COMPR EHENS KING METAB OLIC PANEL globulin 2.6 g/dL 1.3-4. 0 Not Available [facility] [address], [place], [address], 01/14/2022 12:30:18 01/15/20 22 01/14/2022 CMP, COMPR EHENS KING METAB OLIC PANEL A/G ratio 1.5 calc 1.0-2. 8 Not Available [facility] [address] [facility] [address], [place], [address], 01/14/2022 12:30:18 01/15/20 22 01/14/2022 CMP, COMPR EHENS KING METAB OLIC PANEL AST (SGOT) 17 U/L 13-39 Not Available [facility] [address] [facility] [address] [place], [address], 01/14/2022 12:30:18 01/15/20 22 01/14/2022 CMP, COMPR EHENS KING METAB OLIC PANEL ALT (SGPT) 18 U/L 7-52 Not Available [facility] [address] [facility] [address], [place], [address], 01/14/2022 12:30:18 01/15/20 22 01/14/2022 CMP, COMPR EHENS KING METAB OLIC PANEL total bilirubin 0.79 mg/dL 0.30-1 .00 Not Available [facility] [address] [facility] [address] [place], [address], 01/14/2022 12:30:18 01/15/20 22 01/14/2022 CMP, COMPR EHENS KING METAB OLIC PANEL alkaline phosphatase 100 U/L 20-128 Not Available [facility] [address] [facility] [address] [place], [address], 01/14/2022 12:30:18 01/15/20 22 01/14/2022 LIPID PANEL W/ CALCU LATED LDL cholesterol 148 mg/dL 20-180 EXPEC MARIAJOSE RESUL TS for ADULT S: Total jana stero l: Risk Class ifica tion: <200 mg/dl Lino able 200-2 39 mg/dl Borde rline high >240 mg/dl High Not Available [facility] [address] [facility] [address], [place], [address], 01/14/2022 12:30:19 01/15/20 22 01/14/2022 LIPID PANEL W/ CALCU LATED LDL triglyceride 173 mg/dL 30-150 high Not Available [facility] [address] [facility] [address], [place], [address], 01/14/2022 12:30:19 01/15/20 22 01/14/2022 LIPID PANEL W/ CALCU LATED LDL HDL cholesterol 44 mg/dL 23-92 Not Available [facility] [address] [facility] [address], [place], [address], 01/14/2022 12:30:19 01/15/20 22 01/14/2022 LIPID PANEL W/ CALCU LATED LDL chol/HDL risk ratio 3 calc <3.5 OPTIM AL Not Available [facility] [address] [facility] [address], [place], [address], 01/14/2022 12:30:19 01/15/20 22 01/14/2022 LIPID PANEL W/ CALCU LATED LDL non-HDL cholesterol 104 mg/dL LINO ABLE IS <130 mg/dl Not Available [facility] [address] [facility] [address], [place], [address], 01/14/2022 12:30:19 01/15/20 22 01/14/2022 LIPID PANEL W/ CALCU LATED LDL LDL-calculat ed 69 mg/dL Not Available [facility] [address] [facility] [address], [place], [address], 01/14/2022 12:30:19 01/15/20 22 01/14/2022 LIPID PANEL W/ CALCU LATED LDL VLDL cholesterol 34.60 mg/dL Not Available [facility] [address] [facility] [address] [place], [address], 01/14/2022 12:30:19 01/15/20 22 01/14/2022 VENIP UNCTU RE results Compl ete Not Available [facility] [address] [facility] [address] [place], [address], 01/14/2022 08:55:37 07/17/20 22 07/17/2022 A1C hemoglobin A1C 7.1 % 4.3-5. 6 high ADA RECOM ALESSIO D GUIDE LINES FOR HgbA1 C 5.7-6 .4 % predi abeti c <7.0% Reaso nable glyce mell goal for non-p regna nt adult s <8.0 Appro priat e for patie nts with hypog lycem ia or advan maryanne micro /macr o vascu lar compl icati ons Not Available [facility] [address] [facility] [address] [place], [address], 07/17/2022 17:41:59 07/17/20 22 07/17/2022 A1C estimated average glucose 157.1 mg/dL 97.0-1 40.0 high Not Available [facility] [address] [facility] [address] [place], [address], 07/17/2022 17:41:59 07/17/20 22 07/17/2022 CMP, COMPR EHENS KING METAB OLIC PANEL glucose 212 mg/dL 70-100 high Not Available [facility] [address] [facility] [address] [place], [address], 07/17/2022 17:42:00 07/17/20 22 07/17/2022 CMP, COMPR EHENS KING METAB OLIC PANEL BUN 16 mg/dL 7-25 Not Available [facility] [address] [facility] [address] [place], [address], 07/17/2022 17:42:00 07/17/20 22 07/17/2022 CMP, COMPR EHENS KING METAB OLIC PANEL creatinine 1.1 mg/dL 0.6-1. 3 Not Available [facility] [address], [place], [address], 07/17/2022 17:42:00 07/17/20 22 07/17/2022 CMP, COMPR EHENS KING METAB OLIC PANEL BUN/creatini ne ratio 14.81 calc Not Available [facility] [address] [facility] [address], [place], [address], 07/17/2022 17:42:00 07/17/20 22 07/17/2022 CMP, COMPR EHENS KING METAB OLIC PANEL eGFR 88 mL/mi n/1.7 3m2 >60 THREE CONSE CUTIV E VALUE S <60 mL/mi n COULD BE INDIC ATIVE OF KIDNE Y DISEA SE. Not Available [facility] [address] [facility] [address], [place], [address], 07/17/2022 17:42:00 07/17/20 22 07/17/2022 CMP, COMPR EHENS KING METAB OLIC PANEL eGFR non- 73 mL/mi n/1.7 3m2 >60 THREE CONSE CUTIV E VALUE S < 60 mL/mi n COULD BE INDIC ATIVE OF KIDNE Y DISEA SE Not Available [facility] [address], [place], [address], 07/17/2022 17:42:00 07/17/20 22 07/17/2022 CMP, COMPR EHENS KING METAB OLIC PANEL sodium 142 mmol/ L 135-14 5 Not Available [facility] [address], [place], [address], 07/17/2022 17:42:00 07/17/20 22 07/17/2022 CMP, COMPR EHENS KING METAB OLIC PANEL potassium 4.1 mmol/ L 3.5-5. 5 Not Available [facility] [address] [facility] [address], [place], [address], 07/17/2022 17:42:00 07/17/20 22 07/17/2022 CMP, COMPR EHENS KING METAB OLIC PANEL chloride 104 mmol/ L 100-11 5 Not Available [facility] [address] [facility] [address], [place], [address], 07/17/2022 17:42:00 07/17/20 22 07/17/2022 CMP, COMPR EHENS KING METAB OLIC PANEL CO2 29 mmol/ L 21-33 Not Available [facility] [address] [facility] [address], [place], [address], 07/17/2022 17:42:00 07/17/20 22 07/17/2022 CMP, COMPR EHENS KING METAB OLIC PANEL anion gap 9.5 calc Not Available [facility] [address] [facility] [address], [place], [address], 07/17/2022 17:42:00 07/17/20 22 07/17/2022 CMP, COMPR EHENS KING METAB OLIC PANEL calcium 9.8 mg/dL 8.8-10 .6 Not Available [facility] [address] [facility] [address], [place], [address], 07/17/2022 17:42:00 07/17/20 22 07/17/2022 CMP, COMPR EHENS KING METAB OLIC PANEL total protein 6.6 g/dL 6.2-8. 6 Not Available [facility] [address] [facility] [address], [place], [address], 07/17/2022 17:42:00 07/17/20 22 07/17/2022 CMP, COMPR EHENS IKNG METAB OLIC PANEL albumin 4.1 g/dL 3.5-5. 7 Not Available [facility] [address] [facility] [address], [place], [address], 07/17/2022 17:42:00 07/17/20 22 07/17/2022 CMP, COMPR EHENS KING METAB OLIC PANEL globulin 2.5 g/dL 1.3-4. 0 Not Available [facility] [address] [facility] [address], [place], [address], 07/17/2022 17:42:00 07/17/20 22 07/17/2022 CMP, COMPR EHENS KING METAB OLIC PANEL A/G ratio 1.7 calc 1.0-2. 8 Not Available [facility] [address] [place], [address], 07/17/2022 17:42:00 07/17/20 22 07/17/2022 CMP, COMPR EHENS KING METAB OLIC PANEL AST (SGOT) 15 U/L 13-39 Not Available [facility] [address], [place], [address], 07/17/2022 17:42:00 07/17/20 22 07/17/2022 CMP, COMPR EHENS KING METAB OLIC PANEL ALT (SGPT) 18 U/L 7-52 Not Available [facility] [address], [place], [address], 07/17/2022 17:42:00 07/17/20 22 07/17/2022 CMP, COMPR EHENS KING METAB OLIC PANEL total bilirubin 0.50 mg/dL 0.30-1 .00 Not Available [facility] [address], [place], [address], 07/17/2022 17:42:00 07/17/20 22 07/17/2022 CMP, COMPR EHENS KING METAB OLIC PANEL alkaline phosphatase 111 U/L 20-128 Not Available [facility] [address] [facility] [address] [place], [address], 07/17/2022 17:42:00 07/17/20 22 07/17/2022 TSH, THYRO ID STIMU LATIN G HORMO NE TSH II 1.3200 uIU/m L 0.2700 -4.200 0 Not Available [facility] [address] [facility] [address] [place], [address], 07/17/2022 17:42:01 07/17/20 22 07/17/2022 MICRO ALBUM IN, RAND( UR/CR EAT) urine albumin 2.8 mg/L No refer ence range estab lishe d Not Available [facility] [address] [facility] [address] [place], [address], 07/17/2022 17:53:46 07/17/20 22 07/17/2022 MICRO ALBUM IN, RAND( UR/CR EAT) urine creatinine 47.8 mg/dL 20.0-3 20.0 Not Available [facility] [address] [facility] [address] [place], [address], 07/17/2022 17:53:46 07/17/20 22 07/17/2022 MICRO ALBUM IN, RAND( UR/CR EAT) AC ratio 0.58 mg/g <30.00 REFER ENCE INTER VALS: The Ameri can [employer] iatio n defin ition of moder ately incre ased urine album in urine spot colle ction (mcg/ mg creat inine ) Amaya l is <30, Moder ately incre ased is 30-22 9, Clini dave album inuri a is >= 300. For diagn ostic purpo ses resul ts shoul d alway s be asses sed in conju ction with the patie nt's medic al histo ry, clini dave exami natio n and other findi ngs. Not Available [facility] [address] [facility] [address], [place], [address], 07/17/2022 17:53:46 07/17/20 22 07/17/2022 VENIP UNCTU RE results Compl ete Not Available [facility] [address] [facility] [address], [place], [address], 07/17/2022 13:47:11 11/13/19 23 11/12/2022 A1C hemoglobin A1C 7.4 % 4.3-5. 6 high ADA RECOM ALESSIO D GUIDE LINES FOR HgbA1 C 5.7-6 .4 % predi abeti c <7.0% Reaso nable glyce mell goal for non-p regna nt adult s <8.0 Appro priat e for patie nts with hypog lycem ia or advan maryanne micro /macr o vascu lar compl icati ons Not Available [facility] [address] [facility] [address], [place], [address], 11/12/2022 13:36:20 11/13/19 23 11/12/2022 A1C estimated average glucose 165.7 mg/dL 97.0-1 40.0 high Not Available [facility] [address] [facility] [address] [place], [address], 11/12/2022 13:36:20 11/13/19 23 11/12/2022 CMP, COMPR EHENS KING METAB OLIC PANEL glucose 197 mg/dL 70-100 high Not Available [facility] [address] [facility] [address], [place], [address], 11/12/2022 13:36:21 11/13/19 23 11/12/2022 CMP, COMPR EHENS KING METAB OLIC PANEL BUN 14 mg/dL 7-25 Not Available [facility] [address] [facility] [address] [place], [address], 11/12/2022 13:36:21 11/13/19 23 11/12/2022 CMP, COMPR EHENS KING METAB OLIC PANEL creatinine 0.9 mg/dL 0.6-1. 3 Not Available [facility] [address], [place], [address], 11/12/2022 13:36:21 11/13/19 23 11/12/2022 CMP, COMPR EHENS KING METAB OLIC PANEL BUN/creatini ne ratio 15.22 calc Not Available [facility] [address], [place], [address], 11/12/2022 13:36:21 11/13/19 23 11/12/2022 CMP, COMPR EHENS KING METAB OLIC PANEL eGFR 106 mL/mi n/1.7 3m2 >60 THREE CONSE CUTIV E VALUE S <60 mL/mi n COULD BE INDIC ATIVE OF KIDNE Y DISEA SE. Not Available [facility] [address], [place], [address], 11/12/2022 13:36:21 11/13/19 23 11/12/2022 CMP, COMPR EHENS KING METAB OLIC PANEL eGFR non- 87 mL/mi n/1.7 3m2 >60 THREE CONSE CUTIV E VALUE S < 60 mL/mi n COULD BE INDIC ATIVE OF KIDNE Y DISEA SE Not Available [facility] [address], [place], [address], 11/12/2022 13:36:21 11/13/19 23 11/12/2022 CMP, COMPR EHENS KING METAB OLIC PANEL sodium 144 mmol/ L 135-14 5 Not Available [facility] [address] [place], [address], 11/12/2022 13:36:21 11/13/19 23 11/12/2022 CMP, COMPR EHENS KING METAB OLIC PANEL potassium 4.6 mmol/ L 3.5-5. 5 Not Available [facility] [address] [facility] [address], [place], [address], 11/12/2022 13:36:21 11/13/19 23 11/12/2022 CMP, COMPR EHENS KING METAB OLIC PANEL chloride 106 mmol/ L 100-11 5 Not Available [facility] [address] [facility] [address], [place], [address], 11/12/2022 13:36:21 11/13/19 23 11/12/2022 CMP, COMPR EHENS KING METAB OLIC PANEL CO2 32 mmol/ L 21-33 Not Available [facility] [address], [place], [address], 11/12/2022 13:36:21 11/13/19 23 11/12/2022 CMP, COMPR EHENS KING METAB OLIC PANEL anion gap 6.5 calc Not Available [facility] [address] [facility] [address], [place], [address], 11/12/2022 13:36:21 11/13/19 23 11/12/2022 CMP, COMPR EHENS KING METAB OLIC PANEL calcium 9.2 mg/dL 8.8-10 .6 Not Available [facility] [address], [place], [address], 11/12/2022 13:36:21 11/13/19 23 11/12/2022 CMP, COMPR EHENS KING METAB OLIC PANEL total protein 6.6 g/dL 6.2-8. 6 Not Available [facility] [address] [facility] [address], [place], [address], 11/12/2022 13:36:21 11/13/19 23 11/12/2022 CMP, COMPR EHENS KING METAB OLIC PANEL albumin 4.0 g/dL 3.5-5. 7 Not Available [facility] [address], [place], [address], 11/12/2022 13:36:21 11/13/19 23 11/12/2022 CMP, COMPR EHENS KING METAB OLIC PANEL globulin 2.6 g/dL 1.3-4. 0 Not Available [facility] [address], [place], [address], 11/12/2022 13:36:21 11/13/19 23 11/12/2022 CMP, COMPR EHENS KING METAB OLIC PANEL A/G ratio 1.5 calc 1.0-2. 8 Not Available [facility] [address], [place], [address], 11/12/2022 13:36:21 11/13/19 23 11/12/2022 CMP, COMPR EHENS KING METAB OLIC PANEL AST (SGOT) 17 U/L 13-39 Not Available [facility] [address], [place], [address], 11/12/2022 13:36:21 11/13/19 23 11/12/2022 CMP, COMPR EHENS KING METAB OLIC PANEL ALT (SGPT) 19 U/L 7-52 Not Available [facility] [address], [place], [address], 11/12/2022 13:36:21 11/13/19 23 11/12/2022 CMP, COMPR EHENS KING METAB OLIC PANEL total bilirubin 0.67 mg/dL 0.30-1 .00 Not Available [facility] [address], [place], [address], 11/12/2022 13:36:21 11/13/19 23 11/12/2022 CMP, COMPR EHENS KING METAB OLIC PANEL alkaline phosphatase 93 U/L 20-128 Not Available [facility] [address] [facility] [address] [place], [address], 11/12/2022 13:36:21 11/13/19 23 11/12/2022 LIPID PANEL W/ CALCU LATED LDL cholesterol 122 mg/dL 20-180 EXPEC MARIJAOSE RESUL TS for ADULT S: Total jana stero l: Risk Class ifica tion: <200 mg/dl Lino able 200-2 39 mg/dl Borde rline high >240 mg/dl High Not Available [facility] [address] [facility] [address] [place], [address], 11/12/2022 13:36:23 11/13/19 23 11/12/2022 LIPID PANEL W/ CALCU LATED LDL triglyceride 205 mg/dL 30-150 high Not Available [facility] [address] [facility] [address] [place], [address], 11/12/2022 13:36:23 11/13/19 23 11/12/2022 LIPID PANEL W/ CALCU LATED LDL HDL cholesterol 37 mg/dL 23-92 Not Available [facility] [address] [facility] [address] [place], [address], 11/12/2022 13:36:23 11/13/19 23 11/12/2022 LIPID PANEL W/ CALCU LATED LDL chol/HDL risk ratio 3 calc <3.5 OPTIM AL Not Available [facility] [address] [facility] [address] [place], [address], 11/12/2022 13:36:23 11/13/19 23 11/12/2022 LIPID PANEL W/ CALCU LATED LDL non-HDL cholesterol 85 mg/dL LINO ABLE IS <130 mg/dl Not Available [facility] [address] [facility] [address], [place], [address], 11/12/2022 13:36:23 11/13/19 23 11/12/2022 LIPID PANEL W/ CALCU LATED LDL VLDL cholesterol 41.00 mg/dL Not Available [facility] [address], [place], [address], 11/12/2022 13:36:23 11/13/19 23 11/12/2022 LIPID PANEL W/ CALCU LATED LDL LDL calculated 44 mg/dL 0-99 Not Available [facility] [address] [facility] [address], [place], [address], 11/12/2022 13:36:23 11/13/19 23 11/12/2022 VENIP UNCTU RE results Compl ete Not Available [facility] [address] [facility] [address], [place], [address], 11/12/2022 11:13:13 Result Notes None recorded. Problems Name Problem SNOMED Code Status Onset Date Resolution Date Notes Provider Name and Address Organization Details Recorded Time Uncontrolle d type 2 diabetes mellitus 666136701 Active 2019 Sebastian Long MD [address], [place], [address], [facility], [facility] 0 09:01:47 Peripheral neuropathy due to type 2 diabetes mellitus 6223606895299 Active 2019 MD [address]i [address], [place], [address], [facility], [employer] 0 09:01:48 Essential hypertensio n [id number] Active 2019 MD Jacki Quintanilla [address], [place], [address], [facility] - [facility], [facility] 0 09:01:49 Mixed hyperlipide ang 700941059 Active 2019 Sebastian Long MD [address], [place], [address], [facility], [facility] 0 09:01:51 Problem Notes None recorded. Procedures Surgical History Date Name Laterality Status Provider Name and Address Organization Details Recorded Time 0 lobectomy of lung completed Sebastian Long MD [address], [place], [address], [facility] 09/03/2020 15:58:[address] [facility] 02/21/2020 08:10:[address] [facility] 02/21/2020 08:10:37 Imaging Results None recorded. Procedure Notes None recorded. Medical Equipment None Reported. Allergies Allergen ID Allergen Name Allergen Category Reaction Reaction Severity Criticality Documentation Date Start Date Code Code System Note Provider Name and Address Organization Details Recorded Time [id number] neomycin / polymyxin B / pramoxine medicatio n rash severe Not available 02/21/2020 [id number] [facility] 0 08:21:55 Medications Name Sig Start Date Stop Date Status Note LastModified by Organization Details LastModified Time atorvastati n 40 mg tablet TAKE 1 TABLET BY MOUTH DAILY active Not Available Not Available No t Available metformin 500 mg tablet 500 mg PO every morning, 250 mg PO every evening 09/03 completed Not Available Not Available Not Available carvedilol 6.25 mg tablet TAKE ONE TABLET BY MOUTH TWICE A DAY active Not Available Not Available No t Available atorvastati n 20 mg tablet Take 1 tablet every day by oral route. 07/22 completed Not Available Not Available Not Available carvedilol 12.5 mg tablet 02/20 completed Not Available Not Available Not Available azithromyci n 250 mg tablet 02/20 completed Not Available Not Available Not Available levetiracet am 500 mg tablet 02/20 completed Not Available Not Available Not Available glipizide ER 10 mg tablet, extended release 24 hr TAKE ONE TABLET BY MOUTH ONE TIME DAILY 02/20 completed Not Available Not Available Not Available glipizide 10 mg tablet 1 tablet PO every evening with supper 09/03 completed Not Available Not Available Not Available sertraline 100 mg tablet TAKE ONE TABLET BY MOUTH ONE TIME DAILY active Not Available Not Available No t Available hydrocodone 10 mg-acetamin ophen 325 mg tablet 01/20 completed Not Available Not Available Not Available carvedilol 3.125 mg tablet TAKE ONE TABLET BY MOUTH TWICE A DAY 02/20 completed Not Available Not Available Not Available ofloxacin 0.3 % ear drops 02/20 completed Not Available Not Available Not Available amlodipine 10 mg tablet TAKE ONE TABLET BY MOUTH ONE TIME DAILY active Not Available Not Available No t Available rizatriptan 10 mg disintegrat ing tablet PLACE ONE TABLET BY MOUTH THREE TIMES A DAY NEEDED FOR HEADACHE active Not Available Not Available No t Available hydrochloro thiazide 12.5 mg capsule TAKE ONE CAPSULE BY MOUTH TWICE A DAY 07/23 completed Not Available Not Available Not Available methylpredn isolone 4 mg tablets in a dose pack 02/20 completed Not Available Not Available Not Available lisinopril 40 mg tablet TAKE ONE TABLET BY MOUTH ONE TIME DAILY active Not Available Not Available No t Available metformin ER 500 mg tablet,exte nded release 24 hr active Not Available Not Available Not Available amoxicillin 500 mg-potassiu m clavulanate 125 mg tablet 02/20 completed Not Available Not Available Not Available FreeStyle Lite Strips DX E11.65, Use one strip to test blood glucose levels four times a day. 2019 active Not Available Not Available Not Avai lable butalbital- acetaminoph en-caffeine 50 mg-300 mg-40 mg capsule TAKE ONE CAPSULE BY MOUTH EVERY 4 HOURS NEEDED FOR HEADACHE FOR 3 DAYS 02/20 completed Not Available Not Available Not Available Jardiance 10 mg tablet 1 tablet PO every morning 09/03 completed Not Available Not Available Not Available Jardiance 25 mg tablet TAKE 1 TABLET BY MOUTH EVERY MORNING active Not Available Not Available No t Available Tresiba FlexTouch U-200 insulin 200 unit/mL (3 mL) subcutaneou s pen 64 units sq daily 2022 active Not Available Not Available Not Avai lable Tresiba FlexTouch U-100 insulin 100 unit/mL (3 mL) subcutaneou s pen ADMINISTE R 16 UNITS UNDER THE SKIN DAILY AT BEDTIME active Not Available Not Available No t Available Ozempic 0.25 mg or 0.5 mg (2 mg/1.5 mL) subcutaneou s pen injector 0.5 mg sq once a week 07/22 completed Not Available Not Available Not Available FreeStyle Lissette 14 Day [place] 10/21 completed Not Available Not Available Not Available BD Vanda 2nd Gen Pen Needle 32 gauge x 5/32 USE ONCE FOR INJECTION DAILY active Not Available Not Available No t Available FreeStyle Lissette 2 Sensor kit USE 1 SENSOR EVERY 14 DAYS 2020 active Not Available Not Available Not Avai lable Ozempic 1 mg/dose (4 mg/3 mL) subcutaneou s pen injector INJECT 1MG UNDER SKIN ONCE A WEEK 2022 active Not Available Not Available Not Avai lable Ozempic 2 mg/dose (8 mg/3 mL) subcutaneou s pen injector Inject by subcutane ous route for 30 days. 07/23 completed Not Available Not Available Not Available Vitals Date Recorded Respiratory rate Body height Body mass index (BMI) Body weight Body temperature Oxygen saturation Heart rate Systolic And Diastolic Provider Name and Address Organization Details Last Updated DateTime 2 15 /min 177.8 cm 36.2 kg/m2 696861. 71 g 97.4 [degF] 95 % 73 /min 104/80 mm[Hg] [facility] 2 10:39:15 Date Recorded Body height Respiratory rate Body mass index (BMI) Body weight Body temperature Heart rate Oxygen saturation Systolic And Diastolic Provider Name and Address Organization Details Last Updated DateTime 3 177.8 cm 15 /min 36.1 kg/m2 176155. 84 g 96.9 [degF] 70 /min 95 % 110/70 mm[Hg] [facility], [facility] 3 13:08:11 Date Recorded Body height Respiratory rate Body mass index (BMI) Body weight Body temperature Heart rate Oxygen saturation Systolic And Diastolic Provider Name and Address Organization Details Last Updated DateTime 2 177.8 cm 15 /min 36.4 kg/m2 280963. 03 g 97.1 [degF] 70 /min 98 % 114/80 mm[Hg] [facility], [facility] 2 10:46:15 Date Recorded Body height Body mass index (BMI) Body weight Respiratory rate Oxygen saturation Heart rate Body temperature Systolic And Diastolic Provider Name and Address Organization Details Last Updated DateTime 1 177.8 cm 36.3 kg/m2 268596. 87 g 14 /min 96 % 82 /min 96.8 [degF] 110/80 mm[Hg] [facility], [facility] 1 10:09:52 Date Recorded Body height Respiratory rate Body mass index (BMI) Body weight Oxygen saturation Heart rate Body temperature Systolic And Diastolic Provider Name and Address Organization Details Last Updated DateTime 2 177.8 cm 15 /min 35.6 kg/m2 766636. 99 g 96 % 62 /min 96.2 [degF] 120/80 mm[Hg] [facility], [facility] 2 13:07:49 Social History Question Answer Notes LastModified by [employer] ion Details LastModified Time Tobacco Smoking Status Current Every Day Smoker smoked a few times while in located within [facility]. [facility], [facility] 11/19/2022 13:08:39 Alcohol Use 1-2 Per Day Information not available 02/21/2020 Marital Status Single Informatio n not available 07/22/2021 What Was The Date Of Your Most Recent Tobacco Screening? 11/19/2022 Information not available 11/19/2022 What Is Your Relationship Status? Single Information not available 07/22/2021 How Much Tobacco Do You Smoke? No Information not available 09/24/2020 How Many Years Have You Smoked Tobacco? 40 Information not available 09/24/2020 Sex: Unknown Functional Status Question Answer Note LastModified by Organizat ion Details LastModified Time Do you or have you ever used any other forms of tobacco or nicotine? Yes Information not available 10/21/2021 What is your level of alcohol consumption? 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 Family History Relationship Description Onset Age of this Age Resolved Age Notes LastModified by Organization Details LastModified Time Maternal Grandmother Congestive heart failure landersch Not available 2019 08:10:36 Mother Congestive heart failure landersch Not available 2019 08:10:36 Mother Arthritis landersch Not availab le 02/21/2020 08:10:36 Mother Diabetes mellitus Not available 02/11 08:45:18 Father Arthritis landersch Not availab le 02/21/2020 08:10:36 Father Aneurysm of cerebral artery [email or web address] Not available 2020 09:56:59 Brother Aneurysm of cerebral artery API-27 Not available 2020 09:56:59 Sister Aneurysm of cerebral artery API-27 Not available 2020 09:56:59 Medical History Condition Response Cancer (location) Y Other N Gout N Thyroid Disease N Kidney Stones Y Measles/Mumps N Emphysema/COPD N Sexually Transmitted Disease N Depression Y Prostate Problems N Vascular Disease N Rash/Skin Condition N Amputation (location) N Parkinson's N Paralysis N Headaches/Migraines N Cardiac Pacemaker/defibrillator N Nerve Damage / Neuropathy N Arthritis N Sleep disorder/Insomnia N Infertility N Heart disease / Heart Attack N Crohn's Disease N HIV/AIDS N Stroke/TIA N Colon Problems N High Cholesterol Y Serious Injuries Y Kidney Disease N Memory Loss/Alzheimer's N Gallbladder disease N High blood pressure Y Congestive heart failure N Falls N Alcohol Overuse N Blood Thinner Treatment N Hormone Replacement N Nervous Breakdown N Horner's Esophagus N Anemia N Urinary Problems N Colon Polyps N Gastritis N Hospitalizations (other than operations) Y Back pain Y Diabetes Y Rheumatic Fever N Bleeding Disorder N Cardiac Arrhythmias /irregular heart rat e N Osteopenia/Osteoporosis N Anxiety/Stress N Asthma N Vision Problems N Erectile / Sexual Dysfunction N Ostomies (location) N Seizures N Jaundice N Sleep Apnea N Hepatitis N Past Reacton to [employer] N Cirrhosis N GERD/Ulcer N Chicken Pox N Allergies (other than meds) N Immunizations Vaccine Type Date Status Note Provider Nam e and Address Organization Details Recorded Time COVID-19, mRNA, LNP-S, PF, 100 mcg/0.5mL dose or 50 mcg/0.25mL dose 11/21/2020 completed Dane christiansen [facility] 01/14/2021 13:10:14 COVID-19, mRNA, LNP-S, PF, 100 mcg/0.5mL dose or 50 mcg/0.25mL dose 12/19/2020 completed Dane christiansen [facility] 01/14/2021 13:10:14 Tdap 11/17/2021 completed Dane christiansen [facility] 01/20/2022 10:39:36 Past Encounters Encounter ID Performer Location Encounter Start Date Encounter Closed Date Diagnosis/Indication Diagnosis SNOMED-CT Code Diagnosis ICD10 Code Diagnosis IMO Codes Diagnosis Note [id number] MD ANNIKA Quintanilla [facility] [address] [place] [address] 02/21/2020 08:02:49 02/21/2020 10:59:35 Uncontrolled type 2 diabetes mellitus 728031083 E11.65 Chronic, uncontroll ed Get CMP, Hemoglobin A1c, microalbum in today Increase metformin to 500 mg twice a day Decrease glipizide to 10 mg in the morning only. Add on Jardiance 10 mg daily. Keep carbohydra te intake at 160 g or less daily. Check blood sugar at least twice a day. Bring in meter for download in 2 weeks. Return in 2 months. Essential hypertension 53931726 I10 Chronic, controlled Continue HCTZ 12.5 mg twice a day, lisinopril 40 mg daily, amlodipine 10 mg daily, carvedilol 6.25 mg twice a day. Peripheral neuropathy due to type 2 diabetes mellitus 2476950265 107 E11.42 Chronic, uncontroll ed We may be able to prevent progressio n with better glucose control Mixed hyperlipidemia 267 023446 E78.2 Chronic, uncontroll ed Increase atorvastat in to 20 mg daily. [id number] MD ANNIKA Quintanilla [address] [place] [address] 09/03/2020 14:01:31 09/04/2020 08:32:09 Uncontrolled type 2 diabetes mellitus 050760902 E11.65 Chronic, uncontroll edHe will not restart metformin or glipizide. He will continue Jardiance 25 mg daily He will start Tresiba 16 units at bedtime.Ev roz 4 days, he can increase his dose of Tresiba by 4 units until his fasting blood sugar is at 120 or lower consistent ly. He had given his mother insulin injections in the past and he is familiar with the process. He will continue using his Freestyle lissette between 4 and 6 times a day. Sometime the next few days, he will need a CMP and a Hemoglobin A1c done at a [facility] in [facility] t He will return in 3 weeks Peripheral neuropathy due to type 2 diabetes mellitus [id number] 107 E11.42 Chronic, uncontroll ed We may be able to prevent progressio n with better glucose control Essential hypertension 80162230 I10 Chronic, unknown degree of control Continue HCTZ 12.5 mg twice a day, lisinopril 40 mg daily, amlodipine 10 mg daily, carvedilol 6.25 mg twice a day. Mixed hyperlipidemia 267 171611 E78.2 Chronic, uncontroll ed We will get a fasting lipid profile along with his other labs this week. For now he will continue atorvastat in 20 mg daily. [id number] Sebastian Long MD [facility] [address] [place] [address] 09/24/2020 08:24:27 09/24/2020 09:13:09 Uncontrolled type 2 diabetes mellitus 604746797 E11.65 Chronic, uncontroll ed, improving Increase Tresiba to 32 units at bedtime. If fasting sugar is not yet at 120 or lower in 4 days, he will continue to increase his dose of Tresiba by 4 units every 4 days. Continue Jardiance 25 mg daily. He will continue using Freestyle lissette every day. Just before his next visit, he will need a CMP, a Hemoglobin A1c. Return in 3 months. Peripheral neuropathy due to type 2 diabetes mellitus [id number] 107 E11.42 Chronic, improving We may be able to prevent progressio n with better glucose control Essential hypertension 15557535 I10 Chronic, well controlled Continue HCTZ 12.5 mg twice a day, lisinopril 40 mg daily, amlodipine 10 mg daily, carvedilol 6.25 mg twice a day. Mixed hyperlipidemia 267 223511 E78.2 Chronic, uncontroll edIncrease atorvastat in to 40 mg daily. With better glucose control, we can expect his triglyceri ra to improve.Ge t lipid profile before next visit [id number] MD ANNIKA Quintanilla [facility] [address] [place] [address] 01/14/2021 12:57:02 01/14/2021 13:50:26 Uncontrolled type 2 diabetes mellitus 088496712 E11.65 Chronic, uncontroll ed, improvingI ncrease Tresiba to 46 units at bedtime Continue Jardiance 25 mg every morning Start Ozempic 0.25 mg once a week for 4 weeks then 0.5 mg once a week. We discussed reports of thyroid cancer in rodents exposed to high dose liraglutid e and the possibilit y of experienci ng pancreatit is on a GLP-1 agent. We went over gastrointe stinal discomfort and diarrhea that can occur during the first weeks of GLP-1 therapy. If the patient does not feel like eating, there is no need to have a full meal while continuing to take a GLP-1 agent. Continue using Freestyle lissette at least 4 times a day. Return in 2 months Peripheral neuropathy due to type 2 diabetes mellitus 9857201828 107 E11.42 Chronic, improving We may be able to prevent progressio n with better glucose control Mixed hyperlipidemia 267 646494 E78.2 Chronic, uncontroll ed, improving Continue atorvastat in 40 mg daily. We can get another lipid profile when his glucose control improves. If his triglyceri ra are still over 150 with better glucose control, we will add on Vascepa to atorvastat in 40 mg daily Essential hypertension 10441667 I10 Chronic, well controlled Continue HCTZ 12.5 mg twice a day, lisinopril 40 mg daily, amlodipine 10 mg daily, carvedilol 6.25 mg twice a day. [id number] MD ANNIKA Quintanilla [address] [place] [address] 07/22/2021 09:56:57 07/22/2021 10:33:30 Uncontrolled type 2 diabetes mellitus 779089662 E11.65 Chronic, uncontroll edToday we will need a CMP, a Hemoglobin A1c, a microalbum inIncrease Tresiba to 50 units daily.Incr ease Ozempic to 1 mg once a week.Rachele nue Jardiance 25 mg daily.Cont inue using Freestyle Lissette at least 4 times a day. Before his next visit, we will need another CMP and a Hemoglobin H9eLikwuj in 2 months Peripheral neuropathy due to type 2 diabetes mellitus 3500475410 107 E11.42 Chronic, improving We may be able to prevent progressio n with better glucose control Mixed hyperlipidemia 267 076994 E78.2 Chronic, uncontroll ed, improvingC ontinue atorvastat in 40 mg daily.Bett er glucose control might allow his triglyceri ra to improveJus t before his next visit, we will get a fasting lipid profile. We will get this ordered after we get back his labs from today. Essential hypertension 64235178 I10 Chronic, well controlled Continue HCTZ 12.5 mg twice a day, lisinopril 40 mg daily, amlodipine 10 mg daily, carvedilol 6.25 mg twice a day. Because he has had a partial thyroidect jeff, we should get a TSH today [id number] Sebastian Long MD [facility] [address] [place] [address] 10/21/2021 10:32:55 10/21/2021 13:18:23 Uncontrolled type 2 diabetes mellitus 806788367 E11.65 Chronic, uncontroll ed, improvingT nancie we will need a CMP, a Hemoglobin Q6xSelqulb e Tresiba to 56 units daily..If his fasting sugar is not get close to 100 in a week, he should increase Tresiba to 60 units.Cont inue Ozempic 1 mg once a week, Jardiance 25 mg dailyConti nue using Freestyle Lissette at least 4 times a day.Before his next visit, we will need another CMP and a Hemoglobin A1c. We will order this after we get back his labs from todayJalen n in 3 months Peripheral neuropathy due to type 2 diabetes mellitus [id number] 107 E11.42 Chronic, improving We may be able to prevent progressio n with better glucose control Mixed hyperlipidemia 267 142743 E78.2 Chronic, uncontroll ed, improvingC ontinue atorvastat in 40 mg daily.Bett er glucose control might allow his triglyceri ra to improveJus t before his next visit, we will get a fasting lipid profile. We will get this ordered after we get back his labs from today. Essential hypertension 07019940 I10 Chronic, well controlled Continue HCTZ 12.5 mg twice a day, lisinopril 40 mg daily, amlodipine 10 mg daily, carvedilol 6.25 mg twice a day. [id number] MD ANNIKA Quintanilla [facility] [address] [place] [address] 01/20/2022 10:35:46 01/20/2022 15:36:15 Uncontrolled type 2 diabetes mellitus 372821182 E11.65 Chronic, uncontroll ed, improvingT resiba 56 units daily..Jar diance 25 mg dailyIncre ase Ozempic to 2 mg once a weekIf fasting blood sugar falls below 100 on the higher dose of Ozempic, decrease Tresiba to 46 units daily.Star t using Freestyle Lissette at least 4 times a day when he gets his sensorsBef ore his next visit, we will need a CMP, a hemoglobin A1c , a microalbum inHe will get an eye exam in [facility] in April 2022We will see him at the end of June 2022 when he returns from [facility] Peripheral neuropathy due to type 2 diabetes mellitus [id number] 107 E11.42 Chronic, improving We might be able to prevent progressio n with better glucose control Mixed hyperlipidemia 267 782172 E78.2 Chronic, uncontroll ed, improvingC ontinue atorvastat in 40 mg daily. Essential hypertension 82065305 I10 Chronic, well controlled Continue HCTZ 12.5 mg twice a day, lisinopril 40 mg daily, amlodipine 10 mg daily, carvedilol 6.25 mg twice a day.Will get a TSH before his next visit [id number] MD ANNIKA Quintanilla [facility] [address] [place] [address] 07/23/2022 13:02:21 07/23/2022 19:40:03 Uncontrolled type 2 diabetes mellitus 799126088 E11.65 Chronic, uncontroll ed, improvingT resiba 56 units daily..Jar diance 25 mg dailyOzemp ic 1 mg once a weekUse Freestyle lissette 4 times a day.Before his next visit, we will need a CMP, a hemoglobin A1cHe will get us a copy of his eye exam from [facility] done [place] in December 2022 before he goes back to [facility] Peripheral neuropathy due to type 2 diabetes mellitus 2024484294 107 E11.42 Chronic, improving We might be able to prevent progressio n with better glucose control Mixed hyperlipidemia 267 309375 E78.2 Chronic, uncontroll ed, improvingC ontinue atorvastat in 40 mg daily. Essential hypertension 45948653 I10 Chronic, well controlled Continue lisinopril 40 mg daily, amlodipine 10 mg daily, carvedilol 6.25 mg twice a day. [id number] MD ANNIKA Quintanilla [facility] [address] [place] [address] 11/19/2022 13:03:38 11/19/2022 15:48:49 Uncontrolled type 2 diabetes mellitus 115395205 E11.65 Chronic, uncontroll ed, worseningT resiba 64 units daily..Jar diance 25 mg dailyOzemp ic 1 mg once a weekUse Freestyle Lissette 4 times a day.He does get an eye exam in [facility] in Mayefore his next visit, we will need a CMP, a hemoglobin A1c, a microalbum inWe will see him in July 2023 after he returns from [facility] Peripheral neuropathy due to type 2 diabetes mellitus 4436012114 107 E11.42 Chronic, improving We might be able to prevent progressio n with better glucose control Mixed hyperlipidemia 267 423696 E78.2 Chronic, uncontroll ed, improvingC ontinue atorvastat in 40 mg daily. Essential hypertension 67621341 I10 Chronic, well controlled Continue lisinopril 40 mg daily, amlodipine 10 mg daily, carvedilol 6.25 mg twice a day. Get a TSH just before his next visit Health Concerns Section Related Observation LastModified by Organization Blake gipson LastModified Time None Recorded Concern Status LastModified by Organization Details LastModified Time None Recorded Advance Directives Directive None Recorded Payers Insurance Date Sequence Insurance Name Policy Number Policy Bowman Covered Member ID Bowman Member ID Guarantor Name 12/18/2024 1 [employer] (PPO) [id number] Nate Redmond [id number] Nate Redmond 07/17/2021 1 [place] [id number] Nate Redmond [id number] Nate Redmond 09/19/2020 1 [place] [id number] Nate Redmond [id number] Nate Redmond Notes Date Note Type Note Provider Name and Address Organization Details Recorded Time 07/22/2021 text/html CORONAVIRUS SCREENING TOOL Are you experiencing any NEW symptom(s) listed below that is not due to another health problem None of the below Is anyone else in your household experiencing any NEW symptoms No In the past 2 weeks did you have close contact (within 6 feet for at least 15 minutes) with someone with symptoms of COVID-19 or who tested positive for COVID-19 No In the past 2 weeks have you been tested for COVID-19 No, I have not been tested Why did you get tested? Please select all that apply N/A In the past 2 weeks has someone in your household tested positive for COVID-19 No How many doses have you received? 3 doses Imported from [employer] on 07/22/2021 Diabetes mellitus was diagnosed around 2014. Left upper lobectomy was performed for lung cancer late in 2019 and he is not going to get chemotherapy for this. He is on Tresiba 32 units daily, Jardiance 25 mg daily. Hemoglobin A1c was 8.9% on 12/18/2020, this was 9.3% on 09/04/2020. When we first saw him, he was on metformin 500 mg once a day, glipizide 10 mg twice a day. He could not tolerate metformin at any dose. He is no longer on glipizide. Currently he is taking Tresiba 44 units once a day, Ozempic 0.5 mg once a week, Jardiance 25 mg daily. Average blood sugar is 173, he is at target glucose 60% of the time, high 35%, very high 5%. Fasting sugar is 179. By noon his blood sugar is 198. At supper his blood sugar is 163 and by bedtime his blood sugar is 189. His previous morning blood sugar has been 220 and this was getting to 300 in the middle of the day. Glucose was 239, creatinine was 0.94, GFR was 85, potassium was 5.3 on 12/18/2020 Blood pressure control is good on HCTZ 12.5 mg twice a day, lisinopril 40 mg daily, amlodipine 10 mg daily, carvedilol 6.25 mg twice a day. Microalbumin was 6 on 02/21/2020. 10 years ago he had a partial left nephrectomy for renal cell carcinoma. Several years ago, he had part of his thyroid removed. Pathology was said to be benign. He is not on any medication for his thyroid. TSH was 1.71 on 12/01/2019. Total cholesterol was 189, triglycerides were 332, HDL was 52, LDL was 93 on 12/18/2020. He is on atorvastatin 40 mg daily. His previous total cholesterol was 181, triglycerides were 505, HDL was 41, LDL was 101 on 09/04/2020. He remains on sertraline 100 mg daily for depression. He has been taking this for the last 15 years His feet have not been hurting, but earlier this year, he felt like he was walking on wet carpet with the front part of his left foot. This has since gone away.. Dilated eye exam was performed in April 2021 and he had no retinopathy. Meter download /Freestyle libreAVG BG 173 +/- 24.5. BG range 100-280 60% In target range (70-180)35% High (>180)5% Serious High (>250)____% Low (<70)____% Serious Low (<54) Fasting 178Pre-lunch 198Pre-dinner 163Bed 189 Hypoglycemic events (BG <70)none Sebastian Long MD [address] [address], [place], [address], [facility], [facility] 07/22/2021 10:52:11 10/21/2021 text/html CORONAVIRUS SCREENING TOOL Are you experiencing any NEW symptom(s) listed below that is not due to another health problem None of the below Is anyone else in your household experiencing any NEW symptoms No In the past 2 weeks did you have close contact (within 6 feet for at least 15 minutes) with someone with symptoms of COVID-19 or who tested positive for COVID-19 No In the past 2 weeks have you been tested for COVID-19 No, I have not been tested Why did you get tested? Please select all that apply N/A In the past 2 weeks has someone in your household tested positive for COVID-19 No Imported from [facility] on 10/21/2021 Diabetes mellitus was diagnosed around 2014. Left upper lobectomy was performed for lung cancer late in 2019 and he is not going to get chemotherapy for this. Hemoglobin A1c was 7.5% on 07/22/2021, this was 8.9% on 12/18/2020. When we first saw him, he was on metformin 500 mg once a day, glipizide 10 mg twice a day. He could not tolerate metformin at any dose. He is no longer on glipizide. He is now on Tresiba 50 units daily, Ozempic 1.0 mg once a week, Jardiance 25 mg daily. Average blood sugar is 153, time in range is 81%, high 18%, very high 1%. Fasting sugar is 151, by noon his blood sugar is 176. At supper his blood sugar is 152 and by bedtime his blood sugar is 150. His previous average blood sugar was 173, he was at target glucose 60% of the time, high 35%, very high 5%. Fasting sugar was 179. By noon his blood sugar was 198. At supper his blood sugar was as 163 and by bedtime his blood sugar was 189. Glucose was 115, creatinine was 1.0, GFR was 81, potassium was 4.3, calcium was 9.5, AST was 22, ALT was 24 on 07/22/2021 Blood pressure control is good on HCTZ 12.5 mg twice a day, lisinopril 40 mg daily, amlodipine 10 mg daily, carvedilol 6.25 mg twice a day. Microalbumin was 13.66 on 07/22/2021. In 2010, he had a partial left nephrectomy for renal cell carcinoma. Several years ago, he had part of his thyroid removed. Pathology was said to be benign. He has never taken any medication for his thyroid. TSH was 0.95 on 07/22/2021, this was 1.71 on 12/01/2019. Total cholesterol was 189, triglycerides were 332, HDL was 52, LDL was 93 on 12/18/2020. He is on atorvastatin 40 mg daily. His previous total cholesterol was 181, triglycerides were 505, HDL was 41, LDL was 101 on 09/04/2020. He remains on sertraline 100 mg daily for depression. He has been taking this since 2005. His feet have not been hurting, but early in 2020 he felt like he was walking on wet carpet with the front part of his left foot. This has since gone away.. Dilated eye exam was performed in April 2021 and he had no retinopathy. Sebastian Long MD [address] [address], [place], [address], [facility], [facility] 10/21/2021 23:40:06 01/20/2022 text/html QUALITY MEASURE QUESTIONNAIRE When did the Patient complete the annual diabetic eye exam 04/27/2021 Imported from [employer] on 01/20/2022 Diabetes mellitus was diagnosed around 2014. Left upper lobectomy was performed for lung cancer late in 2019 and he is not going to get chemotherapy for this. Hemoglobin A1c was 6.9% on 01/14/2022, this was 7.5% on 07/22/2021 When we first saw him, he was on metformin 500 mg once a day, glipizide 10 mg twice a day. He could not tolerate metformin at any dose. He is now on Tresiba 56 units daily, Ozempic 1.0 mg once a week, Jardiance 25 mg daily. It has been 2 months he checked his blood sugar with a Lissette because he has no sensors. Fingerstick sugar was 133 in the morning 3 days ago. His previous average blood sugar was 153, time in range was 81%, high 18%, very high 1%. Fasting sugar was 151, by noon his blood sugar was 176. At supper his blood sugar was 152 and by bedtime his blood sugar was 150. Glucose was 132, creatinine was 1.0, GFR was 80, potassium was 4.7, calcium was 9.3, AST was 17, ALT was 18 on 01/14/2022. Blood pressure control is good on HCTZ 12.5 mg twice a day, lisinopril 40 mg daily, amlodipine 10 mg daily, carvedilol 6.25 mg twice a day. Microalbumin was 13.66 on 07/22/2021.In 2010, he had a partial left nephrectomy for renal cell carcinoma. Several years ago, he had part of his thyroid removed. Pathology was said to be benign. He has never taken any medication for his thyroid. TSH was 0.95 on 07/22/2021, this was 1.71 on 12/01/2019. Total cholesterol was 148, triglycerides were 173, HDL was 44, LDL was 69 on 01/14/2022. He has had no muscle pain on atorvastatin 40 mg daily. His previous total cholesterol was 189, triglycerides were 332, HDL was 52, LDL was 93 on 12/18/2020. He remains on sertraline 100 mg daily for depression. He has been taking this since 2005.His feet have not been hurting, no longer feels like he is walking on wet carpet with the front part of his left foot. Dilated eye exam was performed in April 2021 and he had no retinopathy. Sebastian Long MD [address] [address], [place], [address], [facility] - [facility], [facility] 01/20/2022 11:13:19 07/23/2022 text/html Diabetes mellitus was diagnosed around 2014. Left upper lobectomy was performed for lung cancer late in 2019 and he did not need chemotherapy for this. Hemoglobin A1c was 7.1% on 07/17/2022, this was 6.9% on 01/14/2022. When we first saw him, he was on metformin 500 mg once a day, glipizide 10 mg twice a day. He could not tolerate metformin at any dose. He is now on Tresiba 50 units daily, Ozempic 1.0 mg once a week, Jardiance 25 mg daily. He did not really notice that he was supposed to be on Tresiba 56 units. He could not tolerate Ozempic 2 mg, so he went back to Ozempic 1 mg weekly. Average blood sugar is 142, time in range is 91%, high 8%, very high 1%. Fasting sugar is 143 at noon his blood sugar is 152. At supper his blood sugar is 135 and by bedtime blood sugar is 150. Fingerstick sugar was 133 in the morning a few days before his last visit. Since we last saw him, he has lost 5 pounds Glucose was 212, creatinine was 1.1, GFR was 73, potassium was 4.1, calcium was 9.8, AST was 15, ALT was 18 on 07/17/2022. His previous glucose was 132, creatinine was 1.0, GFR was 80, potassium was 4.7, calcium was 9.3, AST was 17, ALT was 18 on 01/14/2022. Blood pressure control is good on lisinopril 40 mg daily, amlodipine 10 mg daily, carvedilol 6.25 mg twice a day. Microalbumin was 0.58 on 07/17/2022. In 2010, he had a partial left nephrectomy for renal cell carcinoma. Several years ago, he had part of his thyroid removed. Pathology was said to be benign. He has never taken any medication for his thyroid. TSH was 1.32 on , this was 0.95 on 07/22/2021. Total cholesterol was 148, triglycerides were 173, HDL was 44, LDL was 69 on 01/14/2022. He has had no muscle pain on atorvastatin 40 mg daily. His previous total cholesterol was 189, triglycerides were 332, HDL was 52, LDL was 93 on 12/18/2020. He remains on sertraline 100 mg daily for depression. He has been taking this since 2005.His feet have not been hurting, he no longer feels like he is walking on wet carpet with the front part of his left foot. Dilated eye exam was performed in April 2022 (in [place]) and he had no retinopathy. Sebastian Long MD [address] [facility], [place], [address], [facility] - [facility], [facility] 07/23/2022 13:37:43 11/19/2022 text/html Diabetes mellitus was diagnosed around 2014. Left upper lobectomy was performed for lung cancer late in 2019 and he did not need chemotherapy for this. Hemoglobin A1c was 7.4% on , this was 7.1% on 07/17/2022 When we first saw him, he was on metformin 500 mg once a day, glipizide 10 mg twice a day. He could not tolerate metformin at any dose. He could not tolerate Ozempic 2 mg, so he went back to Ozempic 1 mg weekly. He is now on Tresiba 56 units daily, Ozempic 1.0 mg once a week, Jardiance 25 mg daily. Average blood sugar is 138, time in range is 93%, high 7%. Fasting sugar is 132 by noon his blood sugar is 179 at supper his blood sugar is 136 and by bedtime his blood sugar is 150. His previous average blood sugar was 142, time in range was 91%, high 8%, very high 1%. Fasting sugar was 143, at noon his blood sugar was 152. At supper his blood sugar was 135 and by bedtime blood sugar was 150. Since we last saw him, he has gained 3 pounds Glucose was 197, creatinine was 0.9, GFR was 87, potassium was 4.6, calcium was 9.2, AST was 17, ALT was 19 on . His previous glucose was 212, creatinine was 1.1, GFR was 73, potassium was 4.1, calcium was 9.8, AST was 15, ALT was 18 on 07/17/2022 Blood pressure control is good on lisinopril 40 mg daily, amlodipine 10 mg daily, carvedilol 6.25 mg twice a day. Microalbumin was 0.58 on 07/17/2022. In 2010, he had a partial left nephrectomy for renal cell carcinoma. Several years ago, he had part of his thyroid removed. Pathology was said to be benign. He has never taken any medication for his thyroid. TSH was 1.32 on 07/17/2022, this was 0.95 on 07/22/2021. Total cholesterol was 122, triglycerides were 205, HDL was 37, LDL was 44 on 11/12/2022. He has had no muscle pain on atorvastatin 40 mg daily. His previous total cholesterol was 148, triglycerides were 173, HDL was 44, LDL was 69 on 01/14/2022. He remains on sertraline 100 mg daily for depression. He has been taking this since 2005 His feet have not been hurting, he no longer feels like he is walking on wet carpet with the front part of his left foot. Dilated eye exam was performed in April 2022 (in [place]) and he had no retinopathy. He leaves for [place] in December and he will be back by June 2032 Sebastian Long MD [address] [facility], [place], [address], [facility] - [facility] 11/19/2022 13:33:01
--- OUTSIDE RECORDS SUMMARY | 2025-08-31 07:28 | XMS_ITS | Encounter Summary ---
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 Name Role Phone Jaymie Us DO Primary Care Provider [phone] Marie Hayes DO Unavailable [phone] Jacob Willis MD Primary Care Provider [phone] Shilpa Wilkes MD Unavailable [phone] Jacob Willis MD Unavailable [phone] Encounter Details Date Type Department Care Team (Late st Contact Info) Description 10/04/2024 Scanned Document [facility] Department of Internal Medicine [address] [phone] Jaymie Us DO [address] [place] [address] Social History Tobacco Use Types Packs/Day Years [...] Visit [facility] Department of Internal Medicine [address] [phone] Jacob Willis MD [address] [place] [address] 02/14/2026 12:30 PM EDT Appointment [address] [phone] Shilpa Wilkes MD [address] [place] [address] 02/14/2026 1:45 PM EDT Ancillary Procedure [address] [phone] Shilpa Wilkes MD [address] [place] [address] 02/18/2026 1:20 PM EDT Office Visit [address] [phone] Shilpa Wilkes MD [address] [place] [address] 05/24/2026 1:00 PM EDT Office Visit [facility] Department of Internal Medicine & Nephrology [place] [address] [place] [phone] Mark Nunez MD [address] [facility] [address] [place] [address] documented as of this encounter Visit Diagnoses Not on filedocumented in this encounter Care Teams Corn Crop Supervisor Relationship Specialty Start Date End Date Abeba JaymieDO [address] [facility] [place] [address] PCP - General Family Medicine 02/10/23 02/06/25 Jacob Willis MD [address] [place] [address] PCP - General Internal Medicine 02/07/25 Jacob Willis MD [address] [place] [address] PCP - Lisandro Quiroga MA Attributed 07/14/25 Marie Hayes DO [address] [facility] [address] [place] [address] Endocrinology 02/11/24 Shilpa Wilkes MD [address] [place] [address] 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
--- OUTSIDE RECORDS SUMMARY | 2025-08-31 07:28 | XMS_ITS | Clinical Summary ---
Author Organization [facility] Address [address] [place] [phone] Phone Care Team Providers Care Bridge Game Director Name Role Phone Olvin Lang MD Primary Care Provider [phone] Allergies Active Allergy Reactions Criticality Noted Date Comments Hydrocortisone 02/21/2025 Medications amLODIPine (NORVASC) 10 mg tablet amlodipine 10 mg tablet TAKE ONE TABLET BY MOUTH ONE TIME DAILY Active atorvastatin (LIPITOR) 80 mg tablet 0 Active carvediloL (COREG) 12.5 mg tablet 2 (two) times a day. 0 Active cyanocobalamin (VITAMIN B-12) 100 mcg tablet Take 0.5 tablets (50 mcg total) by mouth. Active Jardiance 25 mg tablet 0 Active glipiZIDE 2.5 mg tablet 0 Active NovoLOG Flexpen U-100 Insulin 100 unit/mL (3 mL) injection pen INJECT 10 UNITS THREE TIMES DAILY BEFORE MEALS 4 Active Tresiba FlexTouch U-100 100 unit/mL (3 mL) injection pen Inject 85 Units under the skin daily. 5 Active lisinopriL (PRINIVIL,ZESTR IL) 30 mg tablet 0 Active nystatin (MYCOSTATIN) ointment Apply topically 2 times daily. 4 Active ofloxacin (FLOXIN) 0.3 % otic solution INSTILL 5 DROPS INTO THE LEFT EAR TWO TIMES A DAY FOR 7 DAYS 5 Active sertraline (ZOLOFT) 100 mg tablet Take by mouth. Activ e Mounjaro 2.5 mg/0.5 mL injection ADMINISTER 2.5 MG UNDER THE SKIN 1 TIME A WEEK 5 Active coenzyme Q-10 10 mg capsule Take 1 tablet by mouth. Active Active Problems Problem Noted Date Diagnosed Date History of lung cancer 02/22/2025 Assessment & Plan (02/22/2025 3:20 PM EDT): In July 2020 had a left upper lobectomy for a stage Ia 1 adenocarcinoma, lipidic predominant. Of note patient also has a history of left-sided renal cell carcinoma s/p left-sided nephrectomy in 2009.. While patient was in office reviewed his most recent chest CT scan for which images I personally reviewed and agree with radiologist findings which was performed at [facility] on 02/13/2025 Shows no new or worsening pulmonary nodules or suspicious mediastinal lymphadenopathy to suggest recurrent or metastatic disease in the chest. His next chest CT surveillance scan will be due in 1 years time which will be February 2026 and have a visit at the thoracic surgery department thereafter to discuss results. Surgical History Surgery Date Site/Laterality Comments OTHER SURGICAL HISTORY 11/25, 2012, 2011, 2010 PROCEDURE: AK RPR RECRT INCAL/VNT HERNIA REDUCIBLE; COMMENT: L flankl OTHER SURGICAL HISTORY 2009 PROCEDURE: ---- OTHER ----; COMMENT: L partial nephrectomy for RCC LITHOTRIPSY PROCEDURE: HISTORICAL LITHOTRIPSY; COMMENT: several OTHER SURGICAL HISTORY 1991 PROCEDURE: AK PRTL THYROID LOBECTOMY UNI W/WO ISTHMUSECTOMY COLONOSCOPY 2006 PROCEDURE: HISTORICAL COLONOSCOPY; COMMENT: Negative examination. Done in [place]. COLONOSCOPY 07/20/2016 PROCEDURE: HISTORICAL COLONOSCOPY; COMMENT: Small polyps 2: OTHER SURGICAL HISTORY 07/23/2020 Left PROCEDURE: ---- OTHER ----; COMMENT: left upper lobectomy for adenocarcinoma Medical History Medical History Date Comments Controlled diabetes mellitus type II without complication (CMS/HCC V24, CMS/HCC V28) 11/13/2013 DX:Controlled diabetes melli tus type II without complication (HCC) Incisional hernia 11/13/2013 DX:Incisional hernia; COMMENT: Recurrent, L flank, s/p partial nephrectomy Back pain 11/13/2013 DX:Back pain Anxiety and depression 11/13/2013 DX:Anxiet y and depression Hyperlipidemia 11/13/2013 DX:Hyperlipidemi a Hypertension 11/13/2013 DX:Hypertension History of renal carcinoma 11/13/2013 DX:Hi story of renal carcinoma; COMMENT: L partial nephrectomy in 2009; follows with Dr. Ribeiro for monitoring Fatty liver 12/20/2013 DX:Fatty liver Peyronie disease 11/01/2015 DX:Peyronie dis ease; COMMENT: Taking Vit E per urology Tobacco use disorder 08/14/2016 DX:Tobacco use disorder Family History Medical History Relation Name Comments Other: aneurysm Brother 3 Other: aneurysm Father Diabetes Mother Brain Aneurysm Sister 1 5 Thyroid disease Sister 2 Coronary artery disease Neg Hx Hypertension Neg Hx Other cancer Neg Hx Relation Name Status Comments Brother 3 Alive Father Mother Sister 1 5 Alive Sister 2 Social History Tobacco Use Types Packs/Day Years Used Date Smoking Tobacco: Every Day Cigarettes 1 44.2 Started: 1981 Smokeless Tobacco: Never Alcohol Use Standard Drinks/Week Comments Yes 0 (1 standard drink = 0.6 oz pur e alcohol) Sex and Gender Information Value Date Recorded Sex Assigned at Male 02/12/2025 4:06 PM EDT Legal Sex Male 9:56 PM EST Gender Identity Male 02/12/2025 4:06 PM EDT Sexual Orientation Lesbian or Ovalle 02/16/2025 9: 55 AM EDT Last Filed Vital Signs Vital Sign Reading Time Taken Comments Blood Pressure 129/80 02/21/2025 10:58 AM EDT Pulse 68 02/21/2025 10:58 AM EDT Temperature 36.9 C (98.4 F) 02/21/2025 10:58 AM EDT Respiratory Rate 16 02/21/2025 10:58 AM EDT Oxygen Saturation 94% 02/21/2025 10:58 AM EDT Inhaled Oxygen Concentration - - Weight 120 kg (264 lb 11.2 oz) 02/21/2025 10:58 AM EDT Height 180.3 cm (5' 11 ) 02/21/2025 10:58 AM EDT Body Mass Index 36.92 02/21/2025 10:58 AM EDT Plan of Treatment Health Maintenance Due Date Last Done Comments Colorectal Cancer Screening: Colonoscopy 1956 Diabetes: Annual Foot Exam 1966 Diabetes: Annual Retina Eye Exam 1966 Hepatitis A Vaccines (1 of 2 - Risk 2-dose series) 1975 Zoster Vaccines (1 of 2) 1975 Hepatitis B Vaccines (1 of 3 - Risk 3-dose series) 2016 Abdominal Aortic Aneurysm (AAA) Screen 08/15/2022 Cholesterol Screening (Lipid Panel) 08/15/2022 Falls Risk Assessment 08/15/2022 Hepatitis C Screening 08/15/2022 Lung Cancer Screening (Low Dose CT) 08/15/2022 Medicare Annual Wellness Visit 08/15/2022 Social Influencers of Health Screening 08/15/2022 Depression Screening 09/13/2024 COVID-19 Vaccine ( season) 2025 07/09/2021, 12/19/2020, 11/21/2020 Influenza Vaccine (#1) 2025 , 07/29/2023, 06/11/2022, Additional history exists Diabetes: Blood Sugar Control Test (HGBA1C) 08/10/2025 02/07/2025, 04/02/2020 Diabetes: Annual Urine Albumin-Creatinine Ratio (uACR) 02/12/2026 02/12/2025, 02/11/2024, 04/02/2020, Additional history exists Diabetes: Annual GFR (Glomerular Filtration Rate) 02/12/2026 02/12/2025, 08/30/2020, 08/30/2020, Additional history exists Hypertension/CHF/CAD Annual BMP Blood Test 02/12/2026 02/12/2025, 08/30/2020, 08/30/2020, Additional history exists DTaP,Tdap,and Td Vaccines (4 - Td or Tdap) 11/18/2031 11/17/2021, 04/04/2018, 04/28/2016 Pneumococcal Vaccine: 50+ Years Completed 07/10/2021, 07/08/2020, 06/21/2019 RSV Immunization Adult Patients Completed 07/29/2023 HIB Vaccines Aged Out No longer eligi ble based on patient's age to complete this topic HPV Vaccines Aged Out No longer eligi ble based on patient's age to complete this topic IPV Vaccines Aged Out No longer eligi ble based on patient's age to complete this topic MMR Vaccines Aged Out No longer eligi ble based on patient's age to complete this topic Meningococcal ACWY Vaccine Aged Out N o longer eligible based on patient's age to complete this topic Meningococcal B Vaccine Aged Out No l onger eligible based on patient's age to complete this topic RSV Immunization Patients Under 20 months Aged Out No longer eligible based on patient's age to complete this topic Varicella Vaccines Aged Out No longer eligible based on patient's age to complete this topic Insurance [employer] MEDICARE ADVANTAGE MEDICARE Advance Directives Documents on File Type Date Recorded 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 Expl anation Health Care Decision (hx) 08/02/2012 AD PENA DIRECTIVE Health Care Decision (hx) 08/02/2012 AD PENA DIRECTIVE Health Care Decision (hx) 08/02/2012 AD PENA DIRECTIVE Health Care Decision (hx) 08/02/2012 AD PENA DIRECTIVE Health Care Decision (hx) 08/02/2012 AD PENA DIRECTIVE Health Care Decision (hx) 08/02/2012 AD PENA DIRECTIVE Health Care Decision (hx) 08/02/2012 AD PENA DIRECTIVE Health Care Decision (hx) 08/02/2012 AD PENA DIRECTIVE Health Care Decision (hx) 08/02/2012 AD PENA DIRECTIVE Health Care Decision (hx) 08/02/2012 AD PENA DIRECTIVE Health Care Decision (hx) 08/02/2012 AD PENA DIRECTIVE Health Care Decision (hx) 08/02/2012 AD PENA DIRECTIVE Health Care Decision (hx) 08/02/2012 AD PENA DIRECTIVE Health Care Decision (hx) 08/02/2012 AD PENA DIRECTIVE Health Care Decision (hx) 08/02/2012 AD PENA DIRECTIVE Health Care Decision (hx) 08/02/2012 AD PENA DIRECTIVE Health Care Decision (hx) 08/02/2012 AD PENA DIRECTIVE Health Care Decision (hx) 08/02/2012 AD PENA DIRECTIVE Health Care Decision (hx) 08/02/2012 AD PENA DIRECTIVE Health Care Decision (hx) 08/02/2012 AD PENA DIRECTIVE Health Care Decision (hx) 08/02/2012 AD PENA DIRECTIVE Health Care Decision (hx) 08/02/2012 AD PENA DIRECTIVE Health Care Decision (hx) 08/02/2012 AD PENA DIRECTIVE Health Care Decision (hx) 08/02/2012 AD PENA DIRECTIVE Health Care Decision (hx) 08/02/2012 AD PENA DIRECTIVE Health Care Decision (hx) 08/02/2012 AD PENA DIRECTIVE Health Care Decision (hx) 08/02/2012 AD PENA DIRECTIVE Health Care Decision (hx) 08/02/2012 AD PENA DIRECTIVE Health Care Decision (hx) 08/02/2012 AD PENA DIRECTIVE Health Care Decision (hx) 08/02/2012 AD PENA DIRECTIVE Health Care Decision (hx) 08/02/2012 AD PENA DIRECTIVE Health Care Decision (hx) 08/02/2012 AD PENA DIRECTIVE Health Care Decision (hx) 08/02/2012 AD PENA DIRECTIVE Health Care Decision (hx) 08/02/2012 AD PENA DIRECTIVE Health Care Decision (hx) 08/02/2012 AD PENA DIRECTIVE Health Care Decision (hx) 08/02/2012 AD PENA DIRECTIVE Health Care Decision (hx) 08/02/2012 AD PENA DIRECTIVE Health Care Decision (hx) 08/02/2012 AD PENA DIRECTIVE Health Care Decision (hx) 08/02/2012 AD PENA DIRECTIVE Health Care Decision (hx) 08/02/2012 AD PENA DIRECTIVE Health Care Decision (hx) 08/02/2012 AD PENA DIRECTIVE Health Care Decision (hx) 08/02/2012 AD PENA DIRECTIVE Health Care Decision (hx) 08/02/2012 AD PENA DIRECTIVE Health Care Decision (hx) 08/02/2012 AD PENA DIRECTIVE Health Care Decision (hx) 08/02/2012 AD PENA DIRECTIVE Health Care Decision (hx) 08/02/2012 AD PENA DIRECTIVE Health Care Decision (hx) 08/02/2012 AD PENA DIRECTIVE Health Care Decision (hx) 08/02/2012 AD PENA DIRECTIVE Care Teams Bridge Game Director Relationship Specialty Start Date End Date Olvin Lang MD [address] [place] [id number] PCP - General Internal Medicine 02/12/25
--- OUTSIDE RECORDS SUMMARY | 2025-08-31 07:28 | XMS_ITS | Encounter Summary ---
Author Organization [facility] Address [address] [place] [address] Care Team Providers Care Surveillance Systems Analyst Name Role Phone Pcp, No Primary Care Provider Unavailabl e Jaymie Us DO Primary Care Provider [phone] Marie Hayes DO Unavailable [phone] Jacob Willis MD Primary Care Provider [phone] Shilpa Wilkes MD Unavailable [phone] Jacob Willis MD Unavailable [phone] Encounter Details Date Type Department Care Team (Late st Contact Info) Description 05/09/2020 Scanned Document [facility] [address] [place] [address] Bernabe Bobby MD [address] [facility] [address] [place] [address] Social History Tobacco Use Types Packs/Day Years [...] or null) 0 05/30/2024 3:00 PM EDT COVID-19 Exposure Response Date Recorded In the last month, have you been in contact with someone who was confirmed or suspected to have Coronavirus / COVID-19? No / Unsure 05/07/2020 3:23 PM EDT documented as of this encounter Plan of Treatment Upcoming Encounters Date Type Department Care Team (Late st Contact Info) Description 09/03/2025 2:15 PM EST Office Visit [facility] Department of Internal Medicine [address] [phone] Jacob Willis MD [address] [place] [address] 02/14/2026 12:30 PM EDT Appointment [address] [phone] Shilpa Wilkes MD [address] [place] [address] 02/14/2026 1:45 PM EDT Ancillary Procedure [address] [phone] Shilpa Wilkes MD [address] [place] [address] 02/18/2026 1:20 PM EDT Office Visit [address] [phone] Shilpa Wilkes MD [address] [place] [address] 05/24/2026 1:00 PM EDT Office Visit [facility] Department of Internal Medicine & Nephrology [place] [address] [place] [phone] Mark Nunez MD 85 [facility] [address] [place] [address] documented as of this encounter Procedures Procedure Name Priority Date/Time Associated Diagnosis Comments PATHOLOGY REPORT 05/09/2020 12:00 AM EDT documented in this encounter Results * (REPORT) PATHOLOGY REPORT (05/09/2020 12:00 AM EDT) us Bernabe Bobby MD PATHOLOGY/CYTOLOGY ORDERABLES F inal Result documented in this encounter Visit Diagnoses Not on filedocumented in this encounter Care Teams Surveillance Systems Analyst Relationship Specialty Start Date End Date Pcp, No PCP - General General Medicine 07/26/20 02/09/23 Jaymie Us DO [address] [place] [address] PCP - General Family Medicine 02/10/23 02/06/25 Jacob Willis MD [address] [place] [address] PCP - General Internal Medicine 02/07/25 Jacob Willis MD [address] [place] [address] PCP - Lisandro Quiroga MA Attributed 07/14/25 Marie Hayes DO [address] [place] [address] Endocrinology 02/11/24 Shilpa Wilkes MD [address] [place] [address] Primary Welder Fitter Apprentice Cardiovascular 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
--- OUTSIDE RECORDS SUMMARY | 2025-08-31 07:29 | XMS_ITS ---
Author Name [facility] Organization Unknown Results Test Name/Text Value Interpretation Date Range Source Path report.final Dx Spec 05/31/2025 [facility] Specimen source 05/31/[address] [facility] Path report.gross Spec 05/31/2025 [facility] Pathologist name 05/31/2025 [facility] Clinical info 05/31/2025 [facility] History of Medication Use Medication Directions Dispensed Refills Start Date End Date Status insulin degludec (Tresiba FlexTouch) 100 UNIT/ML prefilled pen injection Inject 85 Units under the skin nightly. 5 active NovoLOG FLEXPEN, insulin aspart, 100 UNIT/ML prefilled pen injection Inject 25 Units under the skin 3 (three) times a day before meals. 5 active linagliptin (TRADJENTA) 5 MG Tab Take 1 tablet (5 mg total) by mouth daily. 5 active wbjokjcb-zunvazqoz-xtmTG ETHasone (MAXITROL) 3.5-74003-9.1 ophthalmic suspension SHAKE LIQUID AND INSTILL 1 DROP IN RIGHT EYE THREE TIMES DAILY 5 active empagliflozin (Jardiance) 25 MG tablet Take 1 tablet (25 mg total) by mouth every morning. 5 active hydrocortisone (ANUSOL-HC) 2.5 % rectal cream Insert into the rectum 3 (three) times a day as needed for hemorrhoids. 4 active nystatin (MYCOSTATIN) 527182 UNIT/GM cream Apply topically 2 (two) times a day. 4 active nystatin (MYCOSTATIN) ointment Apply topically 2 (two) times a day. 4 active tadalafil (CIALIS) 5 mg tablet TAKE 1 TABLET BY MOUTH DAILY FOR SEXUAL ACTIVITY 4 active testosterone cypionate (DEPO-TESTOSTERONE CYPIONATE) 200 mg/mL injection INJECT 0.5ML INTO SKIN ONCE A WEEK FOR 4 WEEKS 4 active NovoLOG FLEXPEN, insulin aspart, 100 UNIT/ML prefilled pen injection INJECT 10 UNITS THREE TIMES DAILY BEFORE MEALS 4 active atorvastatin (LIPITOR) 20 MG tablet TAKE 1 TABLET(20 MG) BY MOUTH DAILY 4 05/12/20 24 active sodium chloride 0.9% (NS) infusion 150 mL/hr, Intravenous, Continuous, Starting on Angelina 04/22/23 at 0830, Pre-Procedure (GI)May adjust as needed. 3 active Continuous Glucose Dental Prosthetist (FreeStyle Lissette 3 Petal) Device Use to check blood sugar continuously 3 active Sod Picosulfate-Mag Ox-Cit Acd (CLENPIQ) 10-3.5-12 MG-GM -GM/175ML Solution Take as directed 3 active Ozempic, 1 MG/DOSE, 4 MG/3ML prefilled pen injection INJECT 1 MG UNDER THE SKIN ONCE A WEEK 3 active canagliflozin (INVOKANA) 300 mg tablet tablet Take 1 tablet (300 mg total) by mouth daily. 0 active semaglutide 0.25 mg or 0.5 mg(2 mg/1.5 mL) pen injector Inject 0.25 mg under the skin every 7 days. 0 active FreeStyle Lissette 2 Sensor kit 1 each every 14 (fourteen) days. 0 active polyethylene glycol (COLYTE) 240 g solution Night Before: Drink 8 Oz (1 cup) every 10 minutes until HALF of jug is finished. Day of: Drink 8 Oz (1 cup) every 10 minutes until empty. 0 02/11/20 23 aborted empagliflozin (Jardiance) 25 MG tablet 02 0 active lisinopril (PRINIVIL,ZeSTRIL) 40 MG tablet 0 active lisinopriL (PRINIVIL) 40 mg tablet 0 active hydroCHLOROthiazide (MICROZIDE) capsule 2 (two) times a day. 0 active carvedilol (COREG) 12.5 MG tablet 2 (two) times a day. 0 active carvediloL (COREG) 12.5 mg tablet 2 (two) times a day. 0 active glipiZIDE (GLUCOTROL XL) 10 mg 24 hr tablet Take 10 mg by mouth. 9 active hydrochlorothiazide (MICROZIDE) 12.5 MG capsule 2 (two) times a day. 9 active glipiZIDE (GLUCOTROL) 5 mg tablet Take by mouth 2 (two) times a day. 4 active FreeStyle Precision Fab Strips strip Use with Freestyle Lissette 2 as directed. Diagnosis code; 3 active Tradjenta completed sertraline completed lisinopril completed Novolog FlexPen U-100 Insulin completed Vitamin D3 completed Tresiba FlexTouch U-100 completed amlodipine completed Jardiance completed vitamin E completed Ultra CoQ10 completed rosuvastatin completed tadalafil completed amoxicillin completed Mounjaro completed amLODIPine (NORVASC) 10 mg tablet amlodipine 10 mg tablet TAKE ONE TABLET BY MOUTH ONE TIME DAILY active amLODIPine (NORVASC) 10 MG tablet amlodipine 10 mg tablet TAKE ONE TABLET BY MOUTH ONE TIME DAILY active amLODIPine-benazepril (LOTREL 5-20) 5-20 MG per capsule Take 1 capsule by mouth daily. active atorvastatin (LIPITOR) 20 mg tablet daily. active atorvastatin (LIPITOR) 20 MG tablet daily. active atorvastatin (LIPITOR) 80 MG tablet Take 80 mg by mouth daily. active co-enzyme Q-10 50 mg capsule Take 50 mg by mouth daily. active Coenzyme Q10 (Co Q 10) 10 MG Cap Take 1 tablet by mouth. active insulin degludec (Tresiba FlexTouch) 100 UNIT/ML prefilled pen injection ADMINISTER 16 UNITS UNDER THE SKIN DAILY AT BEDTIME active pyridoxine (B-6) 25 MG tablet Take 25 mg by mouth daily. active rizatriptan (MAXALT-MOLD CLEANER) [address] ONE TABLET BY MOUTH THREE TIMES A DAY NEEDED FOR HEADACHE active sertraline (ZOLOFT) 100 mg tablet Take by mouth daily. active sertraline (ZOLOFT) 100 MG tablet Take by mouth. active vitamin E 1,000 unit capsule Take 1,000 Units by mouth daily. active Allergies Allergen Reaction Severity Comment Documented Date Source Statu s HYDROCORTISONE UNKNOWN/PATIENT AND FAMILY UNABLE TO DEFINE 02/21/2025 [facility] active BACITRACIN-POLYMYXIN B RASH/DERMATITIS 0 [facility] active ACWZY-UHEAF-WWIFJEP-IA AMOXINE RASH 04/02/2020 [facility] active NEOMYCIN-POLYMYXIN B 11/13/2013 [facility] active POLYMYXIN B RASH 04/27/2012 [facility] active METFORMIN DIARRHEA [facility] BACITRACIN RASH [facility] BENZALKONIUM CHLORIDE RASH [facility] GRAMICIDIN D RASH [facility] NEOMYCIN SULFATE RASH [facility] Problems Problem Status Onset Date Problem Type Date of Resolution Source Increased BMI active 2020-06-03 ProblemAct [facility] Morbid obesity active 2024-09-[address] Centrilobular emphysema active 2025-05-21 ProblemAct [facility] Diarrhea active 2020-06-03 ProblemAct [facility] Coronary atherosclerosis due to lipid rich plaque active EncounterDiagnosisAct [facility] Erectile dysfunction active 2025-02-07 ProblemAct [facility] Renal cysts, acquired, bilateral active 2024-02-11 ProblemAct [facility] Carotid bruit, unspecified laterality active EncounterDiagnosisAct [facility] Renal cell carcinoma of left kidney active 2024-02-11 ProblemAct [facility] Alcohol abuse active EncounterDiagnosisAct [facility] Renal cysts, acquired, bilateral active 2024-02-11 ProblemAct [facility] Fatty liver active 2013-12-20 ProblemAct [facility] CKD stage 3a, GFR 45-59 ml/min active 2024-02-11 ProblemAct [facility] Obesity (BMI 30-39.9) active EncounterDiagnosis Act [facility] Stage 3 chronic kidney disease, unspecified whether stage 3a or 3b CKD (HCC) active EncounterDiagnosisAct [facility] Malignant neoplasm of lung, unspecified laterality, unspecified part of lung (HCC) active EncounterDiagnosisAct [facility] Anxiety and depression active 2013-11-13 ProblemAct [facility] H/O partial nephrectomy active EncounterDiagnosisAct [facility] Essential hypertension active 2024-02-11 ProblemAct [facility] Low testosterone in male active 2025-02-07 ProblemAct [facility] Essential hypertension active 2024-02-11 ProblemAct [facility] Low testosterone in male active 2025-02-07 ProblemAct [facility] Hx of adenomatous colonic polyps active 2020-06-09 ProblemAct [facility] Hyperlipidemia active 2013-11-13 ProblemAct [facility] Incisional hernia, without obstruction or gangrene active 2020-06-03 ProblemAct [facility] History of renal carcinoma active 2013-11-13 ProblemAct [facility] Tobacco abuse [facility] Diabetic nephropathy associated with type 2 diabetes mellitus active 2024-02-11 ProblemAct [facility] Smoking active 2024-02-11 ProblemAct [facility] Diabetes mellitus active 2017-07-02 ProblemAct [facility] Mixed hyperlipidemia active EncounterDiagnosisA ct [facility] Hypertension active 2020-04-02 ProblemAct [facility] 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 ProblemAct [facility] Diabetic complication active 2020-04-02 ProblemAct [facility] Hyperlipidemia active 2020-04-02 ProblemAct [facility] Immunizations Vaccine Date Source Lot Number Status Influenza, Trivalent (FLUAD) Adjuvanted Preservative Free IM 65 years and older 06/29/2024 [facility] [id number] completed Influenza High-Dose Quadriva lent,(FLUZONE HIGH-DOSE), Perservative Free IM 0.7 mL 65 years and older 07/29/2023 [facility] [id number] completed Influenza High-Dose Quadriva lent,(FLUZONE HIGH-DOSE), Perservative Free IM 0.7 mL 65 years and older 07/29/2023 [facility] [id number] completed RSV, Bivalent, Protein Subun it RSVPREF (ABRYSVO), Diluent Reconstituted, 0.5 mL PF 07/29/2023 [facility] [id number] completed Influenza High-Dose Quadriva lent,(FLUZONE HIGH-DOSE), Perservative Free IM 0.7 mL 65 years and older 06/11/2022 [facility] [id number] completed Tdap 11/17/2021 [facility] [id number] completed Pneumococcal Polysaccharide 23-Valent 07/10/2021 [facility] completed Covid-19 mRNA Primary Series Vaccine - Moderna 0.5 mL Full Dose 07/09/2021 [facility] completed Influenza High-Dose Quadriva lent,(FLUZONE HIGH-DOSE), Perservative Free IM 0.7 mL 65 years and older 07/06/2021 [facility] completed Influenza, Quadrivalent (FLU CELVAX) MDCK, Preservative Free IM 07/08/2020 [facility] [id number] completed Pneumococcal Conjugate 13-Valent 07/08/2020 [facility] [id number] completed Influenza, Trivalent (FLUARI X, AFLURIA, FLULAVAL, FLUZONE) Preservative Free IM 06/21/2019 [facility] completed Pneumococcal Polysaccharide 23-Valent 06/21/2019 [facility] completed Influenza, Trivalent (FLUARI X, AFLURIA, FLULAVAL, FLUZONE) Preservative Free IM 07/06/2018 [facility] completed Tdap 04/04/2018 [facility] [id number] completed Influenza, Trivalent (FLUARI X, AFLURIA, FLULAVAL, FLUZONE) Preservative Free IM 06/15/2016 [facility] completed Tdap 04/28/2016 [facility] [id number] completed Influenza, Trivalent (FLUARI X, AFLURIA, FLULAVAL, FLUZONE) Preservative Free IM 06/20/2015 [facility] completed Encounters Encounter Type Encounter Reason Primary Diagnosis Location Date Ambulatory Essential (primary) hypertension Essential (primary) hypertension [facility] 07/17/2025 Ambulatory Sebaceous cyst Sebaceous cyst [facility] 06/05/2025 Ambulatory CONSULT CONSULT [place] [employer] [facility] 05/29/2025 Ambulatory Follow-up Follow-up [place] [employer] [facility] 05/18/2025 Ambulatory [facility] 05/18/2025 [facility]ulatory [facility] 03/05/2025 Ambulatory [facility] 02/16/2025 Ambulatory [place] [employer] 02/12/2025 Ambulatory Establish Care Establish Care [facility] 02/07/2025 Ambulatory Morbid (severe) obesity due to excess calories Morbid (severe) obesity due to excess calories [facility] 09/29/2024 Ambulatory [facility] 09/18/2024 Ambulatory [facility] 09/15/2024 Ambulatory Hemorrhoids Hemorrhoids [place] [employer] [facility] 05/31/2024 Ambulatory Cyst of kidney, acquired Cyst of kidney, acquired [facility] 02/11/2024 Ambulatory [facility] 04/22/2023 Care Team Organization Name Specialty Phone Email Start Date End Da te [facility] Primary Care 05/18/2025 08/15/2025 [place] [employer] [employer] GRISEL Primary Care 02/07/2025 08/15/2025 [place] [employer] Jacob Willis Primary Care 02/07/2025 [facility]/22/2025 [facility] 01/22/2025 [place] [employer] DANIEL RECINOS Primary Care 04/22/2023 08/15/2025 [place] [employer] DANIEL RECINOS Primary Care
--- OUTSIDE RECORDS SUMMARY | 2025-08-31 07:29 | XMS_ITS | Encounter Summary ---
Author Organization [facility] Address [address] [place] [address] Care Team Providers Care Labeling Strategist Name Role Phone Jaymie Us Primary Care Provider [phone] Encounter Details Date Type Department Care Team (Late st Contact Info) Description 08/10/2020 Orders Only [facility] [place] [address] [place] [address] Femi Mora MD [address] [facility] [address] Social History Tobacco Use Types Packs/Day Years Used Date Smoking Tobacco: Heavy Smoker Smokeless Tobacco: Never Alcohol Use Standard Drinks/Week Comments Yes 0 (1 standard drink = 0.6 oz pur e alcohol) Sex and Gender Information Value Date Recorded Sex Assigned at Not on file Legal Sex Male 9:05 AM EST Gender Identity Not on file Sexual Orientation Not on file documented as of this encounter Plan of Treatment Not on file documented as of this encounter Visit Diagnoses Not on filedocumented in this encounter Care Teams Labeling Strategist Relationship Specialty Start Date End Date Jaymie Us [address] [facility] [place] [id number] PCP - General Family Medicine 04/29/20 documented as of this encounter
--- OUTSIDE RECORDS SUMMARY | 2025-08-31 07:29 | XMS_ITS | Clinical Summary ---
Author Organization [facility] Address [address] [place] [address] Care Team Providers Care Smoke Control Supervisor Name Role Phone KeylaMarie asencio Sudhakar FREY Unavailable [phone] Jacob Willis MD Primary Care Provider [phone] Shilpa Wilkes MD Unavailable [phone] Jacob Willis MD Unavailable [phone] Allergies Active Allergy Reactions Criticality Noted Date Comments Hydrocortisone Unknown/Patient and Family Unable to Define Medium 02/21/2025 Metformin Diarrhea Low 04/02/2020 Bacitracin-Polymyxin B Rash/Dermatitis Low 04/05/20 20 Medications carvedilol (COREG) 12.5 MG tablet 2 (two) times a day. 0 20 Active lisinopril (PRINIVIL,ZeSTR IL) 40 MG tablet 02/26/20 20 Active sertraline (ZOLOFT) 100 MG tablet Take by mouth. Activ e Coenzyme Q10 (Co Q 10) 10 MG Cap Take 1 tablet by mouth. Active Cholecalciferol (VITAMIN D3 PO) Take by mouth daily. Active B-D HYPODERMIC NEEDLE 21GX1 21G X 1 Misc DIRECTED FOR T INJECTION 05/24/20 24 Active pyridoxine (B-6) 25 MG tablet Take 25 mg by mouth daily. Active tadalafil (CIALIS) 5 mg tablet TAKE 1 TABLET BY MOUTH DAILY FOR SEXUAL ACTIVITY 05/18/20 24 Active empagliflozin (Jardiance) 25 MG tabletIndicatio ns:Morbid obesity (HCC) Take 1 tablet (25 mg total) by mouth every morning. 90 tablet 3 09/29/19 25 Active atorvastatin (LIPITOR) 80 MG tablet Take 80 mg by mouth daily. Active linagliptin (TRADJENTA) 5 MG TabIndications: Diabetic nephropathy associated with type 2 diabetes mellitus (HCC),Type 2 diabetes mellitus with stage 3b chronic kidney disease, with long-term current use of insulin (HCC) Take 1 tablet (5 mg total) by mouth daily. 90 tablet 3 02/08/20 25 026 Active BD Pen Needle Vanda 2nd Gen 32G X 4 MM Misc INJECT DAILY 12/06/19 25 Active insulin degludec (Tresiba FlexTouch) 100 UNIT/ML prefilled pen injectionIndica tions:Type 2 diabetes mellitus with stage 3b chronic kidney disease, with long-term current use of insulin ([facility]) Inject 85 Units under the skin nightly. 63 mL 3 05/18/20 25 Active Additional Information Patient taking differently: 80 UnitsSubcutaneous Nightly, Reported on 07/17/2025 NovoLOG FLEXPEN, insulin aspart, 100 UNIT/ML prefilled pen injectionIndica tions:Type 2 diabetes mellitus with stage 3b chronic kidney disease, with long-term current use of insulin ([facility]) Inject 25 Units under the skin 3 (three) times a day before meals. 22.5 mL 3 05/18/20 25 Active Continuous Glucose Roof Painter (FreeStyle Lissette 3 [place]) DeviceIndicatio ns:Type 2 diabetes mellitus with stage 3b chronic kidney disease, with long-term current use of insulin ([facility]) Use to check blood sugar continuously 1 each 05/18/20 25 Active amLODIPine-ridge zepril (LOTREL 5-20) 5-20 MG per capsule Take 1 capsule by mouth daily. Active Active Problems Problem Noted Date Diagnosed Date Centrilobular emphysema 05/21/2025 Low testosterone in male 02/07/2025 Erectile dysfunction 02/07/2025 Morbid obesity 09/29/2024 Renal cell carcinoma of left kidney 02/11/2024 Diabetic nephropathy associa mikael with type 2 diabetes mellitus 02/11/2024 CKD stage 3a, GFR 45-59 ml/min 02/11/2024 Renal cysts, acquired, bilateral 02/11/2024 Essential hypertension 02/11/2024 Smoking 02/11/2024 Hx of adenomatous colonic polyps 06/09/2020 Incisional hernia, without obstruction or gangre ne 06/03/2020 Diarrhea, medication induced 06/03/2020 Increased BMI 06/03/2020 Diabetes mellitus 07/02/2017 Fatty liver 12/20/2013 Anxiety and depression 11/13/2013 Overview (06/03/2020): Dr Tellez History of renal carcinoma 11/13/2013 Overview (06/03/2020): L partial nephrectomy in 2009; follows with urology Hyperlipidemia 11/13/2013 Hypertension 11/13/2013 Encounters Date Type Department Care Team Description 07/17/2025 2:00 PM EST Consult [facility] Heart [facility] [place] [address] [phone] Jacob Willis MD Agarwalla, Sneha, MD Primary hypertension (Primary Dx); Coronary atherosclerosis due to lipid rich plaque; Obesity (BMI 30-39.9); Mixed hyperlipidemia; Stage 3 chronic kidney disease, unspecified whether stage 3a or 3b CKD (HCC); History of renal carcinoma; H/O partial nephrectomy; Tobacco abuse; Carotid bruit, unspecified laterality; Erectile dysfunction, unspecified erectile dysfunction type; Alcohol abuse; Malignant neoplasm of lung, unspecified laterality, unspecified part of lung (HCC) 06/05/2025 2:10 PM EDT Office Visit [facility] General Surgery [address] [phone] John Darden MD Sebaceous cyst (Primary Dx) from Last 3 Months Immunizations Immunization Administration Dates Next Due Covid-19 mRNA Primary Series Vaccine - Moderna 0.5 mL Full Dose 07/09/2021 Influenza High-Dose Quadrivalent,(FLUZONE HIGH-DOSE), Perservative Free IM 0.7 mL 65 years and older 07/29/2023,06/11/2022,07/06/2021 Influenza, Quadrivalent (FLU CELVAX) MDCK, Preservative Free IM 07/08/2020 Influenza, Trivalent (FLUAD) Adjuvanted Preservative Free IM 65 years and older 06/29/2024 Influenza, Trivalent (FLUARI X, AFLURIA, FLULAVAL, FLUZONE) Preservative Free IM 06/21/2019,07/06/2018,06/15/2016,06/20 Pneumococcal Conjugate 13-Valent 07/08/2020 Pneumococcal Polysaccharide 23-Valent 07/10/2021 ,06/21/2019 RSV, Bivalent, Protein Subun it RSVPREF (ABRYSVO), Diluent Reconstituted, 0.5 mL PF 07/29/2023 Tdap 11/17/2021,04/04/2018,04/28/2016 Family History Medical History Relation Name Comments Cerebral aneurysm Brother Cerebral aneurysm Father Diabetes Mother Fide Heart disease Mother Fide Kidney disease Mother Fide Celiac disease Sister 1 Cathleen Cerebral aneurysm Sister 1 Cathleen Cholelithiasis Sister 2 Carlotta Cancer, colon Neg Hx Colon cancer Neg Hx Relation Name Status Comments Brother Father Mother Fide Sister 1 Cathleen Sister 2 Carlotta Alive Social History Tobacco Use Types Packs/Day Years Used Date Smoking Tobacco: Every Day Cigarettes 1 47 Started: 1977 Smokeless Tobacco: Never Tobacco Cessation:Ready to Q uit: No; Counseling Given: Yes Alcohol Use Standard Drinks/Week Comments Yes 2 [...] or null) 0 05/30/2024 3:00 PM EDT Last Filed Vital Signs Vital Sign Reading Time Taken Comments Blood Pressure 136/82 07/17/2025 1:49 PM EST Pulse 58 07/17/2025 1:49 PM EST Temperature 36.8 C (98.3 F) 05/18/2025 1:16 PM EDT Respiratory Rate 12 07/17/2025 1:49 PM EST Oxygen Saturation 92% 05/18/2025 1:16 PM EDT Inhaled Oxygen Concentration - - Weight 117 kg (259 lb) 07/17/2025 1:49 PM EST Height 180.3 cm (5' 11 ) 05/29/2025 1:02 PM EDT Body Mass Index 36.12 05/29/2025 1:02 PM EDT Plan of Treatment Upcoming Encounters Date Type Department Care Team (Late st Contact Info) Description 09/03/2025 2:15 PM EST Office Visit [facility] Department of Internal Medicine [address] [phone] Jacob Willis MD [address] [place] [address] 02/14/2026 12:30 PM EDT Appointment [address] [phone] Shilpa Wilkes MD [address] [place] [phone] 02/14/2026 1:45 PM EDT Ancillary Procedure [address] [phone] Shilpa Wilkes MD [address] [place] [address] 02/18/2026 1:20 PM EDT Office Visit [address] [phone] Shilpa Wileks MD [address] [place] [address] 05/24/2026 1:00 PM EDT Office Visit [facility] Department of Internal Medicine & Nephrology [place] [address] [place] [phone] Mark Nunez MD [address] [address] Health Maintenance Due Date Last Done Comments Advance Care Planning 1955 Hepatitis C Virus Screening 1956 Foot Exam 1966 Ophthalmology Exam 1966 Zoster (Shingles) Vaccine (1 of 2) 1975 Abdominal Aortic Aneurysm (AAA) Screening 2021 Influenza Vaccine 04/13/2025 06/29/2024, , 06/11/2022, Additional history exists COVID-19 Vaccine ( season) 2025 06/29/2024, 07/29/2023, 06/11/2022, Additional history exists Hemoglobin A1C 05/15/2025 02/12/2025, 01/12, 02/11/2024, Additional history exists Creatinine with GFR 02/12/2026 02/12/2025, 4 Lipid Panel 02/12/2026 02/12/2025 Microalbumin/Creatinine Ratio Urine 02/12/2026 02/12/2025, 02/11/2024, 04/02/2020 Lung Cancer Screening (LDCT) 07/17/2026 07/17/2025, 07/26/2020 DTaP/Tdap/Td Vaccines (4 - Td or Tdap) 11/18/2031 11/17/2021, 04/04/2018, 04/28/2016 Colonoscopy 04/22/2033 04/22/2023, 04/13, 05/09/2020, Additional history exists Pneumococcal Vaccines 50+ Completed 2020, 07/08/2020, 06/21/2019 RSV Vaccine 50 years and older and Patients Completed 07/29/2023 Hepatitis B Vaccines Aged Out No long er eligible based on patient's age to complete this topic Procedures Procedure Name Priority Date/Time Associated Diagnosis Comments ECG 12-LEAD Routine 07/17/2025 1:42 PM EST Primary hypertension MICROALBUMIN, CREATININE, URINE, RANDOM Routine 02/12/2025 12:00 AM EDT Morbid obesity (HCC) HEMOGLOBIN A1C Routine 02/12/2025 12:00 AM EDT Morbid obesity (HCC) LIPID PANEL REFLEX DIRECT LDL Routine 02/12/2025 12:00 AM EDT BASIC METABOLIC PANEL Routine 02/12/2025 12:00 AM EDT Morbid obesity (HCC) HX GASTROENTEROLOGY COLONOSCOPY-SCAN 04/22/2023 8:57 AM EDT from Last 3 Months or Most Recently Relevant to Health Maintenance Results * ECG 12 lead (07/17/2025 1:42 PM EST) Pathologist [facility] Ventricular rate 58 BPM EKG [facility] Atrial rate 58 BPM EKG [facility] P-R interval 162 ms EKG [facility] QRS duration 86 ms EKG [facility] Q-T interval 428 ms EKG [facility] QTC calculation (Bazett) 420 ms EKG [facility] P axis -33 degrees EKG [facility] R axis -5 degrees EKG [facility] T axis 13 degrees EKG [facility] 07/17/2025 1:42 PM EST Narrative EKG [facility] - 07/17/2025 2:12 PM EST Ectopic atrial rhythm Inferior infarct , age undetermined Abnormal ECG No previous ECGs available Confirmed by MD Wilkes Sneha ([id number]) on 07/17/2025 2:12:43 PM Procedure Note Shilpa Wilkes MD - 07/17/2025 Ectopic atrial rhythm Inferior infarct , age undetermined Abnormal ECG No previous ECGs available Confirmed by MD Wilkes Sneha ([id number]) on 07/17/2025 2:12:43 PM Shilpa Wilkes MD ECG ORDERABLES Final Result [facility] * (ABNORMAL) Lipid Panel Reflex Direct LDL (02/12/2025 12:00 AM EDT) Cholesterol, Total 140 112 - 239 mg/dL [facility] Triglycerides 152(H) <150 mg/dL [facility] Total Hdl-C Direct 40 40 - 120 mg/dL [facility] LDL Cholesterol 70 57 - 130 mg/dL [facility] Comment: Limitations: Triglycerides >or= 400 mg/dl, samples containing significant amounts of chylomicrons (nonfasting specimen), or in patients with type III hyperlipoproteinemia this calculated LDL may be invalid and a direct LDL is recommended. Risk Factor 3.5 3.3 - 5.0 [facility] Non HDL Cholesterol 100 [facility] 02/12/2025 02/12/2025 8:5 6 PM EDT Jacob Willis MD LAB BLOOD ORDERABLES Final Resu lt Performing Organization Address [facility] [place] [address], * Microalbumin, Creatinine, Urine, Random (02/12/2025 12:00 AM EDT) Microalbumin,Ur ine 22 mg/L [facility] Comment: Reference range not established. Creatinine, Urine 115.1 mg/dL [facility] Comment: 1st Morning Urine: Male: 39 - 259 mg/dL Female: 28 - 217 mg/dL Microalbumin/Cr eatinine Ratio 19.1 <30.0 mg/g CREAT [facility] Urine Voided urine specimen / Unknown 02/12/2025 02/12/2025 8:54 PM EDT Maykel Vizcaino MD URINE ORDERABLES Final Re sult Performing Organization Address [facility] Co de Phone Number [address] * (ABNORMAL) Hemoglobin A1C (02/12/2025 12:00 AM EDT) Hemoglobin A1C 8.4(H) 4.2 - 5.6 % of total Hgb [facility] Comment: HbA1c levels below the established reference range may indicate recent episodes of hypoglycemia, the presence of Hb variants or shortened lifespan of red cells. Clinical correlation and/or hemoglobin electrophoresis may be indicated. Blood Blood specimen / Unknown 02/12/2025 02/12/2025 8:52 PM EDT us Maykel Vizcaino MD LAB BLOOD ORDERABLES Gi vizcarra Result [address] [address], * (ABNORMAL) BASIC METABOLIC PANEL (02/12/2025 12:00 AM EDT) Glucose 133(H) 70 - 99 mg/dL [facility] Blood Urea Nitrogen 14 7 - 22 mg/dL [facility] Creatinine, Ser 0.8 0.5 - 1.2 mg/dL [facility] Bun / Creat Ratio 18 11 - 30 [facility] Sodium 145 133 - 145 mmol/L [facility] Potassium 5.1 3.3 - 5.1 mmol/L [facility] Chloride 106 96 - 108 mmol/L [facility] CO2 26 22 - 31 mmol/L [facility] Anion Gap 13 3 - 19 mmol/L [facility] Calcium 9.9 8.8 - 10.6 mg/dL [facility] GFR Estimated (calculated) >60 >60 [facility] Comment: As of 2021, the [facility] has updated the creatinine- based estimated glomerular filtration rate (eGFRcr) to the updated CKD-EPI 2020 equation. This change removes the race coefficient of the older calculation, and was made based on recommendations from the National Kidney Foundation and the [place] [employer]'s Task Force. The new eGFRcr has similar overall performance characteristics to the older equation and has been assessed to not have potential consequences that disproportionately affect any one group of individuals. However, some mild variation from the older eGFR equation can be expected especially in younger age patients and at higher eGFRcr values. Blood Blood specimen / Unknown 02/12/2025 02/12/2025 8:52 PM EDT us Maykel Vizcaino MD LAB BLOOD ORDERABLES Gi l Result [facility] [address] [place] [address], * HX GASTROENTEROLOGY COLONOSCOPY-SCAN (04/22/2023 8:57 AM EDT) Bernabe Bobby MD HX AMB PROCEDURES Final Result from Last 3 Months or Most Recently Relevant to Health Maintenance Insurance AETNA D MEDICARE AETNA MGD MEDICARE AETNA D MEDICARE AETNA D MEDICARE [address] [place] [address] AETNA D MEDICARE Care Teams Smoke Control Supervisor Relationship Specialty Start Date End Date Jacob Willis MD [address] [place] [address] PCP - General Internal Medicine 02/07/25 Jacob Willis MD [address] [place] [address] PCP - Lisandro Quiroga MA Attributed 07/14/25 Marie Hayes DO [address] [place] [address] Endocrinology 02/11/24 Shilpa Wilkes MD [address] [place] [address] Primary Medical Office Worker Cardiovascular Disease 06/19/25
--- OUTSIDE RECORDS SUMMARY | 2025-08-31 07:29 | XMS_ITS | Clinical Summary ---
Author Organization [facility] Address [address] [place] [address] Care Team Providers Care Background Check Coordinator Name Role Phone Jaymie Us Primary Care Provider [phone] Allergies Active Allergy Reactions Criticality Noted Date Comments Bacitracin Rash Low 04/27/2012 Bacitracin-Polymyxin B Rash Low 04/05/2020 Benzalkonium Chloride Rash Low 04/27/2012 Gramicidin D Rash Low 04/27/2012 Hydrocortisone Rash Low 04/27/2012 Metformin Diarrhea Low 04/02/2020 Bufnh-Fpktc-Txuncqt-Pramoxine Rash High 2019 Neomycin Sulfate Rash Low 04/27/2012 Neomycin-Polymyxin B Gu 11/13/2013 Polymyxin B Rash Low 04/27/2012 Medications blood sugar diagnostic (glucose blood) strip Check blood sugar twice daily. 299 strip 3 8 Active lancets (ONETOUCH DELICA LANCETS) 30 gauge misc Check blood sugar twice daily. 200 each 3 8 Active Additional Information Patient not taking.Reported on 04/29/2020 blood-glucose meter (ONETOUCH VERIO IQ METER) misc dsipo #1 Check blood sugar twice dialy. E11.8; npi = [id number]; lifetime use 1 each 8 Active Additional Information Patient not taking.Reported on 04/29/2020 blood sugar diagnostic (FreeStyle Lite Strips) strip FreeStyle Lite Strips DX E11.65, Use one strip to test blood glucose levels four times a day. Active lancets (freestyle) 28 gauge misc to check blood sugar twice daily 3 Active glipiZIDE (GLUCOTROL) 5 mg tablet Take by mouth 2 (two) times a day. 4 Active sertraline (ZOLOFT) 100 mg tablet Take by mouth daily. Active vitamin E 1,000 unit capsule Take 1,000 Units by mouth daily. Active amLODIPine (NORVASC) 10 mg tablet amlodipine 10 mg tablet TAKE ONE TABLET BY MOUTH ONE TIME DAILY Active atorvastatin (LIPITOR) 20 mg tablet daily. Active carvediloL (COREG) 12.5 mg tablet 2 (two) times a day. 0 Active hydroCHLOROthia zide (MICROZIDE) capsule 2 (two) times a day. 0 Active lisinopriL (PRINIVIL) 40 mg tablet 0 Active cholecalciferol , vitamin D3, (VITAMIN D3 ORAL) Take by mouth. Activ e co-enzyme Q-10 50 mg capsule Take 50 mg by mouth daily. Active cyanocobalamin, vitamin B-12, (VITAMIN B-12 ORAL) Take by mouth. Activ e FreeStyle Lissette 2 Sensor kitIndications: Type 2 diabetes mellitus with hyperglycemia, without long-term current use of insulin (HCC) 1 each every 14 (fourteen) days. 2 kit 11 0 Active FreeStyle Precision Fab Strips stripIndication s:Type 2 diabetes mellitus with hyperglycemia, without long-term current use of insulin (HCC) Use with Freestyle Lissette 2 as directed. Diagnosis code; 50 strip 3 0 Active semaglutide 0.25 mg or 0.5 mg(2 mg/1.5 mL) pen injector Inject 0.25 mg under the skin every 7 days. 2 Syringe 5 0 Active canagliflozin (INVOKANA) 300 mg tablet tablet Take 1 tablet (300 mg total) by mouth daily. 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 Diabetic complication 04/02/2020 Hyperlipidemia 04/02/2020 Hypertension 04/02/2020 Family History Medical History Relation Comments Cerebral aneurysm Brother Cerebral aneurysm Father Diabetes Mother Cerebral aneurysm Sister Relation Status Comments Brother Father Mother Sister Social History Tobacco Use Types Packs/Day Years Used Date Smoking Tobacco: Heavy Smoker Smokeless Tobacco: Never Alcohol Use Standard Drinks/Week Comments Yes 0 (1 standard drink = 0.6 oz pur e alcohol) Sex and Gender Information Value Date Recorded Sex Assigned at Not on file Legal Sex Male 9:05 AM EST Gender Identity Not on file Sexual Orientation Not on file Last Filed Vital Signs Vital Sign Reading Time Taken Comments Blood Pressure 110/74 05/31/2020 11:32 AM EDT Pulse 56 05/31/2020 11:32 AM EDT Temperature 36.2 C (97.2 F) 04/02/2020 12:44 PM EDT Respiratory Rate - - Oxygen Saturation - - Inhaled Oxygen Concentration - - Weight 106 kg (233 lb 9.6 oz) 05/31/2020 11:32 A M EDT Height 180.3 cm (5' 11 ) 04/29/2020 2:52 PM EDT Body Mass Index 32.58 04/29/2020 2:52 PM EDT Plan of Treatment Health Maintenance Due Date Last Done Comments CT Colonography 1956 Diabetes: Kidney Health Evaluation 1955 FIT-DNA (Cologuard) 1955 FIT 1955 FOBT 1955 Flex Sigmoidoscopy - 5y 1955 HIV Screening 1956 Diabetes: Retinopathy Screening 1974 Hepatitis C Screening 1974 Zoster Vaccines (1 of 2) 2006 Diabetes: Hemoglobin A1C 10/03/2020 04/02/2020 COVID-19 Vaccine (4 - season) 2025 07/09/2021, 12/19/2020, 11/21/2020 Influenza Vaccine (#1) 2025 , 07/29/2023, 06/11/2022, Additional history exists DTaP,Tdap,and Td Vaccines (4 - Td or Tdap) 11/18/2031 11/17/2021, 04/04/2018, 04/28/2016 Colonoscopy 04/22/2033 04/22/2023 Colorectal Cancer Screening 04/22/2033 Diabetes: Urine Microalbumin Discontinued 04/02/2020 Pneumococcal Vaccine, 50+ Years Completed 07/10/2021, 07/08/2020, 06/21/2019 HPV Vaccines Aged Out No longer eligi ble based on patient's age to complete this topic Hepatitis A Vaccines Aged Out No long er eligible based on patient's age to complete this topic Meningococcal Vaccine Aged Out No joe annabel eligible based on patient's age to complete this topic Procedures Procedure Name Priority Date/Time Associated Diagnosis Comments HEMOGLOBIN A1C Routine 04/02/2020 3:13 PM EDT Diabetic complication (CMS/HCC) Hyperlipidemia, unspecified hyperlipidemia type Hypertension, unspecified type Watery diarrhea syndrome MICROALBUMIN, URINE, RANDOM WITH CREATININE Routine 04/02/2020 2:55 PM EDT Diabetic complication (CMS/HCC) Hyperlipidemia, unspecified hyperlipidemia type Hypertension, unspecified type Watery diarrhea syndrome from Last 3 Months or Most Recently Relevant to Health Maintenance Results * (ABNORMAL) Hemoglobin A1c (04/02/2020 3:13 PM EDT) Hemoglobin A1C 7.7(H) 4.4 - 6.4 % 04/02/2020 4:11 PM EDT [facility] Blood specimen (specimen) Venous blood specimen / Unknown Venipuncture / Unknown 04/02/2020 3:13 PM EDT 04/02/2020 3:18 PM EDT Narrative [facility] - 04/02/2020 4:11 PM EDT HbA1C greater than or equal to 6.5% diagnosis for Diabetes Mellitus. In the absence of unequivocal hyperglycemia, test should be confirmed by repeat testing. ADA Guidelines: Diagnosis and Classification of Diabetes Mellitus (position statement), Diabetes Care 2010; 33:S62-9. Hemoglobin A1C results may be inaccurate if abnormal hemoglobins are present. us Femi Mora MD LAB BLOOD ORDERABLES NO STAT Final Result [facility] [address] [place] [address], [place] [phone] * Microalbumin/creatinine ratio (04/02/2020 2:55 PM EDT) Microalbumin/Creat Ratio 04/02/2020 4:32 PM EDT [facility] Comment:Unable to perform ca lculation, Urine Microalbumin < 0.5 mg/dl. Creatinine, Urine, Random 62 mg/dL 04/02/2020 4:32 PM EDT [facility] Comment:The laboratory does not have established reference ranges for this test. Interpretation of results is at the discretion of the ordering physician. Urine specimen (specimen) Urine specimen obtained by clean catch procedure / Unknown Non-blood Collection / Unknown 04/02/2020 2:55 PM EDT 04/02/2020 2:55 PM EDT us Femi Mora MD LAB URINE ORDERABLES Final Re sult [facility] [address] [place] [address], [place] [phone] from Last 3 Months or Most Recently Relevant to Health Maintenance Insurance [employer] - OUT OF STATE Advance Directives For more information, please contact: [phone] Documents on File Type Date Recorded Patient Needle Process Felt Goods Supervisor Expl anation Advance Directives 04/23/2021 1:52 PM - Care Teams Background Check Coordinator Relationship Specialty Start Date End Date Jaymie Us [address] [facility] [place] [address] PCP - General Family Medicine 04/29/20
[2025-08-31 08:10] LABS: Hematocrit 47.2 % (42.0-52.0); Hemoglobin 15.9 g/dl (14.0-18.0); Mean Corpuscular HGB Conc 33.7 g/dl (31.0-36.0); Mean Corpuscular Hemoglobin 32.4 pg (27.0-33.0); Mean Corpuscular Volume 96.1 fL (80.0-98.0); NRBC Abs Auto 0.000 X10*3/uL (0.0-0.012); NRBC Pct Auto 0.0 /100WBC (0.0-0.2); Platelet Count 220 X10*3/uL (160-400); Red Blood Count 4.91 X10*6/uL (4.60-5.80); White Blood Count 7.4 X10*3/uL (4.8-10.8)
[2025-08-31 08:49] LABS: Prostate Specific Antigen 3.97 ng/mL (<0.05-4.0)
== END 2025-08-31 07:26 | disposition home or self-care (01) ==
LOC: HO.LAB 07:25
PROVIDERS: PCP Orthopaedic Surgery; Visit Provider Urology
DX: E29.1 Testicular hypofunction (principal); Z12.5 Encounter for screening for malignant neoplasm of prostate
CPT/HCPCS: 36415; 84153; 84403; 85027